=== PATIENT | male | born 1950 | race Caucasian/White ===

== ENCOUNTER → 2017-07-06 09:35 | Outpatient (CLI) | payer MEDICARE, SELFPAY ==
[2017-07-06 10:56] LABS: PSA,Total- Diagnostic < 0.01 ng/mL (0.0-4.0)
== END ==
PROVIDERS: Family Provider Family Medicine; PCP Family Medicine; Visit Provider Urology
DX: C61 Malignant neoplasm of prostate (principal)
CPT/HCPCS: 36415; 84153

== ENCOUNTER → 2017-10-15 10:00 | Outpatient (CLI) | payer MEDICARE, SELFPAY ==
--- NOTE | 2017-10-15 10:00 | DT_ITS ---
This patient was seen during an EMR downtime October 08, 2017 - October 15, 2017. This patient may have a combination of paper and electronic documentation or all paper documentation. All documentation is viewable within the e-chart portion of [facility] for each patient visit.
[2017-10-15 10:44] LABS: PSA,Total- Diagnostic < 0.01 ng/mL (0.0-4.0)
== END ==
PROVIDERS: Family Provider Family Medicine; PCP Family Medicine; Visit Provider Urology
DX: C61 Malignant neoplasm of prostate (principal)
CPT/HCPCS: 36415; 84153

== ENCOUNTER 2018-01-29 10:42 | Day surgery (SDC) | payer MEDICARE, SELFPAY ==
--- NOTE | 2018-01-29 12:58 | OP.PCM_ITS ---
Problem List (1) Atrial fibrillation Status: Acute Operative Report Date of Procedure: 01/29/18 Procedure: Synchronized biphasic DC cardioversion Indications: Atrial fibrillation Consent: Per the patient Premedications: Per Dr. Shade Sutton pulmonology and critical care medicine with propofol 60 mg IV push total Procedure: Synchronized biphasic DC cardioversion: 200 J x1: Result: Sinus rhythm with PACs Complications: No apparent complications This note was generated with [employer] dictation software. It may contain incorrect words, spelling, and punctuation that were not noted in checking the note before signing.
--- NOTE | 2018-01-29 15:06 | OP.PCM_ITS ---
Problem List (1) Atrial fibrillation Status: Acute Qualifiers: Atrial fibrillation type: chronic Qualified Code(s): I48.2 - Chronic atrial fibrillation (2) Obesity (BMI 30-39.9) Status: Acute (3) Prostate cancer Status: Acute Operative Report Date of Procedure: 01/29/18 - Conscious sedation CONSCIOUS SEDATION REPORT BRIEF HISTORY OF PRESENT ILLNESS: The patient is a 67-year-old male who presented to [facility] for an elective outpatient cardioversion due to underlying atrial fibrillation. The patient reports no PO intake since midnight. The patient does have a history of obstructive sleep apnea. The patient reports a history of smoking, but denies COPD. The patient denies any recent constitutional symptoms such as f chavez, chills, nausea or vomiting. The patient denies previous anesthetic complications. Patient's last known ejection fraction of 55%. PHYSICAL EXAMINATION: VITAL SIGNS: Reviewed and were acceptable. GENERAL: The patient is an obese male, in no apparent distress, speaking in full sentences. HEENT: Normocephalic, atraumatic. Mucous membranes are moist and pink. Good mouth opening noted. Trachea is midline. Good neck mobility. MP IV CHEST: S1, S2 irregularly irregular. No murmurs, rubs or gallops were noted. LUNGS: Clear to auscultation bilaterally without appreciable wheezes, rales or rhonchi. ABDOMEN: Soft, nontender, nondistended. Positive bowel sounds. EXTREMITIES: There is no clubbing, cyanosis or edema. ASA Class: II DESCRIPTION OF PROCEDURE: After confirmation of informed consent, the patient's anesthesia plan was reviewed in detail. Propofol was chosen. Risks and benefits were reviewed and the patient agreed to proceed. At 12:28 PM, the patient was given 40 mg of propofol. The patient required a total of 60 mg of propofol throughout the procedure to achieve appropriate sedation. The patient achieved an appropriate level of sedation and received 1 attempt s synchronized cardioversion, at [address] Torres at the bedside. This was successful in achieving normal sinus rhythm. The patient was monitored until 12:34 PM, at which time the patient reached their baseline mental status and function. The patient tolerated the procedure well. COMPLICATIONS: None ESTIMATED BLOOD LOSS: None RECOMMENDATIONS: Okay to recover in usual fashion. Code Visit [id number]: Other Procedure See Report - [id number]
== END 2018-01-29 14:00 | disposition home or self-care (01) ==
LOC: CLSP 10:43
PROVIDERS: Family Provider Family Medicine; PCP Family Medicine; Visit Provider Internal Medicine Cardiovascular Disease
DX: I48.0 Paroxysmal atrial fibrillation (principal); I10 Essential (primary) hypertension; E78.5 Hyperlipidemia, unspecified; G47.33 Obstructive sleep apnea (adult) (pediatric); Z79.01 Long term (current) use of anticoagulants; Z87.891 Personal history of nicotine dependence
CPT/HCPCS: 92960; 93005; J7040

== ENCOUNTER → 2018-04-16 08:57 | Outpatient (CLI) | payer MEDICARE, SELFPAY ==
[2018-04-16 10:21] LABS: PSA,Total- Diagnostic < 0.01 ng/mL (0.0-4.0)
--- OUTSIDE RECORDS SUMMARY | 2018-06-02 07:27 | XMS RPT_ITS ---
:1950 Author Organization [facility] Care Team Providers Name Role Phone CHITO MCCLELLAN Attending Unavailable VY, CHITO E Referring Unavailable HATIPOGLU, UMUR Attending Unavailable HATIPOGLU, UMUR Referring Unavailable RADHA KAMARA Attending Unavailable RADHA KAMARA Referring Unavailable VY, CHITO E Referring Unavailable VY, CHITO E Referring Unavailable VY, CHITO E Referring Unavailable VY, CHITO E Referring Unavailable HATIPOGLU, UMUR Attending Unavailable HATIPOGLU, UMUR Referring Unavailable VIDHI ATKINSON (BRUSH MACHINE SETTER) Attending Unavailable RADHA KAMARA Referring Unavailable VY, CHITO E Referring Unavailable VY, CHITO E Attending Unavailable RADHA KAMARA Referring Unavailable RADHA KAMARA Attending Unavailable RADHA KAMARA Referring Unavailable RADHA KAMARA Referring Unavailable RADHA KAMARA Referring Unavailable HATIPOGLU, UMUR Referring Unavailable HATIPOGLU, UMUR Referring Unavailable HATIPOGLU, UMUR Attending Unavailable KENNA, MARCIANO Hand Referring Unavailable RADHA KAMARA Attending Unavailable RADHA KAMARA Referring Unavailable ELDERBROCK, RADHA Russell Referring Unavailable ELDERBROCK, RADHA Russell Attending Unavailable ELDERBROCK, RADHA Russell Referring Unavailable THORPE, VIDHI (BRUSH MACHINE SETTER) Attending Unavailable THORPE, VIDHI (BRUSH MACHINE SETTER) Referring Unavailable ISIDRO, CYNDI T Admitting Unavailable ISIDRO, CYNDI Fernandez Attending Unavailable THORPE, VIDHI (BRUSH MACHINE SETTER) Referring Unavailable VY, CHITO E Referring Unavailable VY, CHITO E Attending Unavailable VY, CHITO E Referring Unavailable ELDERBROCK, RADHA Russell Referring Unavailable VY, CHITO E Referring Unavailable VY, CHITO E Referring Unavailable VY, CHITO E Referring Unavailable THORPE, VIDHI (BRUSH MACHINE SETTER) Attending Unavailable THORPE, VIDHI (BRUSH MACHINE SETTER) Referring Unavailable Denzel, Sina Santos Attending Unavailable Denzel, Sina Santos Referring Unavailable Elderbrock, Radha Primary Care Unavailable Denzel, Sina Santos Attending Unavailable Denzel, iSna Santos Referring Unavailable Elderbrock, Radha Primary Care Unavailable Denzel, Sina Santos Attending Unavailable Denzel, Sina Santos Referring Unavailable Elderbrock, Radha Primary Care Unavailable MoodisTommy phelan Attending Unavailable MoodispaTommy amin Referring Unavailable Elderbrock, Radha Primary Care Unavailable Tommy Torres Attending Unavailable MoodTommy de jesus Referring Unavailable Elderbrock, Radha Primary Care Unavailable Tommy Torres Consulting Unavailable PROBLEMS PROBLEMS DATE TYPE CONDITION / CODE ATTENDING STATUS SOURCE 04/16/2018 Unknown C61 - Malignant Sina Mahoney Active [facility] C61(ICD-10) Repository 04/16/2018 Active Gastro-esophageal VIDHI ATKINSON Active [facility] reflux disease (BRUSH MACHINE SETTER) [place] without esophagitis Repository / K21.9(ICD-10) 02/26/2018 Active Cough / R05(ICD-10) ISIDRO, Active [facility] CYNDI Fernandez [place] Repository 11/23/2017 Active Paroxysmal atrial NA Active [facility] fibrillation / [facility] [place] I48.0(ICD-10) Repository 10/24/2017 Active Unspecified atrial NA Active [facility] fibrillation / [facility] [place] I48.91(ICD-10) Repository 08/28/2012 Active Obstructive sleep NA Active [facility] apnea (adult) [place] (pediatric) / Repository G47.33(ICD-10) 10/24/2017 Active Unspecified asthma, NA Active [facility] uncomplicated / [place] J45.909(ICD-10) Repository 03/17/2005 Active Essential (primary) NA Active [facility] hypertension / [facility] I10(ICD-10) Repository 06/18/2017 Active Encounter for NA Active [facility] general adult [facility] medical examination Repository without abnormal findings / Z00.00(ICD-10) 06/18/2017 Active Elevated prostate NA Active [facility] specific antigen [facility] (PSA) / Repository R97.20(ICD-10) 06/18/2017 Active Encounter for NA Active [facility] screening for [facility] lipoid disorders / Repository Z13.220(ICD-10) PROCEDURES PROCEDURES No Procedure Records FoundRESULTS RESULTS PSA,TOTAL- DIAGNOSTIC Collected: 04/16/2018 Status: F Source: [place] 9:[address] [facility] REPOSITORY TYPE CODE TESTS RESULT OUT OF RANGE REFERENCE UNITS LAB [id number] 0.0-4.0 ng/mL PSA, Normal DIAGNOSTIC < 0.01 Result Comment: This test was performed using the TPSA assay method for the [employer] chemistry system. Values obtained with different assay methods cannot be used interchangably. When changing PSA assays in the course of monitoring a patient, additional sequential testing should be carried out to confirm baseline values. Performed By: #### [id number] #### [facility] [address] [place], [address] PROGRESS Observed: 04/16/2018 Status: COMPLETED Source: [place] 8:[address] [facility] REPOSITORY HNO ID: [id number] Author: Vidhi Atkinson Service: (none) Author Type: Nurse Practitioner Type: Progress Notes Filed: 04/16/2018 8:45 AM Note Text: Silviano Rangel a 67 year old male who is returning for follow up regarding cough. I saw the patient in consultation on 11/27/17. That note has been reviewed. His Oral And Maxillofacial Pathologist is at [facility]. ? The patient was seen by Dr. Galloway for upper endoscopy 02/26/18. The procedure report has been reviewed and findings as follows: Impression: ? - Normal examined jejunum. ? - Normal examined duodenum. ? - Normal stomach. Biopsied. ? - Normal lower third of esophagus. Biopsied. ? - Normal middle third of esophagus. Biopsied. ? FINAL DIAGNOSIS 1. Antrum, biopsy (A) ?Antral mucosa with minimal chronic inflammation; no evidence of H. pylori. 2. Esophagogastric junction, biopsy (B) - Squamous mucosa with mild reactive changes. - No evidence of intestinal metaplasia or dysplasia. 3. Mid esophagus, biopsy (C) - Squamous mucosa with no diagnostic alteration. - No evidence of eosinophilic esophagitis. ? On follow up 03/06/18 I reviewed the procedure and pathology reports, as well as the images, with the patient. At that visit he was reporting that he has been taking omeprazole 40mg each morning. Now able to ramp up his physical activity. Using Prilosec OTC, which he felt does help with the cough and any reflux. He told me that by 5:00 (12 hours after first dose) he starts to experience shortness of breath. He told me that he hasn't had a cough for quite some time. Asked if he should take another omeprazole with dinner. I suggested trying ranitidine at dinner. He agreeed. The patient was seen in Pulmonary medicine on 03/20/18 for the shortness of breath. That note has been reviewed. Presenting complaint: The patient presents today stating that he has been able to increase his exercise. Now faster and increased incline on the treadmill. He tells me that he would like to try pantoprazole. REVIEW OF SYSTEMS: GENERAL: No unplanned weight loss. GI: The patient states that his appetite has been good. He does get hungry. There has not been indigestion or heartburn. There has not been regurgitation. Bowel habits have been regular. No abdominal pain. All other reviewed and negative other than HPI. PAST MEDICAL HISTORY Diagnosis Date - Abdominal pain, generalized - Arrhythmia - Asthma - Dilated aortic root (HCC) - Dyspnea on exertion 11/2017 - Mild aortic insufficiency - Obstructive sleep apnea - PAF (paroxysmal atrial fibrillation) ([facility]) 11/23/2017 - RBBB - Snoring - Unspecified essential hypertension Essential hypertension PAST SURGICAL HISTORY Procedure Laterality Date - APPENDECTOMY - CARPAL TUNNEL RIGHT WRIST 01/04/10 - COLONOSCOP W/ OR W/O [facility] SPEC 01/20/07 screening thru [facility] - COLONOSCOP W/ OR W/O [facility] SPEC 07/25/2016 normal colonoscopy 10 year follow up - EGD W/O OR W/BRUSH/WASH 06/23/2008 EGD - EGD W/O OR W/BRUSH/WASH 02/26/2018 EGD - LAP CHOLECYSTECT/CHOLANGIOGRAPHY 07/07/08 - LEFT WRIST CARPAL TUNNEL ONLY 01/04/10 - PAST SURGICAL HISTORY OF 01/2004 HEEL SPUR left - PAST SURGICAL HISTORY OF 11/16/2016 Nose procedure, by Dr. Chua - PAST SURGICAL HISTORY OF N/A 05/23/2017 Prostectomy - Dr. Cohen - REMOVAL OF HEEL SPUR 12/20/09 right heel - REMOVAL OF TONSILS,<12 Y/O Tonsillectomy - REPAIR ROTATOR CUFF,ACUTE Rotator cuff repair - ROTATOR CUFF REPAIR 2011 right FAMILY HISTORY Problem Relation Age of Onset - Heart Mother - Stroke Mother - None Father - None Brother Current Outpatient Prescriptions: fluticasone-salmeterol (ADVAIR DISKUS) 100-50 mcg/dose dsdv Inhale 1 Puff as instructed twice daily. Rinse and gargle mouth with water after each use. Disp: 1 Inhaler Rfl: 5 omeprazole (PRILOSEC) 20 mg capsule Take 1 capsule by mouth once daily. Disp: 180 capsule Rfl: 3 ranitidine (ZANTAC) 150 mg tablet Take 1 tablet by mouth daily with dinner. Take one (1) tablet twice a day. Disp: 90 tablet Rfl: 3 losartan-hydrochlorothiazide (HYZAAR) 100-25 mg per tablet Take 1 tablet by mouth once daily. Disp: 90 tablet Rfl: 3 apixaban (ELIQUIS) 5 mg tab(s) Take 1 tablet by mouth twice daily. Disp: 60 tablet Rfl: 11 triamcinolone (KENALOG) 0.025 % cream Apply 1 application to affected area twice daily. Disp: 30 g Rfl: 2 COMPOUNDED PRESCRIPTION CPAP @ 11 cm of water with humidification. Mask (per patient preference) optional chin strap (if indicated) , filters, tubing, humidifier and lifetime supplies. Dx. TAE 327.23 Disp: Rfl: 0 Cholecalciferol, Vitamin D3, 1,000 unit cap Take 1 capsule by mouth once daily. Disp: Rfl: 0 vitamin b complex (B-COMPLEX) ORAL Tab one tablet daily Disp: 0 Rfl: 0 No current facility-administered medications for this visit. SOCIAL HISTORY: Patient is . He smoked for about a year, 40 years ago. He reports his alcohol use as never. PHYSICAL EXAMINATION: Blood pressure 127/83, pulse 101, height 182.9 cm (6'), weight 122.9 kg (271 lb). General Appearance: Well appearing, alert, in no acute distress, well-hydrated, well nourished. Eyes: Anicteric sclera. Lungs: lungs clear to auscultation. No wheezing, rhonchi, rales. Heart: RRR without murmur. Abdomen: Abdomen soft, non-tender. Bowel sounds normal. No masses, organomegaly. Extremities: No deformities, edema. Impression: GERD without esophagitis Plan: Switch to pantoprazole. May stop ranitidine. MyChart update. 3 month follow up. He agrees with this plan. I have personally interviewed and examined this patient. I have reviewed the information that the CATTLE FARMER entered for this encounter. I spent 20 minutes in the visit, with greater than 50% of the total mfjh-ya-unfp time of the visit in counseling and coordination of care. Vidhi Atkinson RN APRN.RENEE CNOV Observed: 04/16/2018 Status: COMPLETED Source: [place] 8:[address] [facility] REPOSITORY [facility] SILVIANO RANGEL ([id number]) 1950 M Date Time Provider Department 04/16/18 8:10 AM VIDHI ATKINSON (DEBORAH) [facility] During your visit today, we recorded the following information about you: Pulse Blood pressure Weight Height 101/minute 127/83 122.9 kg 1.829 m Vidhi Atkinson RN APRN.RENEE 04/16/2018 8:45 AM Signed Silviano Rangel a 67 year old male who is returning for follow up regarding cough. I saw the patient in consultation on 11/27/17. That note has been reviewed. His Oral And Maxillofacial Pathologist is at [facility]. ? The patient was seen by Dr. Galloway for upper endoscopy 02/26/18. The procedure report has been reviewed and findings as follows: Impression: ? - Normal examined jejunum. ? - Normal examined duodenum. ? - Normal stomach. Biopsied. ? - Normal lower third of esophagus. Biopsied. ? - Normal middle third of esophagus. Biopsied. ? FINAL DIAGNOSIS 1. Antrum, biopsy (A) ?Antral mucosa with minimal chronic inflammation; no evidence of H. pylori. 2. Esophagogastric junction, biopsy (B) - Squamous mucosa with mild reactive changes. - No evidence of intestinal metaplasia or dysplasia. 3. Mid esophagus, biopsy (C) - Squamous mucosa with no diagnostic alteration. - No evidence of eosinophilic esophagitis. ? On follow up 03/06/18 I reviewed the procedure and pathology reports, as well as the images, with the patient. At that visit he was reporting that he has been taking omeprazole 40mg each morning. Now able to ramp up his physical activity. Using Prilosec OTC, which he felt does help with the cough and any reflux. He told me that by 5:00 (12 hours after first dose) he starts to experience shortness of breath. He told me that he hasn't had a cough for quite some time. Asked if he should take another omeprazole with dinner. I suggested trying ranitidine at dinner. He agreeed. The patient was seen in Pulmonary medicine on 03/20/18 for the shortness of breath. That note has been reviewed. Presenting complaint: The patient presents today stating that he has been able to increase his exercise. Now faster and increased incline on the treadmill. He tells me that he would like to try pantoprazole. REVIEW OF SYSTEMS: GENERAL: No unplanned weight loss. GI: The patient states that his appetite has been good. He does get hungry. There has not been indigestion or heartburn. There has not been regurgitation. Bowel habits have been regular. No abdominal pain. All other reviewed and negative other than HPI. PAST MEDICAL HISTORY Diagnosis Date - Abdominal pain, generalized - Arrhythmia - Asthma - Dilated aortic root (HCC) - Dyspnea on exertion 11/2017 - Mild aortic insufficiency - Obstructive sleep apnea - PAF (paroxysmal atrial fibrillation) (HCC) 11/23/2017 - RBBB - Snoring - Unspecified essential hypertension Essential hypertension PAST SURGICAL HISTORY Procedure Laterality Date - APPENDECTOMY - CARPAL TUNNEL RIGHT WRIST 01/04/10 - COLONOSCOP W/ OR W/O [facility] SPEC 01/20/07 screening thru [facility] - COLONOSCOP W/ OR W/O [facility] SPEC 07/25/2016 normal colonoscopy 10 year follow up - EGD W/O OR W/BRUSH/WASH 06/23/2008 EGD - EGD W/O OR W/BRUSH/WASH 02/26/2018 EGD - LAP CHOLECYSTECT/CHOLANGIOGRAPHY 07/07/08 - LEFT WRIST CARPAL TUNNEL ONLY 01/04/10 - PAST SURGICAL HISTORY OF 01/2004 HEEL SPUR left - PAST SURGICAL HISTORY OF 11/16/2016 Nose procedure, by Dr. Chua - PAST SURGICAL HISTORY OF N/A 05/23/2017 Prostectomy - Dr. Cohen - REMOVAL OF HEEL SPUR 12/20/09 right heel - REMOVAL OF TONSILS,<12 Y/O Tonsillectomy - REPAIR ROTATOR CUFF,ACUTE Rotator cuff repair - ROTATOR CUFF REPAIR 2011 right FAMILY HISTORY Problem Relation Age of Onset - Heart Mother - Stroke Mother - None Father - None Brother Current Outpatient Prescriptions: fluticasone-salmeterol (ADVAIR DISKUS) 100-50 mcg/dose dsdv Inhale 1 Puff as instructed twice daily. Rinse and gargle mouth with water after each use. Disp: 1 Inhaler Rfl: 5 omeprazole (PRILOSEC) 20 mg capsule Take 1 capsule by mouth once daily. Disp: 180 capsule Rfl: 3 ranitidine (ZANTAC) 150 mg tablet Take 1 tablet by mouth daily with dinner. Take one (1) tablet twice a day. Disp: 90 tablet Rfl: 3 losartan-hydrochlorothiazide (HYZAAR) 100-25 mg per tablet Take 1 tablet by mouth once daily. Disp: 90 tablet Rfl: 3 apixaban (ELIQUIS) 5 mg tab(s) Take 1 tablet by mouth twice daily. Disp: 60 tablet Rfl: 11 triamcinolone (KENALOG) 0.025 % cream Apply 1 application to affected area twice daily. Disp: 30 g Rfl: 2 COMPOUNDED PRESCRIPTION CPAP @ 11 cm of water with humidification. Mask (per patient preference) optional chin strap (if indicated) , filters, tubing, humidifier and lifetime supplies. Dx. TAE 327.23 Disp: Rfl: 0 Cholecalciferol, Vitamin D3, 1,000 unit cap Take 1 capsule by mouth once daily. Disp: Rfl: 0 vitamin b complex (B-COMPLEX) ORAL Tab one tablet daily Disp: 0 Rfl: 0 No current facility-administered medications for this visit. SOCIAL HISTORY: Patient is . He smoked for about a year, 40 years ago. He reports his alcohol use as never. PHYSICAL EXAMINATION: Blood pressure 127/83, pulse 101, height 182.9 cm (6'), weight 122.9 kg (271 lb). General Appearance: Well appearing, alert, in no acute distress, well-hydrated, well nourished. Eyes: Anicteric sclera. Lungs: lungs clear to auscultation. No wheezing, rhonchi, rales. Heart: RRR without murmur. Abdomen: Abdomen soft, non-tender. Bowel sounds normal. No masses, organomegaly. Extremities: No deformities, edema. Impression: GERD without esophagitis Plan: Switch to pantoprazole. May stop ranitidine. Mobiveilhart update. 3 month follow up. He agrees with this plan. I have personally interviewed and examined this patient. I have reviewed the information that the CATTLE FARMER entered for this encounter. I spent 20 minutes in the visit, with greater than 50% of the total ilqm-aw-lvzd time of the visit in counseling and coordination of care. Vidhi Atkinson RN APRN.RENEE Atkinson RN APRN.RENEE 04/16/2018 8:37 AM Signed Try the pantoprazole. You may stop the ranitidine in a few days. Send me an update via Bouf. Follow up in 3 months. Referring Provider: VIDHI ATKINSON (DEBORAH) [[id number]] Allergies As of Date: 04/16/2018 (No Known Allergies) Date Reviewed: 04/16/2018 Reviewed by: Ade Martínez LPN - Fully Assessed Reason for Visit: follow up questions [Other] Primary Visit Diagnosis:Gastroesophageal reflux disease, esophagitis presence not specified [K21.9] Order(s):ranitidine (ZANTAC) 150 mg tabletTake 1 tablet by mouth daily with dinner.Disp: 90 tabletRfl: [address] (PROTONIX) 40 mg tabletTake 1 tablet by mouth once daily.Disp: 30 tabletRfl: 5 Prescriptions as of 04/16/2018 Sig: APIXABAN 5 MG TABLET Take 1 tablet by mouth twice * CHOLECALCIFEROL (VITAMIN D3) * Take 1 capsule by mouth once * COMPOUNDED PRESCRIPTION CPAP @ 11 cm of water with hu* FLUTICASONE 100 MCG-SALMETERO* Inhale 1 Puff as instructed t* LOSARTAN 100 MG-HYDROCHLOROTH* Take 1 tablet by mouth once d* RANITIDINE 150 MG TABLET Take 1 tablet by mouth daily * TRIAMCINOLONE ACETONIDE 0.025* Apply 1 application to affect* * B-COMPLEX TABLET one tablet daily PANTOPRAZOLE 40 MG TABLET,DEL* Take 1 tablet by mouth once d* Problem List As Of Date 04/16/2018 Noted Resolved BENIGN HYPERTENSION [I10] INVALID FOR* Sleep disturbance, unspecified [G47.9] INVALID FOR*12/26/2017 STOMACH FUNCTION DIS NEC [K31.89, R10.13] INVALID FOR* Abdominal pain, generalized [R10.84] INVALID FOR*12/26/2017 Nausea alone [R11.0] INVALID FOR*12/26/2017 Anxiety [F41.9] INVALID FOR* Hypogonadism male [E29.1] INVALID FOR* TAE (obstructive sleep apnea) [G47.33] INVALID FOR* More... Elevated prostate specific antigen (PSA) [R97.2*INVALID FOR* Encounter for screening for malignant neoplasm *INVALID FOR* Attention deficit disorder [F98.8] INVALID FOR* PAF (paroxysmal atrial fibrillation) (HCC) [I48*INVALID FOR* Cough in adult [R05] INVALID FOR*12/26/2017 More... Uncomplicated asthma [J45.909] INVALID FOR* Dermatitis [L30.9] INVALID FOR* Other instructions from your clinician: Try the pantoprazole. You may stop the ranitidine in a few days. Send me an update via Bouf. Follow up in 3 months. Prescriptions ordered this encounter Disp Refills Start End RANITIDINE 150 MG TABLET 90 t* 3 04/16/2018 Class: Med Update Route: ORAL Sig: Take 1 tablet by mouth daily with dinner. PANTOPRAZOLE 40 MG TABLET,DELAYED RE* 30 t* 5 04/16/2018 Route: ORAL Sig: Take 1 tablet by mouth once daily. Medications Discontinued During This Encounter ranitidine (ZANTAC) 150 mg tablet 90 t* 3 03/06/2018 04/16/2018 Class: Print RX Route: ORAL Sig: Take 1 tablet by mouth daily with dinner. Take one (1) tablet twice a day. Disc: Adjust Sig - Block E-Cancel omeprazole (PRILOSEC) 20 mg capsule 180 * 3 03/06/2018 04/16/2018 Class: Print RX Route: ORAL Sig: Take 1 capsule by mouth once daily. Disc: Changing Therapy/Dosage Form Disposition: Return in about 3 months (around 07/15/2018). Follow-up and Disposition History Recorded Encounter Status:Closed by VIDHI ATKINSON CNP on 04/16/18 CNOV Observed: 03/20/2018 Status: COMPLETED Source: [place] 7:[address] [facility] REPOSITORY Office Visit ([place]) SILVIANO RANGEL ([id number]) 1950 M Date Time Provider Department 03/20/18 7:55 AM ASHLEY JESUS During your visit today, we recorded the following information about you: Temperature Pulse Respiration Blood pressure 97.7 degrees 74/minute 18/minute 151/86 Weight Height 117.9 kg 1.88 m Ashley Jesus MD 03/20/2018 8:26 AM Signed Pulmonary Outpatient Follow Up Patient Name: Silviano Rangel CC: Asthma Paroxysmal Atrial fibrillation GERD TAE on CPAP Interval History: Last visit was 12/19/2017, at the time Mr Rangel was experiencing worsening shortness of breath with asthma exacerbation. He was prescribed prednisone and asking for adherence ot Advair 250/50 one inhalation twice per day. He reports his asthma is well controlled. He recently underwent an emergent cardioversion 01/29/2018 for atrial fibrillation. The procedure was completed with one sychronized biphasic shock at 200J with him returning to [facility] with PACS. He is on Eliquis and for anticoagulation and in sinus. For his Gerd he underwent an EGD on 02/26/2018 which was visualized as normal. Biopsies showed minimal chronic inflammation and mild reactive changes. They were negative for eosinophilic esophagitis, h.pylori, metaplasia and dysplasia. He is taking omeprazole 20 mg daily and rantidine 150 mg twice per day He reports compliance with his CPAP. He has been using cpap at 11 cmH20 with humidification since 2012. Immunizations: --high flu zone 01/25/2018 --prevnar 06/21/2016 Airway Routine: --fluticasone-salmeterol (advair) 250-50 one inhalation twice a day(rinse, gargle, and spit after each inhalation) Extended HPI Mr. Rangel is a 67 year old male with a past medical history of HTN and TAE who presented for a dry cough of 2 months duration, with some variable wheezing and SOB associated at times. He was given Tessalon perles which did not help cough, then placed on prednisone taper and antibiotic with some relief, but symptoms returned with steroid taper. He went to the ER and urgent care twice with SOB. He reported normal chest Xrays (not available for review). He had been very responsive to bronchodilators and oral steroid courses, with reoccurrence of cough, wheezing and SOB when tapering. He took 10mg Prednisone every other day. He used Flovent once or twice daily only when he was not feeling well. He did not use Albuterol inhaler. ? 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 Sometimes, he is affected by PVC coated fabric smoke that comes out from the machines. He remembers that his major trouble with breathing occurred during the weekdays and not over the weekends. Review of Systems Constitutional SX: Denies fever, weight loss, night sweats, malaise Eyes: denies diplopia, visual disturbance, eye redness or pain ENT: denies hoarseness, nasal discharge, oral ulcers, nonasal congestion, denies epistaxis, no throat clearing. Cardiovascular: denies angina, palpitations, orthopnea, PND, peripheral edema Respiratory: see HPI Gastrointestinal: denies odynophagia, dysphasia, nausea, vomiting,hematemesis, melanas, hematochezia, no gerd symptoms on PPI Musculoskeletal: denies joint swelling, nojoint pain, no back pain Endocrine: denies heat or cold intolerance, denies polyuria Genitourinary: denies hematuria, Integumentary: denies skin nodules, rashes Neurological: denies syncope, seizures, tremors, headaches, focal weakness Psychiatric: denies anxiety, depression, hallucinations Hematologic/Lymph: denies prolonged bleeding, swollen nodes, bruising easily Sleep: denies disruptive snoring,apneas or difficulties sleeping Physical Exam: BP 151/86 Pulse 74 Temp 36.5 ?C (97.7 ?F) (Temporal Artery) Resp 18 Ht 188 cm (6' 2) Wt 117.9 kg (260 lb) SpO2 97% BMI 33.38 kg/m? General Appearance: no resp distress Neuro: ambulatory normal mood Head: no sinus tenderness Eyes: isocoric pupils-reactive to ligh normal extra ocular movement Nose: No polyps, turbinates are normal and septum is midline Throat: clear Neck: no JVD, no palapable LN Chest: normal thoracic expansion, clear Heart: RRR no murmurs-normal s1 s2 Abdomen: soft non tender Extremities: no peripheral edema, clubbing, or cyanosis Neurologic: Normal strength, normal tone, normal gait. Data Base: Pred ? ? ? LLN ? ULN ? ? ? Pre ? ? % ? ? ? Post ? ? ?% ? ? % chg ? Date ? [id number] ? [id number] ? Time ?02:46PM ?03:13PM ? Height ?176.6 ?176.6 ? Weight ?121.5 ?121.5 ? FVC ?4.56 ? ? ?3.64 ?5.48 ? ? ?3.23 ? ? 71 ? ? ?3.29 ? ? 72 ? 2 ? FEV 1 ?3.41 ? ? ?2.64 ?4.19 ? ? ?2.37 ? ? 70 ? ? ?2.58 ? ? 76 ? 9 ? FEV1%F ? ? ?74.84 ? ? 65.17 84.52 ? ? 73.57 ? ? 98 ? ? 78.46 ? ?105 ? 7 ? FEV 2 ?3.70 ? ? ?2.66 ?4.74 ? ? ?2.76 ? ? 75 ? ? ?2.91 ? ? 79 ? 6 ? FEV 3 ?4.20 ? ? ?3.18 ?5.22 ? ? ?2.88 ? ? 69 ? ? ?3.03 ? ? 72 ? 5 ? FEV3%E ? ? ?91.74 ? ? 87.10 96.38 ? ? 89.27 ? ? 97 ? ? 92.20 ? ?101 ? 3 ? MEF 50 ? ? ? 4.20 ? ? ?2.57 ?5.82 ? ? ?2.15 ? ? 51 ? ? ?2.75 ? ? 65 ?28 ? FIF 50 ? 5.51 ? 3.99 ?-28 ? F25/75 ? 2.73 ? ? ?1.15 ?4.31 ? ? ?1.66 ? ? 61 ? ? ?2.22 ? ? 81 ?34 ? FE%FIF ?39.01 ?68.86 ? 77 ? FEV6 ? 3.08 ? 3.18 ?3 ? PEF ?8.37 ? ? ?6.01 10.73 ? ? ?7.99 ? ? 96 ? ? ?8.19 ? ? 98 ? 2 ? FET ? 13.24 ?10.97 ?-17 ? FETPEF ? 0.05 ? 0.04 ?-20 ? VBe%FV ? 3.72 ? 1.95 ?-47 ? VBEex ?0.12 ? 0.06 ?-47 ? FRCpl ?3.62 ? ? ?2.16 ?5.08 ? ? ?2.64 ? ? 73 ? ERV ?0.12 ? RV ? 2.30 ? ? ?1.54 ?3.06 ? ? ?2.52 ? ?110 ? VC ? 4.56 ? ? ?3.64 ?5.48 ? ? ?3.81 ? ? 84 ? TLC ?6.91 ? ? ?5.30 ?8.52 ? ? ?6.34 ? ? 92 ? RV%TLC ? ? ?33.84 ? ? 25.04 42.64 ? ? 39.83 ? ?118 ? DLCO ?27.32 ? ? 19.32 35.33 ? ? 23.89 ? ? 87 ? DL/VA ?4.15 ? ? ?2.95 ?5.35 ? ? ?4.45 ? ?107 ? VA ? 6.73 ? ? ?5.36 ?8.10 ? ? ?5.36 ? ? 80 ? IGNACIO ?4.56 ? ? ?3.64 ?5.48 ? ? ?3.48 ? ? 76 ? BHT ? 11.25 ? %COHb ?0.00 ? Ct of Chest 07/02/2017: 2. Lungs and Pleura: ?Minimal curvilinear opacities in the left lateral costophrenic sulcus (images 118-120). ?No pleural effusion, pneumothorax, or focal consolidation. ?3 mm noncalcified right upper lobe nodule (image 48). ?Scattered calcified granulomata in both lungs. ASTHMA CONTROL TEST Date: 03/20/2018 1. In the last 4 weeks, how much of the time did your asthma keep you from getting as much done at work or home that you wanted to do? None of the time (5) 2. In the last 4 weeks, how often have you had shortness of breath? Once or twice per week (4) 3. In the last 4 weeks, how often did your asthma symptoms (wheezing, coughing, shortness of breath, chest tightness or pain) wake you up at night or earlier than usual? Not at all (5) 4. In the last 4 weeks, how often have you used your rescue inhaler or nebulizer medication (such as Albuterol, Proventil, Ventolin, Maxair, Xoponex, or Primatene Mist)? Not at all (5) 5. In the last 4 weeks, how would you rate your asthma control? Completely controlled (5) Total: more than 20 Impression: Mild intermittent asthma TAE PAF Plan: Doing well Reduce Advair 100/50 1 inh BID Weight loss Continue Eliquis; no need for beta shad or amiodarone Flu shot done at OSH Ashley Jesus MD Respiratory [place] [facility] [place] Referring Provider: ASHLEY JESUS [[id number]] Allergies As of Date: 03/20/2018 (No Known Allergies) Date Reviewed: 03/20/2018 Reviewed by: Ashley Jesus - Fully Assessed Reason for Visit: Recheck [92] Primary Visit Diagnosis:TAE (obstructive sleep apnea) [G47.33] Other Visit Diagnoses:Mild intermittent asthma without complication [J45.20] Gastroesophageal reflux disease, esophagitis presence not specified [K21.9] PAF (paroxysmal atrial fibrillation) ([facility]) [I48.0] Order(s):fluticasone-salmeterol (ADVAIR DISKUS) 100-50 mcg/dose dsdvInhale 1 Puff as instructed twice daily. Rinse and gargle mouth with water after each use.Disp: 1 InhalerRfl: 5 Prescriptions as of 03/20/2018 Sig: FLUTICASONE 100 MCG-SALMETERO* Inhale 1 Puff as instructed t* OMEPRAZOLE 20 MG CAPSULE,SAIDA* Take 1 capsule by mouth once * RANITIDINE 150 MG TABLET Take 1 tablet by mouth daily * LOSARTAN 100 MG-HYDROCHLOROTH* Take 1 tablet by mouth once d* APIXABAN 5 MG TABLET Take 1 tablet by mouth twice * TRIAMCINOLONE ACETONIDE 0.025* Apply 1 application to affect* COMPOUNDED PRESCRIPTION CPAP @ 11 cm of water with hu* CHOLECALCIFEROL (VITAMIN D3) * Take 1 capsule by mouth once * * B-COMPLEX TABLET one tablet daily Problem List As Of Date 03/20/2018 Noted Resolved BENIGN HYPERTENSION [I10] INVALID FOR* Sleep disturbance, unspecified [G47.9] INVALID FOR*12/26/2017 STOMACH FUNCTION DIS NEC [K31.89, R10.13] INVALID FOR* Abdominal pain, generalized [R10.84] INVALID FOR*12/26/2017 Nausea alone [R11.0] INVALID FOR*12/26/2017 Anxiety [F41.9] INVALID FOR* Hypogonadism male [E29.1] INVALID FOR* TAE (obstructive sleep apnea) [G47.33] INVALID FOR* More... Elevated prostate specific antigen (PSA) [R97.2*INVALID FOR* Encounter for screening for malignant neoplasm *INVALID FOR* Attention deficit disorder [F98.8] INVALID FOR* PAF (paroxysmal atrial fibrillation) (HCC) [I48*INVALID FOR* Cough in adult [R05] INVALID FOR*12/26/2017 More... Uncomplicated asthma [J45.909] INVALID FOR* Dermatitis [L30.9] INVALID FOR* Prescriptions ordered this encounter Disp Refills Start End FLUTICASONE 100 MCG-SALMETEROL 50 MC* 1 In* 5 03/20/2018 Route: INHALATION Sig: Inhale 1 Puff as instructed twice daily. Rinse and gargle mouth with water after each use. Medications Discontinued During This Encounter fluticasone-salmeterol (ADVAIR DISKU* 1 In* 5 12/19/2017 03/20/2018 Route: INHALATION Sig: Inhale 1 Puff as instructed twice daily. Rinse and gargle mouth with water after each use. Disc: Reason for discontinue is not on file. Disposition: Return in about 6 months (around 09/17/2018). Follow-up and Disposition History Recorded Questionnaire: ASTHMA CONTROL TEST Last 4 weeks, your asthma limited your activity at work or home: -> 5 NONE OF THE TIME Past 4 weeks, how often have you had shortness of breath? -> 4 ONCE OR TWICE A WEEK Past 4 weeks: Asthma symptoms woke you at night or earlier than usual? -> 5 NOT AT ALL Past 4 weeks: How often did you use rescue inhaler or nebulizer med? -> 5 NOT AT ALL Rate your Asthma Control during the past 4 weeks: -> 5 COMPLETELY CONTROLLED ACT TOTAL SCORE: -> 24 Encounter Status:Closed by ASHLEY JESUS MD on 03/20/18 PROGRESS Observed: 03/20/2018 Status: COMPLETED Source: [place] 7:45 AM [facility] [place] REPOSITORY HNO ID: [id number] Author: Ashley Jesus Service: (none) Author Type: Physician Type: Progress Notes Filed: 03/20/2018 8:26 AM Note Text: Pulmonary Outpatient Follow Up Patient Name: Silvaino Rangel CC: Asthma Paroxysmal Atrial fibrillation GERD TAE on CPAP Interval History: Last visit was 12/19/2017, at the time Mr Rangel was experiencing worsening shortness of breath with asthma exacerbation. He was prescribed prednisone and asking for adherence ot Advair 250/50 one inhalation twice per day. He reports his asthma is well controlled. He recently underwent an emergent cardioversion 01/29/2018 for atrial fibrillation. The procedure was completed with one sychronized biphasic shock at 200J with him returning to [facility] with PACS. He is on Eliquis and for anticoagulation and in sinus. For his Gerd he underwent an EGD on 02/26/2018 which was visualized as normal. Biopsies showed minimal chronic inflammation and mild reactive changes. They were negative for eosinophilic esophagitis, h.pylori, metaplasia and dysplasia. He is taking omeprazole 20 mg daily and rantidine 150 mg twice per day He reports compliance with his CPAP. He has been using cpap at 11 cmH20 with humidification since 2012. Immunizations: --high flu zone 01/25/2018 --prevnar 06/21/2016 Airway Routine: --fluticasone-salmeterol (advair) 250-50 one inhalation twice a day(rinse, gargle, and spit after each inhalation) Extended HPI Mr. Rangel is a 67 year old male with a past medical history of HTN and TAE who presented for a dry cough of 2 months duration, with some variable wheezing and SOB associated at times. He was given Tessalon perles which did not help cough, then placed on prednisone taper and antibiotic with some relief, but symptoms returned with steroid taper. He went to the ER and urgent care twice with SOB. He reported normal chest Xrays (not available for review). He had been very responsive to bronchodilators and oral steroid courses, with reoccurrence of cough, wheezing and SOB when tapering. He took 10mg Prednisone every other day. He used Flovent once or twice daily only when he was not feeling well. He did not use Albuterol inhaler. ? 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 Sometimes, he is affected by PVC coated fabric smoke that comes out from the machines. He remembers that his major trouble with breathing occurred during the weekdays and not over the weekends. Review of Systems Constitutional SX: Denies fever, weight loss, night sweats, malaise Eyes: denies diplopia, visual disturbance, eye redness or pain ENT: denies hoarseness, nasal discharge, oral ulcers, nonasal congestion, denies epistaxis, no throat clearing. Cardiovascular: denies angina, palpitations, orthopnea, PND, peripheral edema Respiratory: see HPI Gastrointestinal: denies odynophagia, dysphasia, nausea, vomiting,hematemesis, melanas, hematochezia, no gerd symptoms on PPI Musculoskeletal: denies joint swelling, nojoint pain, no back pain Endocrine: denies heat or cold intolerance, denies polyuria Genitourinary: denies hematuria, Integumentary: denies skin nodules, rashes Neurological: denies syncope, seizures, tremors, headaches, focal weakness Psychiatric: denies anxiety, depression, hallucinations Hematologic/Lymph: denies prolonged bleeding, swollen nodes, bruising easily Sleep: denies disruptive snoring,apneas or difficulties sleeping Physical Exam: BP 151/86 Pulse 74 Temp 36.5 ?C (97.7 ?F) (Temporal Artery) Resp 18 Ht 188 cm (6' 2) Wt 117.9 kg (260 lb) SpO2 97% BMI 33.38 kg/m? General Appearance: no resp distress Neuro: ambulatory normal mood Head: no sinus tenderness Eyes: isocoric pupils-reactive to ligh normal extra ocular movement Nose: No polyps, turbinates are normal and septum is midline Throat: clear Neck: no JVD, no palapable LN Chest: normal thoracic expansion, clear Heart: RRR no murmurs-normal s1 s2 Abdomen: soft non tender Extremities: no peripheral edema, clubbing, or cyanosis Neurologic: Normal strength, normal tone, normal gait. Data Base: Pred ? ? ? LLN ? ULN ? ? ? Pre ? ? % ? ? ? Post ? ? ?% ? ? % chg ? Date ? [id number] ? [id number] ? Time ?02:46PM ?03:13PM ? -- ? Height ?176.6 ?176.6 ? Weight ?121.5 ?121.5 ? -- ? FVC ?4.56 ? ? ?3.64 ?5.48 ? ? ?3.23 ? ? 71 ? ? ?3.29 ? ? 72 ? 2 ? FEV 1 ?3.41 ? ? ?2.64 ?4.19 ? ? ?2.37 ? ? 70 ? ? ?2.58 ? ? 76 ? 9 ? FEV1%F ? ? ?74.84 ? ? 65.17 84.52 ? ? 73.57 ? ? 98 ? ? 78.46 ? ?105 ? 7 ? FEV 2 ?3.70 ? ? ?2.66 ?4.74 ? ? ?2.76 ? ? 75 ? ? ?2.91 ? ? 79 ? 6 ? FEV 3 ?4.20 ? ? ?3.18 ?5.22 ? ? ?2.88 ? ? 69 ? ? ?3.03 ? ? 72 ? 5 ? FEV3%E ? ? ?91.74 ? ? 87.10 96.38 ? ? 89.27 ? ? 97 ? ? 92.20 ? ?101 ? 3 ? MEF 50 ? ? ? 4.20 ? ? ?2.57 ?5.82 ? ? ?2.15 ? ? 51 ? ? ?2.75 ? ? 65 ?28 ? FIF 50 ? 5.51 ? 3.99 ?-28 ? F25/75 ? 2.73 ? ? ?1.15 ?4.31 ? ? ?1.66 ? ? 61 ? ? ?2.22 ? ? 81 ?34 ? FE%FIF ?39.01 ?68.86 ? 77 ? FEV6 ? 3.08 ? 3.18 ?3 ? PEF ?8.37 ? ? ?6.01 10.73 ? ? ?7.99 ? ? 96 ? ? ?8.19 ? ? 98 ? 2 ? FET ? 13.24 ?10.97 ?-17 ? FETPEF ? 0.05 ? 0.04 ?-20 ? VBe%FV ? 3.72 ? 1.95 ?-47 ? VBEex ?0.12 ? 0.06 ?-47 ? -- ? -- ? -- ? -- ? FRCpl ?3.62 ? ? ?2.16 ?5.08 ? ? ?2.64 ? ? 73 ? ERV ?0.12 ? RV ? 2.30 ? ? ?1.54 ?3.06 ? ? ?2.52 ? ?110 ? VC ? 4.56 ? ? ?3.64 ?5.48 ? ? ?3.81 ? ? 84 ? TLC ?6.91 ? ? ?5.30 ?8.52 ? ? ?6.34 ? ? 92 ? RV%TLC ? ? ?33.84 ? ? 25.04 42.64 ? ? 39.83 ? ?118 ? -- ? DLCO ?27.32 ? ? 19.32 35.33 ? ? 23.89 ? ? 87 ? DL/VA ?4.15 ? ? ?2.95 ?5.35 ? ? ?4.45 ? ?107 ? VA ? 6.73 ? ? ?5.36 ?8.10 ? ? ?5.36 ? ? 80 ? IGNACIO ?4.56 ? ? ?3.64 ?5.48 ? ? ?3.48 ? ? 76 ? BHT ? 11.25 ? %COHb ?0.00 ? -- ? -- ? Ct of Chest 07/02/2017: 2. Lungs and Pleura: ?Minimal curvilinear opacities in the left lateral costophrenic sulcus (images 118-120). ?No pleural effusion, pneumothorax, or focal consolidation. ?3 mm noncalcified right upper lobe nodule (image 48). ?Scattered calcified granulomata in both lungs. ASTHMA CONTROL TEST Date: 03/20/2018 1. In the last 4 weeks, how much of the time did your asthma keep you from getting as much done at work or home that you wanted to do? None of the time (5) 2. In the last 4 weeks, how often have you had shortness of breath? Once or twice per week (4) 3. In the last 4 weeks, how often did your asthma symptoms (wheezing, coughing, shortness of breath, chest tightness or pain) wake you up at night or earlier than usual? Not at all (5) 4. In the last 4 weeks, how often have you used your rescue inhaler or nebulizer medication (such as Albuterol, Proventil, Ventolin, Maxair, Xoponex, or Primatene Mist)? Not at all (5) 5. In the last 4 weeks, how would you rate your asthma control? Completely controlled (5) Total: more than 20 Impression: Mild intermittent asthma TAE PAF Plan: Doing well Reduce Advair 100/50 1 inh BID Weight loss Continue Eliquis; no need for beta shad or amiodarone Flu shot done at OSH Ashley Jesus MD Respiratory [place] [facility] [place] CNOV Observed: 03/06/2018 Status: COMPLETED Source: [place] 8:[address] [facility] REPOSITORY Office Visit ([facility]) SILVIANO RANGEL ([id number]) 1950 M Date Time Provider Department 03/06/18 8:10 AM VIDHI ATKINSON ([facility]) [facility] During your visit today, we recorded the following information about you: Pulse Blood pressure Weight Height 99/minute 136/90 122.9 kg 1.854 m Vidhi Atkinson RN MINE MOTOR ENGINEER.WEIGHT GUESSER 03/06/2018 8:39 AM Signed Silviano Rangel a 67 year old male who is returning for follow up regarding cough. I saw the patient in consultation on 11/27/17. That note has been reviewed. His Oral And Maxillofacial Pathologist is at [facility]. The patient was seen by Dr. Galloway for upper endoscopy 02/26/18. The procedure report has been reviewed and findings as follows: Impression: ? - Normal examined jejunum. ? - Normal examined duodenum. ? - Normal stomach. Biopsied. ? - Normal lower third of esophagus. Biopsied. ? - Normal middle third of esophagus. Biopsied. FINAL DIAGNOSIS 1. Antrum, biopsy (A) ?Antral mucosa with minimal chronic inflammation; no evidence of H. pylori. 2. Esophagogastric junction, biopsy (B) - Squamous mucosa with mild reactive changes. - No evidence of intestinal metaplasia or dysplasia. 3. Mid esophagus, biopsy (C) - Squamous mucosa with no diagnostic alteration. - No evidence of eosinophilic esophagitis. I have reviewed the procedure and pathology reports, as well as the images, with the patient. Presenting complaint: The patient presents today stating that he has been taking omeprazole 40mg each morning. Now able to ramp up his physical activity. Using Prilosec OTC, which he feels does help with the cough and any reflux. He tells me that by 5:00 (12 hours after first dose) he starts to experience shortness of breath. He tells me that he hasn't had a cough for quite some time. Asking if he should take another omeprazole with dinner. I have suggested trying ranitidine at dinner. He agrees. The patient sees his access specialist next week. REVIEW OF SYSTEMS: GENERAL: No unplanned weight loss. RESPIRATORY: No cough. Mild SOB around dinner time - at rest. CARDIOVASCULAR: No chest pain or palpitations. Has HTN GI: The patient states that his appetite has been good. He does get hungry. There has been no nausea or vomiting. He denies dysphagia and denies odynophagia. There has not been indigestion or heartburn. There has not been regurgitation. Bowel habits have been regular. There has not been diarrhea. There has not been constipation. The patient denies rectal bleeding. There has not been melena. No abdominal pain. All other reviewed and negative other than HPI. PAST MEDICAL HISTORY Diagnosis Date - Abdominal pain, generalized - Arrhythmia - Asthma - Dilated aortic root (HCC) - Dyspnea on exertion 11/2017 - Mild aortic insufficiency - Obstructive sleep apnea - PAF (paroxysmal atrial fibrillation) ([facility]) 11/23/2017 - RBBB - Snoring - Unspecified essential hypertension Essential hypertension PAST SURGICAL HISTORY Procedure Laterality Date - APPENDECTOMY - CARPAL TUNNEL RIGHT WRIST 01/04/10 - COLONOSCOP W/ OR W/O [facility] SPEC 01/20/07 screening thru [facility] - COLONOSCOP W/ OR W/O [facility] SPEC 07/25/2016 normal colonoscopy 10 year follow up - EGD W/O OR W/BRUSH/WASH 06/23/2008 EGD - EGD W/O OR W/BRUSH/WASH 02/26/2018 EGD - LAP CHOLECYSTECT/CHOLANGIOGRAPHY 07/07/08 - LEFT WRIST CARPAL TUNNEL ONLY 01/04/10 - PAST SURGICAL HISTORY OF 01/2004 HEEL SPUR left - PAST SURGICAL HISTORY OF 11/16/2016 Nose procedure, by Dr. Chua - PAST SURGICAL HISTORY OF N/A 05/23/2017 Prostectomy - Dr. Cohen - REMOVAL OF HEEL SPUR 12/20/09 right heel - REMOVAL OF TONSILS,<12 Y/O Tonsillectomy - REPAIR ROTATOR CUFF,ACUTE Rotator cuff repair - ROTATOR CUFF REPAIR 2010 right FAMILY HISTORY Problem Relation Age of Onset - Heart Mother - Stroke Mother - None Father - None Brother Current Outpatient Prescriptions: losartan-hydrochlorothiazide (HYZAAR) 100-25 mg per tablet Take 1 tablet by mouth once daily. Disp: 90 tablet Rfl: 3 fluticasone-salmeterol (ADVAIR DISKUS) 250-50 mcg/dose dsdv Inhale 1 Puff as instructed twice daily. Rinse and gargle mouth with water after each use. Disp: 1 Inhaler Rfl: 5 apixaban (ELIQUIS) 5 mg tab(s) Take 1 tablet by mouth twice daily. Disp: 60 tablet Rfl: 11 triamcinolone (KENALOG) 0.025 % cream Apply 1 application to affected area twice daily. Disp: 30 g Rfl: 2 COMPOUNDED PRESCRIPTION CPAP @ 11 cm of water with humidification. Mask (per patient preference) optional chin strap (if indicated) , filters, tubing, humidifier and lifetime supplies. Dx. TAE 327.23 Disp: Rfl: 0 Cholecalciferol, Vitamin D3, 1,000 unit cap Take 1 capsule by mouth once daily. Disp: Rfl: 0 vitamin b complex (B-COMPLEX) ORAL Tab one tablet daily Disp: 0 Rfl: 0 No current facility-administered medications for this visit. SOCIAL HISTORY: Patient is . He quit smoking over 40 years ago. Silviano reports his alcohol use as never. PHYSICAL EXAMINATION: Blood pressure 136/90, pulse 99, height 185.4 cm (6' 1), weight 122.9 kg (271 lb). General Appearance: Well appearing, alert, in no acute distress, well-hydrated, well nourished. Skin: Skin color, texture, turgor normal, no suspicious rashes or lesions. Eyes: Anicteric sclera. Neck: Supple, no adenopathy. Lungs: Lungs clear to auscultation. No wheezing, rhonchi, rales. Heart: RRR without murmur. Abdomen: Normal abdominal exam, Abdomen soft, non-tender. Bowel sounds normal. No masses, organomegaly. Extremities: No deformities, edema, skin discoloration, clubbing or cyanosis. Impression: Cough- resolved. GERD Plan: Continue omeprazole. Trial adding ranitidine at dinner. follow up 04/15. Sooner, if needed. He agrees. I have personally interviewed and examined this patient. I have reviewed the information that the MA entered for this encounter. I spent 25 minutes in the visit, with greater than 50% of the total tlix-ci-ojup time of the visit in counseling and coordination of care. Vidhi Atkinson RN MINE MOTOR ENGINEER.RENEE Atkinson RN APRN.RENEE 03/06/2018 8:29 AM Signed Take 2 of the omeprazole each morning. Try adding one ranitidine (Zantac 150mg) around dinner time. You may take two, if needed. Elevate your head for 3 hours after eating- don't head to bed before that. Follow up on April 15, arriving at 8:10. Send Shippter messages with any concerns in the mean time. Referring Provider: VIDHI ATKINSON (BRUSH MACHINE SETTER) [[id number]] Allergies As of Date: 03/06/2018 (No Known Allergies) Date Reviewed: 03/06/2018 Reviewed by: Anamika Ontiveros Ma - Fully Assessed Reason for Visit: Surgical Followup [104] Primary Visit Diagnosis:Gastroesophageal reflux disease without esophagitis [K21.9] Other Visit Diagnosis:Cough in adult [R05] Order(s):omeprazole (PRILOSEC) 20 mg capsuleTake 1 capsule by mouth once daily.Disp: 180 capsuleRfl: 3 ranitidine (ZANTAC) 150 mg tabletTake 1 tablet by mouth daily with dinner. Take one (1) tablet twice a day.Disp: 90 tabletRfl: 3 Prescriptions as of 03/06/2018 Sig: OMEPRAZOLE 20 MG CAPSULE,SAIDA* Take 1 capsule by mouth once * RANITIDINE 150 MG TABLET Take 1 tablet by mouth daily * LOSARTAN 100 MG-HYDROCHLOROTH* Take 1 tablet by mouth once d* FLUTICASONE 250 MCG-SALMETERO* Inhale 1 Puff as instructed t* APIXABAN 5 MG TABLET Take 1 tablet by mouth twice * TRIAMCINOLONE ACETONIDE 0.025* Apply 1 application to affect* COMPOUNDED PRESCRIPTION CPAP @ 11 cm of water with hu* CHOLECALCIFEROL (VITAMIN D3) * Take 1 capsule by mouth once * * B-COMPLEX TABLET one tablet daily Problem List As Of Date 03/06/2018 Noted Resolved BENIGN HYPERTENSION [I10] INVALID FOR* Sleep disturbance, unspecified [G47.9] INVALID FOR*12/26/2017 STOMACH FUNCTION DIS NEC [K31.89, R10.13] INVALID FOR* Abdominal pain, generalized [R10.84] INVALID FOR*12/26/2017 Nausea alone [R11.0] INVALID FOR*12/26/2017 Anxiety [F41.9] INVALID FOR* Hypogonadism male [E29.1] INVALID FOR* TAE (obstructive sleep apnea) [G47.33] INVALID FOR* More... Elevated prostate specific antigen (PSA) [R97.2*INVALID FOR* Encounter for screening for malignant neoplasm *INVALID FOR* Attention deficit disorder [F98.8] INVALID FOR* PAF (paroxysmal atrial fibrillation) (HCC) [I48*INVALID FOR* Cough in adult [R05] INVALID FOR*12/26/2017 More... Uncomplicated asthma [J45.909] INVALID FOR* Dermatitis [L30.9] INVALID FOR* Other instructions from your clinician: Take 2 of the omeprazole each morning. Try adding one ranitidine (Zantac 150mg) around dinner time. You may take two, if needed. Elevate your head for 3 hours after eating- don't head to bed before that. Follow up on Sunday, April 15, arriving at 8:10. Send Shippter messages with any concerns in the mean time. Prescriptions ordered this encounter Disp Refills Start End OMEPRAZOLE 20 MG CAPSULE,DELAYED REL* 180 * 3 03/06/2018 Class: Print RX Route: ORAL Sig: Take 1 capsule by mouth once daily. RANITIDINE 150 MG TABLET 90 t* 3 03/06/2018 Class: Print RX Route: ORAL Sig: Take 1 tablet by mouth daily with dinner. Take one (1) tablet twice a day. Encounter Status:Closed by VIDHI ATKINSON CNP on 03/06/18 PROGRESS Observed: 03/05/2018 Status: COMPLETED Source: [place] 12:[address] [facility] REPOSITORY HNO ID: [id number] Author: Vidhi (Deborah) [place] Service: (none) Author Type: Nurse Practitioner Type: Progress Notes Filed: 03/06/2018 8:39 AM Note Text: Silviano Rangel a 67 year old male who is returning for follow up regarding cough. I saw the patient in consultation on 11/27/17. That note has been reviewed. His Oral And Maxillofacial Pathologist is at [facility]. The patient was seen by Dr. Galloway for upper endoscopy 02/26/18. The procedure report has been reviewed and findings as follows: Impression: ? - Normal examined jejunum. ? - Normal examined duodenum. ? - Normal stomach. Biopsied. ? - Normal lower third of esophagus. Biopsied. ? - Normal middle third of esophagus. Biopsied. FINAL DIAGNOSIS 1. Antrum, biopsy (A) ?Antral mucosa with minimal chronic inflammation; no evidence of H. pylori. 2. Esophagogastric junction, biopsy (B) - Squamous mucosa with mild reactive changes. - No evidence of intestinal metaplasia or dysplasia. 3. Mid esophagus, biopsy (C) - Squamous mucosa with no diagnostic alteration. - No evidence of eosinophilic esophagitis. I have reviewed the procedure and pathology reports, as well as the images, with the patient. Presenting complaint: The patient presents today stating that he has been taking omeprazole 40mg each morning. Now able to ramp up his physical activity. Using Prilosec OTC, which he feels does help with the cough and any reflux. He tells me that by 5:00 (12 hours after first dose) he starts to experience shortness of breath. He tells me that he hasn't had a cough for quite some time. Asking if he should take another omeprazole with dinner. I have suggested trying ranitidine at dinner. He agrees. The patient sees his access specialist next week. REVIEW OF SYSTEMS: GENERAL: No unplanned weight loss. RESPIRATORY: No cough. Mild SOB around dinner time - at rest. CARDIOVASCULAR: No chest pain or palpitations. Has HTN GI: The patient states that his appetite has been good. He does get hungry. There has been no nausea or vomiting. He denies dysphagia and denies odynophagia. There has not been indigestion or heartburn. There has not been regurgitation. Bowel habits have been regular. There has not been diarrhea. There has not been constipation. The patient denies rectal bleeding. There has not been melena. No abdominal pain. All other reviewed and negative other than HPI. PAST MEDICAL HISTORY Diagnosis Date - Abdominal pain, generalized - Arrhythmia - Asthma - Dilated aortic root (HCC) - Dyspnea on exertion 11/2017 - Mild aortic insufficiency - Obstructive sleep apnea - PAF (paroxysmal atrial fibrillation) ([facility]) 11/23/2017 - RBBB - Snoring - Unspecified essential hypertension Essential hypertension PAST SURGICAL HISTORY Procedure Laterality Date - APPENDECTOMY - CARPAL TUNNEL RIGHT WRIST 01/04/10 - COLONOSCOP W/ OR W/O [facility] SPEC 01/20/07 screening thru [facility] - COLONOSCOP W/ OR W/O [facility] SPEC 07/25/2016 normal colonoscopy 10 year follow up - EGD W/O OR W/BRUSH/WASH 06/23/2008 EGD - EGD W/O OR W/BRUSH/WASH 02/26/2018 EGD - LAP CHOLECYSTECT/CHOLANGIOGRAPHY 07/07/08 - LEFT WRIST CARPAL TUNNEL ONLY 01/04/10 - PAST SURGICAL HISTORY OF 01/2004 HEEL SPUR left - PAST SURGICAL HISTORY OF 11/16/2016 Nose procedure, by Dr. Chua - PAST SURGICAL HISTORY OF N/A 05/23/2017 Prostectomy - Dr. Cohen - REMOVAL OF HEEL SPUR 12/20/09 right heel - REMOVAL OF TONSILS,<12 Y/O Tonsillectomy - REPAIR ROTATOR CUFF,ACUTE Rotator cuff repair - ROTATOR CUFF REPAIR 2011 right FAMILY HISTORY Problem Relation Age of Onset - Heart Mother - Stroke Mother - None Father - None Brother Current Outpatient Prescriptions: losartan-hydrochlorothiazide (HYZAAR) 100-25 mg per tablet Take 1 tablet by mouth once daily. Disp: 90 tablet Rfl: 3 fluticasone-salmeterol (ADVAIR DISKUS) 250-50 mcg/dose dsdv Inhale 1 Puff as instructed twice daily. Rinse and gargle mouth with water after each use. Disp: 1 Inhaler Rfl: 5 apixaban (ELIQUIS) 5 mg tab(s) Take 1 tablet by mouth twice daily. Disp: 60 tablet Rfl: 11 triamcinolone (KENALOG) 0.025 % cream Apply 1 application to affected area twice daily. Disp: 30 g Rfl: 2 COMPOUNDED PRESCRIPTION CPAP @ 11 cm of water with humidification. Mask (per patient preference) optional chin strap (if indicated) , filters, tubing, humidifier and lifetime supplies. Dx. TAE 327.23 Disp: Rfl: 0 Cholecalciferol, Vitamin D3, 1,000 unit cap Take 1 capsule by mouth once daily. Disp: Rfl: 0 vitamin b complex (B-COMPLEX) ORAL Tab one tablet daily Disp: 0 Rfl: 0 No current facility-administered medications for this visit. SOCIAL HISTORY: Patient is . He quit smoking over 40 years ago. Silviano reports his alcohol use as never. PHYSICAL EXAMINATION: Blood pressure 136/90, pulse 99, height 185.4 cm (6' 1), weight 122.9 kg (271 lb). General Appearance: Well appearing, alert, in no acute distress, well-hydrated, well nourished. Skin: Skin color, texture, turgor normal, no suspicious rashes or lesions. Eyes: Anicteric sclera. Neck: Supple, no adenopathy. Lungs: Lungs clear to auscultation. No wheezing, rhonchi, rales. Heart: RRR without murmur. Abdomen: Normal abdominal exam, Abdomen soft, non-tender. Bowel sounds normal. No masses, organomegaly. Extremities: No deformities, edema, skin discoloration, clubbing or cyanosis. Impression: Cough- resolved. GERD Plan: Continue omeprazole. Trial adding ranitidine at dinner. follow up 04/15. Sooner, if needed. He agrees. I have personally interviewed and examined this patient. I have reviewed the information that the CA entered for this encounter. I spent 25 minutes in the visit, with greater than 50% of the total nzlm-ja-tuju time of the visit in counseling and coordination of care. Vidhi Atkinson RN MINE MOTOR ENGINEER.[facility] NURSING PROG Observed: 02/26/2018 Status: COMPLETED Source: [place] 11:[address] [facility] REPOSITORY HNO ID: [id number] Author: Joycelyn Hubbard RN Service: (none) Author Type: Registered Nurse Type: Nursing Progress Note Filed: 02/26/2018 11:10 AM Note Text: Patient did not experience a fall prior to discharge. Patient did not experience a burn prior to discharge. Joycelyn Hubbard RN PT ED Observed: 02/26/2018 Status: COMPLETED Source: [place] 10:[address] [facility] REPOSITORY HNO ID: [id number] Author: Joycelyn Hubbard RN Service: (none) Author Type: Registered Nurse Type: Patient Education Filed: 02/26/2018 10:53 AM Note Text: POST OP LEARNING RESPONSE INSTRUCTION PROVIDED TO: Patient and friend/other METHOD OF INSTRUCTION: Individual instruction Written instruction - handouts Verbal instruction PATIENT / FAMILY RESPONSE: Verbalizes understanding of: INFECTION MANAGEMENT-Signs and symptoms of an infection and importance of contacting the physician MEDICAL REGIMEN-Importance of following prescribed medical regimen PAIN MANAGEMENT-Effective strategies to manage pain in addition to pain medication PHYSICAL RESTRICTIONS-Physical restrictions and recommendations after discharge from the hospital POST-PROCEDURE INSTRUCTIONS-Correct actions to take to reduce post procedure complications SYMPTOM MANAGEMENT-Correct actions to take to manage symptoms associated with his/her disease/illness WORSENING CONDITION-Signs and symptoms of a worsening condition that warrant a call to the physician FOLLOW-UP PLAN: Patient instructed to call with any further issues Follow up phone call. Contact information given. SUPPLEMENTAL MATERIAL: AVS REFERRAL (RECOMMENDATION): None Electronically Signed By: Joycelyn Hubbard RN In Department: AMBULATORY SURGERY NURSING PROG Observed: 02/26/2018 Status: COMPLETED Source: [place] 10:[address] [facility] REPOSITORY HNO ID: [id number] Author: Joycelyn Hubbard RN Service: (none) Author Type: Registered Nurse Type: Nursing Progress Note Filed: 02/26/2018 10:52 AM Note Text: Patient eating and drinking without problems. Joycelyn Hubbard RN NURSING PROG Observed: 02/26/2018 Status: COMPLETED Source: [place] 10:[address] [facility] REPOSITORY HNO ID: [id number] Author: Joycelyn Hubbard RN Service: (none) Author Type: Registered Nurse Type: Nursing Progress Note Filed: 02/26/2018 10:52 AM Note Text: Patient arrived to PACU, on left side, abdomen soft. Patient resting comfortably. Joycelyn Hubbard RN NURSING PROG Observed: 02/26/2018 Status: COMPLETED Source: [place] 10:[address] [facility] REPOSITORY HNO ID: [id number] Author: Kate DonaldRnJv Andre RN Service: Nursing Author Type: Registered Nurse Type: Nursing Progress Note Filed: 02/26/2018 10:34 AM Note Text: Patient did not experience a fall within the Intraoperative area. Patient did not experience a burn within the Intraoperative area.Kate Andre RN NURSING PROG Observed: 02/26/2018 Status: COMPLETED Source: [place] 10:[address] [facility] REPOSITORY HNO ID: [id number] Author: Misty Melo RN Service: (none) Author Type: Registered Nurse Type: Nursing Progress Note Filed: 02/26/2018 10:15 AM Note Text: [facility] PRE-OP NURSING HAND OFF NOTE SBAR Hand off given to Kate Andre RN. Hand off was communicated verbally and at the patient's bedside and all questions were answered. FALLS/GUTHRIE Patient did not experience a fall within the Preoperative area. Patient did not experience a burn within the Preoperative area. Misty Melo RN HISTORY PHYSICAL Observed: 02/26/2018 Status: COMPLETED Source: [place] 10:[address] [facility] REPOSITORY HNO ID: [id number] Author: Cyndi Galloway Service: General Surgery Author Type: Physician Type: HANDP Filed: 02/26/2018 10:02 AM Note Text: Silviano Rangel a 67 year old male who is a consultation requested by Dr. Kamara for an opinion regarding acid reflux. My final recommendations will be communicated back to the requesting physician by way of shared Medical record. The patient has not been seen previously. ? The patient sees Dr. Mcclellan and was started on Xarelto for PAF. He plans to change to Eliquis, as it is less expensive. ? The patient was seen by Dr. Kamara on 11/14/17, leading to this consultation. That note has been reviewed and part as follows: Asthma - Notes that he is trying to use OTC PPI (Prilosec)?to help with his?dry cough with no phlegm. He feels this does help with the cough at times as well as him reducing acidic foods. Discussed this with a family member who had these same issues and a scope performed at ENT.?Follows with Oral And Maxillofacial Pathologist, Dr. El at [facility]. ? ? Presenting complaint: The patient presents today reporting a dry cough. He was seen by Pulmonary. On medications, still with symptoms. ? The patient tells me that tried OTC PPI since a relative had similar symptoms and saw ENT was told she has acid reflux. He tells me that he is 85% better since starting it about a month ago. He also cut back on coffee and lemon in his water. ? The patient has also lost over 40 pounds. He eats a healthy diet. Usually has dinner about 5:30-6:00. Sometimes has a snack of fruit or celery with pb. Heads to bed about 9-9:30. He sleeps with the head of the bed flat. He uses CPAP. I have recommended elevating the head of the bed. ? ? REVIEW OF SYSTEMS: GENERAL: Weight loss - planned. HEENT: Negative for frequent or significant headaches, No changes in hearing or vision, no nose bleeds or other nasal problems NECK: Negative for lumps, goiter, pain and significant neck swelling RESPIRATORY: Cough; dry, presumed asthma. CARDIOVASCULAR: Shortness of breath, See HPI. On medication for Afib. GI: The patient states that his appetite has been good. He does get hungry. There has been no nausea, no vomiting. He denies dysphagia and denies odynophagia. There has not been indigestion or heartburn. There has not been regurgitation. Bowel habits have been regular. There has not been diarrhea. There has not been constipation. The patient denies rectal bleeding. There has not been melena. No abdominal pain. HEMATOLOGY/LYMPHOLOGY: Potential due to medication. ENDOCRINE: Negative for thyroid and diabetes. NEURO: No history of headaches, syncope, paralysis, seizures or tremors All other reviewed and negative other than HPI. ? PAST?MEDICAL?HISTORY PAST MEDICAL HISTORY Diagnosis Date - Abdominal pain, generalized ? - Asthma ? - Obstructive sleep apnea ? - PAF (paroxysmal atrial fibrillation) (HCC) 11/23/2017 - Snoring ? - Unspecified essential hypertension ? ? Essential hypertension ? ? PAST?SURGICAL?HISTORY PAST SURGICAL HISTORY Procedure Laterality Date - APPENDECTOMY ? ? - CARPAL TUNNEL RIGHT WRIST ? 01/04/10 - COLONOSCOP W/ OR W/O [facility] SPEC ? 01/20/07 ? screening thru [facility] - COLONOSCOP W/ OR W/O [facility] SPEC ? 07/25/2016 ? normal colonoscopy 10 year follow up - EGD W/O OR W/BRUSH/WASH ? 06/23/2008 ? EGD - LAP CHOLECYSTECT/CHOLANGIOGRAPHY ? 07/07/08 - LEFT WRIST CARPAL TUNNEL ONLY ? 01/04/10 - PAST SURGICAL HISTORY OF ? 01/2004 ? HEEL SPUR left - PAST SURGICAL HISTORY OF ? 11/16/2016 ? Nose procedure, by Dr. Chua - PAST SURGICAL HISTORY OF N/A 05/23/2017 ? Prostectomy - Dr. Cohen - REMOVAL OF HEEL SPUR ? 12/20/09 ? right heel - REMOVAL OF TONSILS,<12 Y/O ? ? ? Tonsillectomy - REPAIR ROTATOR CUFF,ACUTE ? ? ? Rotator cuff repair - ROTATOR CUFF REPAIR ? 2010 ? right ? ? FAMILY?HISTORY FAMILY HISTORY Problem Relation Age of Onset - Heart Mother ? - Stroke Mother ? - None Father ? - None Brother ? ? ? CURRENT?MEDICATIONS ? Current Outpatient Prescriptions: metoprolol tartrate, short acting, (LOPRESSOR) 50 mg tablet Take 0.5 tablets by mouth twice daily. Disp: 30 tablet Rfl: 6 apixaban (ELIQUIS) 5 mg tab(s) Take 1 tablet by mouth twice daily. Disp: 60 tablet Rfl: 11 losartan-hydrochlorothiazide (HYZAAR) 100-25 mg per tablet Take 1 tablet by mouth once daily. Disp: 30 tablet Rfl: 2 triamcinolone (KENALOG) 0.025 % cream Apply 1 application to affected area twice daily. Disp: 30 g Rfl: 2 COMPOUNDED PRESCRIPTION CPAP @ 11 cm of water with humidification. Mask (per patient preference) optional chin strap (if indicated) , filters, tubing, humidifier and lifetime supplies. Dx. TAE 327.23 Disp: Rfl: 0 Cholecalciferol, Vitamin D3, 1,000 unit cap Take 1 capsule by mouth once daily. Disp: Rfl: 0 vitamin b complex (B-COMPLEX) ORAL Tab one tablet daily Disp: 0 Rfl: 0 ? No current facility-administered medications for this visit. ? ? SOCIAL HISTORY: Patient is . He smoked for about a year, 40 years ago. He reports his alcohol use as never. ? ? PHYSICAL EXAMINATION: Blood pressure 131/89, pulse 91, height 185.4 cm (6' 1), weight 116.1 kg (256 lb). General Appearance: Well appearing, alert, in no acute distress, well-hydrated, well nourished. Skin: Skin color, texture, turgor normal, no suspicious rashes or lesions. Head: Normocephalic, no masses, lesions or abnormalities. Eyes: Anicteric sclera. Oropharynx: Lips, mucosa, and tongue normal, teeth and gums normal, oropharynx normal. Neck: Supple, no adenopathy; thyroid symmetric, normal size. Lungs: Lungs clear to auscultation. No wheezing, rhonchi, rales. Heart: RRR without murmur,. Abdomen: Normal abdominal exam, Abdomen soft, non-tender. Bowel sounds normal. No masses, organomegaly. Extremities: No deformities, edema, skin discoloration, clubbing or cyanosis. ? ? Impression: acid reflux ? ? Plan: Continue OTC PPI. Recommended elevating the head of the bed, or using a wedge pillow. ? The patient is scheduled for upper endoscopy with Dr. Galloway, so that he doesn't have to stop the Eliquis/Xarelto. Preparation for the procedure and the procedure itself have been explained in detail. The risks, benefits, anticipated outcomes and possible complications were mentioned. I also explained the procedure in understandable terms and the patient was given printed material concerning the planned procedure. The patient had the opportunity to ask questions concerning the planned procedure. The patient freely consents to the planned procedure. ? The patient is asked to call with any questions or concerns, or if there is a change in health status between now and the scheduled procedure. ? I have personally interviewed and examined this patient. I have read the information that the MA documented in this encounter. I spent 30 minutes in the visit, with more than 50% of the total yrek-uq-wnlb time of the visit in counseling / coordination of care. ? Vidhi Atkinson RN MINE MOTOR ENGINEER.WEIGHT GUESSER ?2:03 PM PT ED Observed: 02/26/2018 Status: COMPLETED Source: [place] 8:[address] [facility] REPOSITORY HNO ID: [id number] Author: Misty Melo RN Service: (none) Author Type: Registered Nurse Type: Patient Education Filed: 02/26/2018 8:54 AM Note Text: Discharge Instructions were reviewed pre-operatively with the patient. All questions and concerns were addressed. Misty Melo RN PRE OP LEARNING ASSESSMENT PROCEDURE/SURGERY: GI PROCEDURES: EGD READINESS TO LEARN COGNITIVE ABILITY: Alert and oriented MOTIVATION TO LEARN: Interested FAMILY SUPPORT: Unable to assess - Family not present PATIENT LEARNS BEST BY: Multiple Methods FACTORS AFFECTING LEARNING: None PHYSICAL LIMITATIONS AFFECTING LEARNING: None Electronically Signed By: Misty Melo RN In Department: AMBULATORY SURGERY SURGICAL PATHOLOGY Observed: 02/26/2018 Status: F Source: [place] 12:[address] [facility] REPOSITORY Specimen originated from [facility] Specimen #: [id number] Submitting Physician: CYNDI GALLOWAY ([id number]) FINAL DIAGNOSIS 1. Antrum, biopsy (A) Antral mucosa with minimal chronic inflammation; no evidence of H. pylori. 2. Esophagogastric junction, biopsy (B) - Squamous mucosa with mild reactive changes. - No evidence of intestinal metaplasia or dysplasia. 3. Mid esophagus, biopsy (C) - Squamous mucosa with no diagnostic alteration. - No evidence of eosinophilic esophagitis. TP/srj 02/28/2018 Michael Erwin M.D. (Electronic Signature) SPECIMEN SUBMITTED A: ANTRUM, BIOPSY H/H B: ESOPHAGOGASTRIC JUNCTION, BIOPSY C: MID ESOPHAGUS, BIOPSY CLINICAL DATA K21.9, R05 GROSS DESCRIPTION A. Received in formalin is one piece of wood, soft tissue measuring 0.3 x 0.3 x 0.3 cm. Totally submitted in one cassette. B. Received in formalin is one piece of wood, soft tissue measuring 0.3 x 0.2 x 0.2 cm. Totally submitted in one cassette. C. Received in formalin is one piece of wood-white, soft tissue measuring 0.5 x 0.2 x 0.1 cm. Totally submitted in one cassette. Gross examination performed at [facility], [address] [place] [address] VY 02/27/2018 9:05:04 AM Date of Report: 02/28/2018 Date of Procedure: 02/26/2018 Date of Receipt: 02/26/2018 Submitted by: CYNDI GALLOWAY ([id number]) Location: W01 Diagnostic interpretation performed at [place] [address]. HOSP Observed: 02/08/2018 Status: COMPLETED Source: [place] 12:00 AM [facility] Patient:Silviano Rangel MRN: <[id number]> Height:6' 0(1.829 m) Weight:266 lb 12.1 oz (121 kg) Outpatient Medications as of 02/26/18: losartan-hydrochlorothiazide (HYZAAR) 100-25 mg per tablet fluticasone-salmeterol (ADVAIR DISKUS) 250-50 mcg/dose dsdv apixaban (ELIQUIS) 5 mg tab(s) triamcinolone (KENALOG) 0.025 % cream COMPOUNDED PRESCRIPTION Cholecalciferol, Vitamin D3, 1,000 unit cap vitamin b complex (B-COMPLEX) ORAL Tab Admission/Clinic Administered Medications as of 02/26/18: lactated ringers infusion Problem List: Essential hypertension, benign [I10] Dyspepsia and other specified disorders of function of stomach [K31.89, R10.13] Anxiety [F41.9] Hypogonadism male [E29.1] TAE (obstructive sleep apnea) [G47.33] Elevated prostate specific antigen (PSA) [R97.20] Encounter for screening for malignant neoplasm of colon [Z12.11] Attention deficit disorder [F98.8] PAF (paroxysmal atrial fibrillation) (HCC) [I48.0] Uncomplicated asthma [J45.909] Dermatitis [L30.9] Allergies: No Known Allergies Date Verified:02/26/18 Lab Values No results within the last 30 days for the following basenames: K,HCT Progress Notes ([facility]): Vidhi Atkinson RN APRN.RENEE 02/06/2018 7:45 AM Signed Please contact patient to set up the EGD with Dr. Galloway. Dr. Galloway agrees with mod sedation. He has had his follow up with Dr. Mcclellan and is able to proceed. New order placed. Vidhi Atkinson RN APRN.RENEE Harvey 02/08/2018 8:41 AM Signed 1st failed attempt to contact patient, left voice message Chantelle Harvey 02/08/2018 9:14 AM Signed Patient called back scheduled him for EGD with Dr. Galloway on 02/26/2018 Chantelle Harvey Progress Notes (CARD ADMIN COUNTS INCLUDE 234 BEDS AT THE [facility]): Chito Mcclellan MD 02/05/2018 5:34 PM Signed PERTINENT CARDIAC HISTORY PAF - C-V 2 HTN HL TAE - CPAP Dilated aortic root Aortic insufficiency - mild ADHERENCE TO GUIDELINES LUCY-I or ARB for HF with prior LVEF<40 (NQF 0081) - N/A ASA or Plavix for ASHD (NQF 0067) - N/A Beta shad for ASHD with prior DE or prior LVEF<40 (NQF 0070) - N/A Beta shad for HF with prior LVEF<40 (NQF 0083) - N/A LUCY-I or ARB for ASHD with DM or prior LVEF<40 (NQF 0066) - N/A Statin therapy for ASHD or FHL or DM - N/A BMI documented and plan if >25 (NQF 0421) - lifestyle recommendation form Tobacco use screening and referral (NQF 0028) - lifestyle recommendation form Recommendation for whole food, plant based diet - lifestyle recommendation form CLINICAL IMPRESSION/PLAN: Silviano Rangel has some persistent exercise intolerance which may be related to reflux. I encouraged him to discuss this with primary care, but for the time being, he may continue his lteb-prk-[id number] Prilosec. To some extent, the exercise intolerance may be related to his beta shad. I suggested that he wean this off over the next week and let me know if this helps with his symptoms. He has been advised to follow-up with the EGD which has been recommended in the past. He recently underwent stress testing showed no evidence of ischemia. I will see him in 6 months or as needed. If he has recurrent palpitations or detects persistently irregular heart rhythm, he has been advised to contact me. I've asked him to continue Eliquis Written and verbal health teaching given to patient, patient verbalizes understanding and agrees with treatment plan. DIAGNOSIS FOR VISIT: PAF Dyspnea on exertion HISTORY OF PRESENT ILLNESS Silviano Rnagel returns for follow-up of his cardioversion. He reports that this went well. He's had no TIA symptoms following. His heart rate has been steady. He reports that his shortness of breath is persistent. However, he has noted that it gets better when he takes Nexium. He reports that his sister has GERD and was also having some shortness of breath. He's had no exertional chest discomfort. He denies edema, syncope, TIAs, amaurosis and claudication. He has had no recurrent palpitations. ALLERGIES: ALLERGIES No Known Allergies CURRENT OUTPATIENT MEDICATIONS: fluticasone-salmeterol (ADVAIR DISKUS) 250-50 mcg/dose dsdv Inhale 1 Puff as instructed twice daily. Rinse and gargle mouth with water after each use. metoprolol tartrate, short acting, (LOPRESSOR) 50 mg tablet Take 0.5 tablets by mouth twice daily. apixaban (ELIQUIS) 5 mg tab(s) Take 1 tablet by mouth twice daily. losartan-hydrochlorothiazide (HYZAAR) 100-25 mg per tablet Take 1 tablet by mouth once daily. triamcinolone (KENALOG) 0.025 % cream Apply 1 application to affected area twice daily. COMPOUNDED PRESCRIPTION CPAP @ 11 cm of water with humidification. Mask (per patient preference) optional chin strap (if indicated) , filters, tubing, humidifier and lifetime supplies. Dx. TAE 327.23 Cholecalciferol, Vitamin D3, 1,000 unit cap Take 1 capsule by mouth once daily. vitamin b complex (B-COMPLEX) ORAL Tab one tablet daily PHYSICAL EXAMINATION: VITAL SIGNS: BP 138/80 Pulse 60 Ht 6' 0 (1.83m) Wt 268 lb 11.2 oz (121.9kg) BMI 36.43 kg/(m2). Chest: Clear to auscultation. Trachea is midline. Air entry is equal. Cardiac: Regular rhythm. S1 and S2 are normal. PMI is nondisplaced. There is a 1/6 systolic ejection murmur.. Carotids are brisk without bruits. JVP is less than 10 cm. Abdomen: Soft and nontender. There are no pulsatile masses or bruits. No liver enlargement. Bowel sounds are active. Extremities: No edema. Pulses are intact and symmetrical. EKG shows sinus rhythm. There is incomplete right bundle branch block. Sinus rhythm has resumed, otherwise there is no significant change. Electronically Signed: Chito Mcclellan MD February 05, 2018 9:11 AM CC: MD Chito Dozier MD 02/05/2018 9:11 AM Signed LIFESTYLE CHANGE A healthy lifestyle is the most important component of your overall treatment plan. Please give serious thought to the following areas and commit to making senior living changes. EAT A WHOLE FOOD, PLANT BASED DIET The nutrition your body gets is more important than the medicine you take. What matters most is the overall way you eat. We encourage you to minimize the use of animal products (which include dairy and all meats except fatty fish) and use whole, unprocessed plant foods to provide your protein, vitamins and other nutrients. We have a lot of information to share with you on this topic. This is not a diet. It is a way of life that you will keep with you. EXERCISE REGULARLY It is not important to spend hours in the gym, lifting weights and perspiring heavily. A total of 2-3 hours per week of aerobic (causing you to be moderately short of breath) exercise is sufficient to improve your health. Talk to us before you begin a new exercise program, if you have heart disease or experience shortness of breath or chest pain. REDUCE STRESS Chronic emotional and physical stress leads to disease. Ways of reducing stress include meditation, visualization, prayer, yoga and other forms of relaxation therapy. Consistency is the guzman. Find a technique that works for you and do it every day. CULTIVATE RELATIONSHIPS Loneliness and isolation have a major negative impact on health. Seek out others who can love, care for and nurture you. Avoid hurtful relationships. MAINTAIN IDEAL BODY WEIGHT The best way to do this is to do all the things above. Our bodies naturally find the right weight if we keep moving and feed ourselves the right food. If your BMI is greater than 25, we strongly recommend a referral to a weight management program. Please speak to us or your family physician about available programs. AVOID NICOTINE IN ALL FORMS This includes all tobacco products, whether chewed, smoked, vaped, or rubbed on the skin. Smoking cessation programs, which can make use of tobacco substitutes, medications to suppress cravings and behavior management, are available. Please contact your family physician about programs in your area. CNNURSE Observed: 02/05/2018 Status: COMPLETED Source: [place] 1:[address] [facility] REPOSITORY Nurse Visit (CAWSTR) SILVIANO RANGEL ([id number]) 1950 M Date Time Provider Department 02/05/18 1:00 PM NURSE CARD ADMIN COUNTS INCLUDE 234 BEDS AT THE [facility] CAWSTR During your visit today, we recorded the following information about you: Referring Provider: CHITO MCCLELLAN [[id number]] Allergies As of Date: 02/05/2018 (No Known Allergies) Date Reviewed: 02/05/2018 Reviewed by: Narcisa Capone MA - Fully Assessed Reason for Visit: Nurse Visit [792] Visit Diagnoses:PAF (paroxysmal atrial fibrillation) (HCC) [I48.0] Essential hypertension, benign [I10] Order(s):ECG COMPLETE W INTERPRETATION [ECG01] Order #: [id number] Prescriptions as of 02/05/2018 Sig: METOPROLOL TARTRATE 50 MG TAB* 25 mg daily for 5 days, then * LOSARTAN 100 MG-HYDROCHLOROTH* Take 1 tablet by mouth once d* FLUTICASONE 250 MCG-SALMETERO* Inhale 1 Puff as instructed t* APIXABAN 5 MG TABLET Take 1 tablet by mouth twice * TRIAMCINOLONE ACETONIDE 0.025* Apply 1 application to affect* COMPOUNDED PRESCRIPTION CPAP @ 11 cm of water with hu* CHOLECALCIFEROL (VITAMIN D3) * Take 1 capsule by mouth once * * B-COMPLEX TABLET one tablet daily Problem List As Of Date 02/05/2018 Noted Resolved BENIGN HYPERTENSION [I10] INVALID FOR* Sleep disturbance, unspecified [G47.9] INVALID FOR*12/26/2017 STOMACH FUNCTION DIS NEC [K31.89, R10.13] INVALID FOR* Abdominal pain, generalized [R10.84] INVALID FOR*12/26/2017 Nausea alone [R11.0] INVALID FOR*12/26/2017 Anxiety [F41.9] INVALID FOR* Hypogonadism male [E29.1] INVALID FOR* TAE (obstructive sleep apnea) [G47.33] INVALID FOR* More... Elevated prostate specific antigen (PSA) [R97.2*INVALID FOR* Encounter for screening for malignant neoplasm *INVALID FOR* Attention deficit disorder [F98.8] INVALID FOR* PAF (paroxysmal atrial fibrillation) (HCC) [I48*INVALID FOR* Cough in adult [R05] INVALID FOR*12/26/2017 More... Uncomplicated asthma [J45.909] INVALID FOR* Dermatitis [L30.9] INVALID FOR* Encounter Status:Closed by DILLON FLEMING RN on 02/08/18 PROGRESS Observed: 02/05/2018 Status: COMPLETED Source: [place] 9:[address] [facility] REPOSITORY HNO ID: [id number] Author: Chito Mcclellan Service: (none) Author Type: Physician Type: Progress Notes Filed: 02/05/2018 5:34 PM Note Text: PERTINENT CARDIAC HISTORY PAF - C-V 2 HTN HL TAE - CPAP Dilated aortic root Aortic insufficiency - mild ADHERENCE TO GUIDELINES LUCY-I or ARB for HF with prior LVEF<40 (NQF 0081) - N/A ASA or Plavix for ASHD (NQF 0067) - N/A Beta shad for ASHD with prior DE or prior LVEF<40 (NQF 0070) - N/A Beta shad for HF with prior LVEF<40 (NQF 0083) - N/A LUCY-I or ARB for ASHD with DM or prior LVEF<40 (NQF 0066) - N/A Statin therapy for ASHD or FHL or DM - N/A BMI documented and plan if >25 (NQF 0421) - lifestyle recommendation form Tobacco use screening and referral (NQF 0028) - lifestyle recommendation form Recommendation for whole food, plant based diet - lifestyle recommendation form CLINICAL IMPRESSION/PLAN: Silviano Rangel has some persistent exercise intolerance which may be related to reflux. I encouraged him to discuss this with primary care, but for the time being, he may continue his [id number] Prilosec. To some extent, the exercise intolerance may be related to his beta shad. I suggested that he wean this off over the next week and let me know if this helps with his symptoms. He has been advised to follow-up with the EGD which has been recommended in the past. He recently underwent stress testing showed no evidence of ischemia. I will see him in 6 months or as needed. If he has recurrent palpitations or detects persistently irregular heart rhythm, he has been advised to contact me. I've asked him to continue Eliquis Written and verbal health teaching given to patient, patient verbalizes understanding and agrees with treatment plan. DIAGNOSIS FOR VISIT: PAF Dyspnea on exertion HISTORY OF PRESENT ILLNESS Silviano Rangel returns for follow-up of his cardioversion. He reports that this went well. He's had no TIA symptoms following. His heart rate has been steady. He reports that his shortness of breath is persistent. However, he has noted that it gets better when he takes Nexium. He reports that his sister has GERD and was also having some shortness of breath. He's had no exertional chest discomfort. He denies edema, syncope, TIAs, amaurosis and claudication. He has had no recurrent palpitations. ALLERGIES: ALLERGIES No Known Allergies CURRENT OUTPATIENT MEDICATIONS: fluticasone-salmeterol (ADVAIR DISKUS) 250-50 mcg/dose dsdv Inhale 1 Puff as instructed twice daily. Rinse and gargle mouth with water after each use. metoprolol tartrate, short acting, (LOPRESSOR) 50 mg tablet Take 0.5 tablets by mouth twice daily. apixaban (ELIQUIS) 5 mg tab(s) Take 1 tablet by mouth twice daily. losartan-hydrochlorothiazide (HYZAAR) 100-25 mg per tablet Take 1 tablet by mouth once daily. triamcinolone (KENALOG) 0.025 % cream Apply 1 application to affected area twice daily. COMPOUNDED PRESCRIPTION CPAP @ 11 cm of water with humidification. Mask (per patient preference) optional chin strap (if indicated) , filters, tubing, humidifier and lifetime supplies. Dx. TAE 327.23 Cholecalciferol, Vitamin D3, 1,000 unit cap Take 1 capsule by mouth once daily. vitamin b complex (B-COMPLEX) ORAL Tab one tablet daily PHYSICAL EXAMINATION: VITAL SIGNS: BP 138/80 Pulse 60 Ht 6' 0 (1.83m) Wt 268 lb 11.2 oz (121.9kg) BMI 36.43 kg/(m2). Chest: Clear to auscultation. Trachea is midline. Air entry is equal. Cardiac: Regular rhythm. S1 and S2 are normal. PMI is nondisplaced. There is a 1/6 systolic ejection murmur.. Carotids are brisk without bruits. JVP is less than 10 cm. Abdomen: Soft and nontender. There are no pulsatile masses or bruits. No liver enlargement. Bowel sounds are active. Extremities: No edema. Pulses are intact and symmetrical. EKG shows sinus rhythm. There is incomplete right bundle branch block. Sinus rhythm has resumed, otherwise there is no significant change. Electronically Signed: Chito Mcclellan MD February 05, 2018 9:11 AM CC: Radha Kamara MD EKG1 Observed: 02/05/2018 Status: F Source: [place] 9:[address] [facility] REPOSITORY NAME : SILVIANO RANGEL PID : [id number] : 1950 Gender : Male Race : ORD : Procedure Date : Feb 05 2018 09:00:54 Edit Date : Feb 06 2018 08:32:13 Diagnosis:SINUS BRADYCARDIA INCOMPLETE RIGHT BUNDLE BRANCH BLOCK BORDERLINE ECG NO SIGNIFICANT CHANGE FROM PREVIOUS ECG Confirmed by CHITO MCCLELLAN MD ([id number]) on 02/06/2018 8:32:11 AM Ventricular Rate : 59 BPM Atrial Rate : 59 BPM P-R Interval : 194 ms QRS Duration : 110 ms Q-T Interval : 452 ms QTC Calculation(Bezet) : 447 ms P [place] : 77 degrees R [place] : 31 degrees T [place] : 28 degrees Test Reason : Location : 136 : [place] Overread By : CHITO MCCLELLAN MD Edited By : CHITO MCCLLELAN MD Referred By : VY Acquired by : RAQUEL NARANJO Observed: 02/05/2018 Status: COMPLETED Source: [place] 8:[address] [facility] REPOSITORY Office Visit (CAWSTR) SILVIANO RANGEL ([id number]) 1950 M Date Time Provider Department 02/05/18 8:30 AM CHITO MCCLELLAN CAWSTR During your visit today, we recorded the following information about you: Pulse Blood pressure Weight Height 60/minute 138/80 121.9 kg 1.829 m Chito Mcclellan MD 02/05/2018 5:34 PM Signed PERTINENT CARDIAC HISTORY PAF - C-V 2 HTN HL TAE - CPAP Dilated aortic root Aortic insufficiency - mild ADHERENCE TO GUIDELINES LUCY-I or ARB for HF with prior LVEF<40 (NQF 0081) - N/A ASA or Plavix for ASHD (NQF 0067) - N/A Beta shad for ASHD with prior DE or prior LVEF<40 (NQF 0070) - N/A Beta shad for HF with prior LVEF<40 (NQF 0083) - N/A LUCY-I or ARB for ASHD with DM or prior LVEF<40 (NQF 0066) - N/A Statin therapy for ASHD or FHL or DM - N/A BMI documented and plan if >25 (NQF 0421) - lifestyle recommendation form Tobacco use screening and referral (NQ 0028) - lifestyle recommendation form Recommendation for whole food, plant based diet - lifestyle recommendation form CLINICAL IMPRESSION/PLAN: Silviano Rangel has some persistent exercise intolerance which may be related to reflux. I encouraged him to discuss this with primary care, but for the time being, he may continue his [id number] Prilosec. To some extent, the exercise intolerance may be related to his beta shad. I suggested that he wean this off over the next week and let me know if this helps with his symptoms. He has been advised to follow-up with the EGD which has been recommended in the past. He recently underwent stress testing showed no evidence of ischemia. I will see him in 6 months or as needed. If he has recurrent palpitations or detects persistently irregular heart rhythm, he has been advised to contact me. I've asked him to continue Eliquis Written and verbal health teaching given to patient, patient verbalizes understanding and agrees with treatment plan. DIAGNOSIS FOR VISIT: PAF Dyspnea on exertion HISTORY OF PRESENT ILLNESS Silviano Rangel returns for follow-up of his cardioversion. He reports that this went well. He's had no TIA symptoms following. His heart rate has been steady. He reports that his shortness of breath is persistent. However, he has noted that it gets better when he takes Nexium. He reports that his sister has GERD and was also having some shortness of breath. He's had no exertional chest discomfort. He denies edema, syncope, TIAs, amaurosis and claudication. He has had no recurrent palpitations. ALLERGIES: ALLERGIES No Known Allergies CURRENT OUTPATIENT MEDICATIONS: fluticasone-salmeterol (ADVAIR DISKUS) 250-50 mcg/dose dsdv Inhale 1 Puff as instructed twice daily. Rinse and gargle mouth with water after each use. metoprolol tartrate, short acting, (LOPRESSOR) 50 mg tablet Take 0.5 tablets by mouth twice daily. apixaban (ELIQUIS) 5 mg tab(s) Take 1 tablet by mouth twice daily. losartan-hydrochlorothiazide (HYZAAR) 100-25 mg per tablet Take 1 tablet by mouth once daily. triamcinolone (KENALOG) 0.025 % cream Apply 1 application to affected area twice daily. COMPOUNDED PRESCRIPTION CPAP @ 11 cm of water with humidification. Mask (per patient preference) optional chin strap (if indicated) , filters, tubing, humidifier and lifetime supplies. Dx. TAE 327.23 Cholecalciferol, Vitamin D3, 1,000 unit cap Take 1 capsule by mouth once daily. vitamin b complex (B-COMPLEX) ORAL Tab one tablet daily PHYSICAL EXAMINATION: VITAL SIGNS: BP 138/80 Pulse 60 Ht 6' 0 (1.83m) Wt 268 lb 11.2 oz (121.9kg) BMI 36.43 kg/(m2). Chest: Clear to auscultation. Trachea is midline. Air entry is equal. Cardiac: Regular rhythm. S1 and S2 are normal. PMI is nondisplaced. There is a 1/6 systolic ejection murmur.. Carotids are brisk without bruits. JVP is less than 10 cm. Abdomen: Soft and nontender. There are no pulsatile masses or bruits. No liver enlargement. Bowel sounds are active. Extremities: No edema. Pulses are intact and symmetrical. EKG shows sinus rhythm. There is incomplete right bundle branch block. Sinus rhythm has resumed, otherwise there is no significant change. Electronically Signed: Chito Mcclellan MD February 05, 2018 9:11 AM CC: MD Chito Dozier MD 02/05/2018 9:11 AM Signed LIFESTYLE CHANGE A healthy lifestyle is the most important component of your overall treatment plan. Please give serious thought to the following areas and commit to making manager terminal changes. EAT A WHOLE FOOD, PLANT BASED DIET The nutrition your body gets is more important than the medicine you take. What matters most is the overall way you eat. We encourage you to minimize the use of animal products (which include dairy and all meats except fatty fish) and use whole, unprocessed plant foods to provide your protein, vitamins and other nutrients. We have a lot of information to share with you on this topic. This is not a diet. It is a way of life that you will keep with you. EXERCISE REGULARLY It is not important to spend hours in the gym, lifting weights and perspiring heavily. A total of 2-3 hours per week of aerobic (causing you to be moderately short of breath) exercise is sufficient to improve your health. Talk to us before you begin a new exercise program, if you have heart disease or experience shortness of breath or chest pain. REDUCE STRESS Chronic emotional and physical stress leads to disease. Ways of reducing stress include meditation, visualization, prayer, yoga and other forms of relaxation therapy. Consistency is the guzman. Find a technique that works for you and do it every day. CULTIVATE RELATIONSHIPS Loneliness and isolation have a major negative impact on health. Seek out others who can love, care for and nurture you. Avoid hurtful relationships. MAINTAIN IDEAL BODY WEIGHT The best way to do this is to do all the things above. Our bodies naturally find the right weight if we keep moving and feed ourselves the right food. If your BMI is greater than 25, we strongly recommend a referral to a weight management program. Please speak to us or your family physician about available programs. AVOID NICOTINE IN ALL FORMS This includes all tobacco products, whether chewed, smoked, vaped, or rubbed on the skin. Smoking cessation programs, which can make use of tobacco substitutes, medications to suppress cravings and behavior management, are available. Please contact your family physician about programs in your area. Referring Provider: CHITO MCCLELLAN [[id number]] Allergies As of Date: 02/05/2018 (No Known Allergies) Date Reviewed: 02/05/2018 Reviewed by: Narcisa Capone MA - Fully Assessed Reason for Visit: Established Patient [175] Primary Visit Diagnosis:PAF (paroxysmal atrial fibrillation) (HCC) [I48.0] Other Visit Diagnosis:Essential hypertension, benign [I10] Order(s):ECG COMPLETE W INTERPRETATION [ECG01] Order #: [id number] FUTURE metoprolol tartrate, short acting, (LOPRESSOR) 50 mg [id number] mg daily for 5 days, then discontinueDisp: Rfl: losartan-hydrochlorothiazide (HYZAAR) 100-25 mg per tabletTake 1 tablet by mouth once daily.Disp: 90 tabletRfl: 3 Prescriptions as of 02/05/2018 Sig: METOPROLOL TARTRATE 50 MG TAB* 25 mg daily for 5 days, then * LOSARTAN 100 MG-HYDROCHLOROTH* Take 1 tablet by mouth once d* FLUTICASONE 250 MCG-SALMETERO* Inhale 1 Puff as instructed t* APIXABAN 5 MG TABLET Take 1 tablet by mouth twice * TRIAMCINOLONE ACETONIDE 0.025* Apply 1 application to affect* COMPOUNDED PRESCRIPTION CPAP @ 11 cm of water with hu* CHOLECALCIFEROL (VITAMIN D3) * Take 1 capsule by mouth once * * B-COMPLEX TABLET one tablet daily Problem List As Of Date 02/05/2018 Noted Resolved BENIGN HYPERTENSION [I10] INVALID FOR* Sleep disturbance, unspecified [G47.9] INVALID FOR*12/26/2017 STOMACH FUNCTION DIS NEC [K31.89, R10.13] INVALID FOR* Abdominal pain, generalized [R10.84] INVALID FOR*12/26/2017 Nausea alone [R11.0] INVALID FOR*12/26/2017 Anxiety [F41.9] INVALID FOR* Hypogonadism male [E29.1] INVALID FOR* TAE (obstructive sleep apnea) [G47.33] INVALID FOR* More... Elevated prostate specific antigen (PSA) [R97.2*INVALID FOR* Encounter for screening for malignant neoplasm *INVALID FOR* Attention deficit disorder [F98.8] INVALID FOR* PAF (paroxysmal atrial fibrillation) (HCC) [I48*INVALID FOR* Cough in adult [R05] INVALID FOR*12/26/2017 More... Uncomplicated asthma [J45.909] INVALID FOR* Dermatitis [L30.9] INVALID FOR* Other instructions from your clinician: LIFESTYLE CHANGE A healthy lifestyle is the most important component of your overall treatment plan. Please give serious thought to the following areas and commit to making senior living changes. EAT A WHOLE FOOD, PLANT BASED DIET The nutrition your body gets is more important than the medicine you take. What matters most is the overall way you eat. We encourage you to minimize the use of animal products (which include dairy and all meats except fatty fish) and use whole, unprocessed plant foods to provide your protein, vitamins and other nutrients. We have a lot of information to share with you on this topic. This is not a diet. It is a way of life that you will keep with you. EXERCISE REGULARLY It is not important to spend hours in the gym, lifting weights and perspiring heavily. A total of 2-3 hours per week of aerobic (causing you to be moderately short of breath) exercise is sufficient to improve your health. Talk to us before you begin a new exercise program, if you have heart disease or experience shortness of breath or chest pain. REDUCE STRESS Chronic emotional and physical stress leads to disease. Ways of reducing stress include meditation, visualization, prayer, yoga and other forms of relaxation therapy. Consistency is the guzman. Find a technique that works for you and do it every day. CULTIVATE RELATIONSHIPS Loneliness and isolation have a major negative impact on health. Seek out others who can love, care for and nurture you. Avoid hurtful relationships. MAINTAIN IDEAL BODY WEIGHT The best way to do this is to do all the things above. Our bodies naturally find the right weight if we keep moving and feed ourselves the right food. If your BMI is greater than 25, we strongly recommend a referral to a weight management program. Please speak to us or your family physician about available programs. AVOID NICOTINE IN ALL FORMS This includes all tobacco products, whether chewed, smoked, vaped, or rubbed on the skin. Smoking cessation programs, which can make use of tobacco substitutes, medications to suppress cravings and behavior management, are available. Please contact your family physician about programs in your area. Prescriptions ordered this encounter Disp Refills Start End METOPROLOL TARTRATE 50 MG TABLET 02/05/2018 Class: Med Update Si mg daily for 5 days, then discontinue LOSARTAN 100 MG-HYDROCHLOROTHIAZIDE * 90 t* 3 02/05/2018 Route: ORAL Sig: Take 1 tablet by mouth once daily. Medications Discontinued During This Encounter metoprolol tartrate, short acting, (* 30 t* 6 11/22/2017 02/05/2018 Route: ORAL Sig: Take 0.5 tablets by mouth twice daily. Disc: Reason for discontinue is not on file. losartan-hydrochlorothiazide (HYZAAR* 30 t* 2 11/14/2017 02/05/2018 Route: ORAL Sig: Take 1 tablet by mouth once daily. Disc: Reason for discontinue is not on file. Follow-up and Disposition History Recorded Encounter Status:Closed by CHITO MCCLELLAN MD on 02/05/18 OPERATIVE REPORT Observed: 01/30/2018 Status: F Source: [place] 5:[address] [facility] REPOSITORY [facility] Medical Records Department [address] [place] [address] Operative Report 01/29/18 1448 MR#: [id number] Acct: [id number] Name: SILVIANO RANGEL Rep #: [id number] : 1950 67 From: Shade Sutton MD PCP: Radha Kamara MD Status: DEP [facility] Y Location: [facility] Problem List (1) Atrial fibrillation Status: Acute Qualifiers: Atrial fibrillation type: chronic Qualified Code(s): I48.2 - Chronic atrial fibrillation (2) Obesity (BMI 30-39.9) Status: Acute (3) Prostate cancer Status: Acute Operative Report Date of Procedure: 01/29/18 - Conscious sedation CONSCIOUS SEDATION REPORT BRIEF HISTORY OF PRESENT ILLNESS: The patient is a 67-year-old male who presented to [facility] for an elective outpatient cardioversion due to underlying atrial fibrillation. The patient reports no PO intake since midnight. The patient does have a history of obstructive sleep apnea. The patient reports a history of smoking, but denies COPD. The patient denies any recent constitutional symptoms such as fevers, chills, nausea or vomiting. The patient denies previous anesthetic complications. Patient's last known ejection fraction of 55%. PHYSICAL EXAMINATION: VITAL SIGNS: Reviewed and were acceptable. GENERAL: The patient is an obese male, in no apparent distress, speaking in full sentences. HEENT: Normocephalic, atraumatic. Mucous membranes are moist and pink. Good mouth opening noted. Trachea is midline. Good neck mobility. MP IV CHEST: S1, S2 irregularly irregular. No murmurs, rubs or gallops were noted. LUNGS: Clear to auscultation bilaterally without appreciable wheezes, rales or rhonchi. ABDOMEN: Soft, nontender, nondistended. Positive bowel sounds. EXTREMITIES: There is no clubbing, cyanosis or edema. ASA Class: II DESCRIPTION OF PROCEDURE: After confirmation of informed consent, the patient's anesthesia plan was reviewed in detail. Propofol was chosen. Risks and benefits were reviewed and the patient agreed to proceed. At 12:28 PM, the patient was given 40 mg of propofol. The patient required a total of 60 mg of propofol throughout the procedure to achieve appropriate sedation. The patient achieved an appropriate level of sedation and received 1 attempt s synchronized cardioversion, at [address] Torres at the bedside. This was successful in achieving normal sinus rhythm. The patient was monitored until 12:34 PM, at which time the patient reached their baseline mental status and function. The patient tolerated the procedure well. COMPLICATIONS: None ESTIMATED BLOOD LOSS: None RECOMMENDATIONS: Okay to recover in usual fashion. Code Visit 9xxxx: Other Procedure See Report - [id number] 01/30/18 0523 <Electronically signed by Shade Sutton MD> Date Shade Sutton MD CC: Shade Sutton MD; Radha Kamara MD; Tommy Torres MD Signed OPERATIVE REPORT Observed: 01/29/2018 Status: F Source: [place] 12:58 PM [facility] Medical Records Department [address] [place] [id number] Operative Report 01/29/18 1256 MR#: [id number] Acct: [id number] Name: SILVIANO RANGEL Rep #: [id number] : 1950 67 From: Tommy Torres MD PCP: Anh CROSS,Radha Status: REG [facility] Y Location: [facility] Problem List (1) Atrial fibrillation Status: Acute Operative Report Date of Procedure: 01/29/18 Procedure: Synchronized biphasic DC cardioversion Indications: Atrial fibrillation Consent: Per the patient Premedications: Per Dr. Shade Sutton pulmonology and critical care medicine with propofol 60 mg IV push total Procedure: Synchronized biphasic DC cardioversion: 200 J x1: Result: Sinus rhythm with PACs Complications: No apparent complications This note was generated with [employer] software. It may contain incorrect words, spelling, and punctuation that were not noted in checking the note before signing. 01/29/18 1258 <Electronically signed by Tommy Torres MD> Date Tommy Torres MD CC: Chito Mcclellan MD; Radha Kamara MD; Tommy Torres MD Signed PROGRESS Observed: 01/25/2018 Status: COMPLETED Source: [place] 4:52 PM [facility] REPOSITORY O ID: [id number] Author: Nallely Sheridan Ma Service: (none) Author Type: (none) Type: Progress Notes Filed: 01/25/2018 5:12 PM Note Text: 67 year old male here for INACTIVATED INFLUENZA VACCINE. [id number] Season Patient is identified by name and date of : Yes [] CONTRAINDICATIONS color enhanced section Age less than 6 months? No Allergy to eggs, chicken, chicken feathers, or chicken dander? No Allergy to thimerosal (a preservative) or formaldehyde, gelatin? No History of severe reaction to any vaccine component or a previous dose of influenza vaccination? No History of Guillain-[place] Syndrome within 6 weeks after a previous influenza vaccine? No Patient is not moderately or severely ill? No Current temperature greater or equal to 100.4F? No History of Bone Marrow Transplant prior 6 months or solid organ transplant in the past 3 months ? No History of fainting after a prior injection or medical procedure? No- ? If patient has fainted in the past, the CDC recommends sitting or lying down for 15 minutes after the vaccination. [] VERIFICATION color enhanced section Was the answer Yes for any of the above contraindications? No contraindications present. Acceptable to proceed with vaccine. Patient/guardian agrees the above answers are true to the best of their knowledge? Yes Flu vaccine information sheet given? Yes See immunization activity in [facility] for details of immunizations adminstered today. Patient age: [age] year old For The 7284-9190 Flu Season 6-35 months old: Fluzone 0.25 ml - IM (Preservative Free) 3 years of age: Fluzone 0.5 ml - IM (Preservative Free) 3 years and older: Fluzone 0.5 ml- IM-(with Preservatives) 65+ years old: 2-49 years old Fluzone High-Dose 0.5 ml - IM (Preservative Free) FLUMIST- intranasal REMEMBER: If patient is less than 9 years of age and this is the first vaccine of Influenza to be received in any flu season, they should receive a second dose in one months time. CNNURSE Observed: 01/25/2018 Status: COMPLETED Source: [place] 3:[address] [facility] REPOSITORY Nurse Visit (FAMPWS) SILVIANO RANGEL ([id number]) 1950 M Date Time Provider Department 01/25/18 3:40 PM [facility] During your visit today, we recorded the following information about you: Nallely Sheridan Ma 01/25/2018 5:12 PM Signed 67 year old male here for INACTIVATED INFLUENZA VACCINE. 4119-0190 Season Patient is identified by name and date of : Yes [] CONTRAINDICATIONS color enhanced section Age less than 6 months? No Allergy to eggs, chicken, chicken feathers, or chicken dander? No Allergy to thimerosal (a preservative) or formaldehyde, gelatin? No History of severe reaction to any vaccine component or a previous dose of influenza vaccination? No History of Guillain-[place] Syndrome within 6 weeks after a previous influenza vaccine? No Patient is not moderately or severely ill? No Current temperature greater or equal to 100.4F? No History of Bone Marrow Transplant prior 6 months or solid organ transplant in the past 3 months ? No History of fainting after a prior injection or medical procedure? No- ? If patient has fainted in the past, the CDC recommends sitting or lying down for 15 minutes after the vaccination. [] VERIFICATION color enhanced section Was the answer Yes for any of the above contraindications? No contraindications present. Acceptable to proceed with vaccine. Patient/guardian agrees the above answers are true to the best of their knowledge? Yes Flu vaccine information sheet given? Yes See immunization activity in [facility] for details of immunizations adminstered today. Patient age: [age] year old For The 6346-6631 Flu Season 6-35 months old: Fluzone 0.25 ml - IM (Preservative Free) 3 years of age: Fluzone 0.5 ml - IM (Preservative Free) 3 years and older: Fluzone 0.5 ml- IM-(with Preservatives) 65+ years old: 2-49 years old Fluzone High-Dose 0.5 ml - IM (Preservative Free) FLUMIST- intranasal REMEMBER: If patient is less than 9 years of age and this is the first vaccine of Influenza to be received in any flu season, they should receive a second dose in one months time. Referring Provider: RADHA KAMARA [[id number]] Allergies As of Date: 01/25/2018 (No Known Allergies) Date Reviewed: 01/17/2018 Reviewed by: Delvin (Rn) Michele - Fully Assessed Reason for Visit: Imm/Inj [58] Cmt: Flu Vaccine Primary Visit Diagnosis:Need for vaccination [Z23] Order(s):INFLUENZA VACCINE QUADRIVALENT AGE 3 YRS PLUS + IM [[id number]] Order #: [id number] Prescriptions as of 01/25/2018 Sig: FLUTICASONE 250 MCG-SALMETERO* Inhale 1 Puff as instructed t* METOPROLOL TARTRATE 50 MG TAB* Take 0.5 tablets by mouth twi* APIXABAN 5 MG TABLET Take 1 tablet by mouth twice * LOSARTAN 100 MG-HYDROCHLOROTH* Take 1 tablet by mouth once d* TRIAMCINOLONE ACETONIDE 0.025* Apply 1 application to affect* COMPOUNDED PRESCRIPTION CPAP @ 11 cm of water with hu* CHOLECALCIFEROL (VITAMIN D3) * Take 1 capsule by mouth once * * B-COMPLEX TABLET one tablet daily Problem List As Of Date 01/25/2018 Noted Resolved BENIGN HYPERTENSION [I10] INVALID FOR* Sleep disturbance, unspecified [G47.9] INVALID FOR*12/26/2017 STOMACH FUNCTION DIS NEC [K31.89, R10.13] INVALID FOR* Abdominal pain, generalized [R10.84] INVALID FOR*12/26/2017 Nausea alone [R11.0] INVALID FOR*12/26/2017 Anxiety [F41.9] INVALID FOR* Hypogonadism male [E29.1] INVALID FOR* TAE (obstructive sleep apnea) [G47.33] INVALID FOR* More... Elevated prostate specific antigen (PSA) [R97.2*INVALID FOR* Encounter for screening for malignant neoplasm *INVALID FOR* Attention deficit disorder [F98.8] INVALID FOR* PAF (paroxysmal atrial fibrillation) (HCC) [I48*INVALID FOR* Cough in adult [R05] INVALID FOR*12/26/2017 More... Uncomplicated asthma [J45.909] INVALID FOR* Dermatitis [L30.9] INVALID FOR* Follow-up and Disposition History Recorded Encounter Status:Closed by NALLELY SHERIDAN MA on 01/25/18 PROGRESS Observed: 01/18/2018 Status: COMPLETED Source: [place] 4:[address] [facility] REPOSITORY HNO ID: [id number] Author: Chito Mcclellan Service: (none) Author Type: Physician Type: Progress Notes Filed: 01/18/2018 4:42 PM Note Text: EKG continues to show atrial fibrillation. Please fax to [facility]. Chito Mcclellan MD [facility] Observed: 01/18/2018 Status: COMPLETED Source: [place] 3:[address] [facility] REPOSITORY Nurse Visit (CAWSTR) JUAN CARLOSSILVIANO Hand ([id number]) 1950 M Date Time Provider Department 01/18/18 3:45 PM NURSE CARD ADMIN COUNTS INCLUDE [facility] BEDS AT THE [facility] W[facility] CAWSTR During your visit today, we recorded the following information about you: Delvin Gar RN 01/18/2018 3:51 PM Signed EKG done. CARLIE Kincaid MD 01/18/2018 4:42 PM Signed EKG continues to show atrial fibrillation. Please fax to [facility]. Chito Mcclellan MD Referring Provider: CHITO MCCLELLAN [[id number]] Allergies As of Date: 01/18/2018 (No Known Allergies) Date Reviewed: 01/17/2018 Reviewed by: Delvin (Carlie) Michele - Fully Assessed Reason for Visit: EKG [793] Primary Visit Diagnosis:PAF (paroxysmal atrial fibrillation) ([facility]) [I48.0] Order(s):ECG COMPLETE W INTERPRETATION [ECG01] Order #: [id number] FUTURE Prescriptions as of 01/18/2018 Sig: FLUTICASONE 250 MCG-SALMETERO* Inhale 1 Puff as instructed t* METOPROLOL TARTRATE 50 MG TAB* Take 0.5 tablets by mouth twi* APIXABAN 5 MG TABLET Take 1 tablet by mouth twice * LOSARTAN 100 MG-HYDROCHLOROTH* Take 1 tablet by mouth once d* TRIAMCINOLONE ACETONIDE 0.025* Apply 1 application to affect* COMPOUNDED PRESCRIPTION CPAP @ 11 cm of water with hu* CHOLECALCIFEROL (VITAMIN D3) * Take 1 capsule by mouth once * * B-COMPLEX TABLET one tablet daily Problem List As Of Date 01/18/2018 Noted Resolved BENIGN HYPERTENSION [I10] INVALID FOR* Sleep disturbance, unspecified [G47.9] INVALID FOR*12/26/2017 STOMACH FUNCTION DIS NEC [K31.89, R10.13] INVALID FOR* Abdominal pain, generalized [R10.84] INVALID FOR*12/26/2017 Nausea alone [R11.0] INVALID FOR*12/26/2017 Anxiety [F41.9] INVALID FOR* Hypogonadism male [E29.1] INVALID FOR* TAE (obstructive sleep apnea) [G47.33] INVALID FOR* More... Elevated prostate specific antigen (PSA) [R97.2*INVALID FOR* Encounter for screening for malignant neoplasm *INVALID FOR* Attention deficit disorder [F98.8] INVALID FOR* PAF (paroxysmal atrial fibrillation) (HCC) [I48*INVALID FOR* Cough in adult [R05] INVALID FOR*12/26/2017 More... Uncomplicated asthma [J45.909] INVALID FOR* Dermatitis [L30.9] INVALID FOR* Visit Notes: >> Delvin (Rn) Michele Schroeder Jan 18, 2018 3:44 PM Status: Signed EKG done. Delvin Gar RN Encounter Status:Closed by DELVIN GAR RN on 01/18/18 EKG1 Observed: 01/18/2018 Status: F Source: [place] 3:[address] [facility] REPOSITORY NAME : SILVIANO RANGEL PID : [id number] : 1950 Gender : Male Race : ORD : Procedure Date : Jan 18 2018 15:18:12 Edit Date : Jan 19 2018 07:36:31 Diagnosis:ATRIAL FIBRILLATION WITH RAPID VENTRICULAR RESPONSE INCOMPLETE RIGHT BUNDLE BRANCH BLOCK NON-SPECIFIC ST AND T WAVE CHANGES ABNORMAL ECG NO SIGNIFICANT CHANGE FROM PREVIOUS ECG Confirmed by CHITO MCCLELLAN MD ([id number]) on 01/19/2018 7:36:27 AM Ventricular Rate : 115 BPM Atrial Rate : 136 BPM QRS Duration : 104 ms Q-T Interval : 332 ms QTC Calculation(Bezet) : 459 ms R [place] : 60 degrees T [place] : 9 degrees Test Reason : Location : 136 : [place] Overread By : CHITO MCCLELLAN MD Edited By : CHITO MCCLELLAN MD Referred By : CHITO MCCLELLAN Acquired by : KS, CBC Collected: 01/18/2018 Status: F Source: [place] 8:50 AM [facility] REPOSITORY TYPE CODE TESTS RESULT OUT OF REFERENCE UNITS RANGE LAB WBC 3.70-11.00 k/uL WBC 7.49 LAB RBC 4.20-6.00 m/uL RBC 5.28 LAB HGB 13.0-17.0 g/dL Hemoglobin 16.0 LAB HCT 39.0-51.0 % High Hematocrit 51.5 LAB MCV 80.0-100.0 fL MCV 97.5 LAB MCH 26.0-34.0 pG MCH 30.3 LAB MCHC 30.5-36.0 g/dL MCHC 31.1 LAB RDWCV 11.5-15.0 % RDW-CV 13.0 LAB PLTCT 150-400 k/uL Platelet Count 185 LAB MPV 9.0-12.7 fL MPV 10.5 LAB ABSNUC <0.01 k/uL Absolute nRBC <0.01 Performed By: #### CBC, BMP, MG1, PSA #### [facility] [address] [place], [place] [address] BASIC METABOLIC PANL Collected: 01/18/2018 Status: F Source: [place] 8:50 AM [facility] REPOSITORY TYPE CODE TESTS RESULT OUT OF REFERENCE UNITS RANGE LAB GLU 74-99 mg/dL High Glucose 109 Result Comment: The [place] Diabetes Association (ADA) provides guidance for cutoff values for fasting glucose and random glucose. The ADA defines fasting as no caloric intake for at least 8 hours. Fas ting plasma glucose results between 100 to 125 mg/dL indicate increased risk for diabetes (prediabetes). Fasting plasma glucose results greater than or equal to 126 mg/dL meet the criteria for diagnosis of diabetes. In the absence of unequivocal hyperglycemia, results should be confirmed by repeat testing. In a patient with classic symptoms of hyperglycemia or hyperglycemic crisis, random plasma glucose results greater than or equal to 200 mg/dL meet the criteria for diagnosis of diabetes. Reference: Standards of Medical Care in Diabetes 2016, [place] Diabetes Association. Diabetes Care. 2016.39(Suppl 1). LAB BUN 9-24 mg/dL BUN 18 LAB CRET 0.73-1.22 mg/dL Creatinine 1.08 LAB NA 136-144 mmol/L Sodium 141 LAB K 3.7-5.1 mmol/L Potassium 4.4 LAB CL 97-105 mmol/L Chloride 102 LAB CO2 22-30 mmol/L CO2 25 LAB AGAP 9-18 mmol/L Anion Gap 14 LAB CA 8.5-10.2 mg/dL Calcium, Total 9.0 LAB GFRAA eGFR- Amer. >60 LAB GFRNAA . eGFR-All Other Races >60 Result Comment: eGFR (Estimated GFR) Units of measure: mL/min/1.73 meters squared eGFR is derived from the reexpressed MDRD Study equation using the following parameters: serum creatinine, age, gender and race. The creatinine assay has been calibrated to be traceable to IDMS. An eGFR <60 mL/min/1.73m2 for >3 months is consistent with chronic kidney disease. Refer to KDOQI guidelines for clinical interpretation. In patients with unstable renal function, e.g. those with acute kidney injury, the eGFR may not accurately reflect actual GFR. Performed By: #### CBC, BMP, MG1, PSA #### [facility] [address], [place] [id number] MAGNESIUM Collected: 01/18/2018 Status: F Source: [place] 8:[address] [facility] REPOSITORY TYPE CODE TESTS RESULT OUT OF REFERENCE UNITS RANGE LAB MG 1.7-2.3 mg/dL Magnesium 2.1 Performed By: #### CBC, BMP, MG1, PSA #### [facility] [address], [place] [id number] PSA, DIAGNOSTIC Collected: 01/18/2018 Status: F Source: [place] 8:[address] [facility] REPOSITORY TYPE CODE TESTS RESULT OUT OF REFERENCE UNITS RANGE LAB PSA 0.00-2.59 ng/mL PSA, Diagnostic <0.03 Result Comment: Total PSA test methodology used is the Electrochemiluminescence Immunoassay. For an individual patient, the significance of a PSA level should be interpreted in a broad clinical context, including age, race, family history, digital rectal exam, prostate size, results of prior te sting (prostate biopsy, free PSA, PCA3), and use of 5-alpha reductase inhibitors. Considering the high incidence of asymptomatic cancer in the general population that may not pose an ultimate risk to a patient, the decision to recommend urological evaluation or prostate biopsy should be individualized after consideration of all these factors. REFERENCE: Lizzette Lerma M.D., M.P.H., Jj Harding M.D., Ph.D., Amaury Salas M.D., Janet Godinez, M.P.H., Disha Rodgers Sc.D. Effect of Verification Bias on Screening for Prostate Cancer by Measurement of Prostatic Specific Antigen. N Engl J Med 2003,349:335-42. Performed By: #### CBC, BMP, MG1, PSA #### [facility] [address] [place] [id number] PROGRESS Observed: 01/17/2018 Status: COMPLETED Source: [place] 11:23 AM [facility] [place] REPOSITORY HNO ID: [id number] Author: Chito Mcclellan Service: (none) Author Type: Physician Type: Progress Notes Filed: 01/17/2018 6:16 PM Note Text: PERTINENT CARDIAC HISTORY PAF - C-V 2 HTN HL TAE - CPAP Dilated aortic root Aortic insufficiency - mild ADHERENCE TO GUIDELINES LUCY-I or ARB for HF with prior LVEF<40 (NQF 0081) - N/A ASA or Plavix for ASHD (NQF 0067) - N/A Beta shad for ASHD with prior DE or prior LVEF<40 (NQF 0070) - N/A Beta shad for HF with prior LVEF<40 (NQF 0083) - N/A LUCY-I or ARB for ASHD with DM or prior LVEF<40 (NQF 0066) - N/A Statin therapy for ASHD or FHL or DM - N/A BMI documented and plan if >25 (NQF 0421) - lifestyle recommendation form Tobacco use screening and referral (NQF 0028) - lifestyle recommendation form Recommendation for whole food, plant based diet - lifestyle recommendation form CLINICAL IMPRESSION/PLAN: Silviano Rangel has been on anticoagulation for over one month and has been compliant. He would like to proceed with cardioversion. We discussed options of initiating an antiarrhythmic drug. He is now on good quality CPAP and would like to avoid any additional medications if possible. He will be referred to [facility] for cardioversion. He was given teaching information. We discussed risks and benefits in brief. Laboratory studies, EKG will be done. In addition, we will do a PSA as he has an appointment with his urologist next week and will need that information as well. He would like to consider resuming Adderall in the future. We have discussed this in the past as being a possible contributor to his atrial fibrillation. We will discuss this further. I will see him on it to be arranged basis, but likely one week after his cardioversion. Written and verbal health teaching given to patient, patient verbalizes understanding and agrees with treatment plan. DIAGNOSIS FOR VISIT: PAF Hypertension HISTORY OF PRESENT ILLNESS Silviano Rangel returns for follow-up of his PAF. He reports that his exercise tolerance is better. His rate is better control. He's had no chest discomfort. He is tolerating anticoagulation well. He wishes to consider cardioversion. He has been under a lot of stress with his 's illness. He's had no edema, orthopnea, syncope, TIAs, amaurosis or claudication. ALLERGIES: ALLERGIES No Known Allergies CURRENT OUTPATIENT MEDICATIONS: fluticasone-salmeterol (ADVAIR DISKUS) 250-50 mcg/dose dsdv Inhale 1 Puff as instructed twice daily. Rinse and gargle mouth with water after each use. metoprolol tartrate, short acting, (LOPRESSOR) 50 mg tablet Take 0.5 tablets by mouth twice daily. apixaban (ELIQUIS) 5 mg tab(s) Take 1 tablet by mouth twice daily. losartan-hydrochlorothiazide (HYZAAR) 100-25 mg per tablet Take 1 tablet by mouth once daily. triamcinolone (KENALOG) 0.025 % cream Apply 1 application to affected area twice daily. COMPOUNDED PRESCRIPTION CPAP @ 11 cm of water with humidification. Mask (per patient preference) optional chin strap (if indicated) , filters, tubing, humidifier and lifetime supplies. Dx. TAE 327.23 Cholecalciferol, Vitamin D3, 1,000 unit cap Take 1 capsule by mouth once daily. vitamin b complex (B-COMPLEX) ORAL Tab one tablet daily Family history, past medical history, surgical history and social history are unchanged from prior dictation. Review of systems is otherwise unremarkable. PHYSICAL EXAMINATION: VITAL SIGNS: BP 136/95 Pulse 92 Wt 269 lb (122.0kg) Chest: Clear to auscultation. Trachea is midline. Air entry is equal. Cardiac: Irregularly irregular rhythm. S1 and S2 are normal. PMI is nondisplaced. There is a 1/6 systolic ejection murmur. Carotids are brisk without bruits. JVP is less than 10 cm. Abdomen: Soft and nontender. There are no pulsatile masses or bruits. No liver enlargement. Bowel sounds are active. Extremities: No edema. Pulses are diminished in the right arm, but otherwise full. There was no blood pressure difference between arms. Recent TSH and magnesium were normal. Stress test showed no evidence of ischemia. Electronically Signed: Chito Mcclellan MD January 17, 2018 11:23 AM CC: Radha Kamara MD CNOV Observed: 01/17/2018 Status: COMPLETED Source: [place] 10:[address] [facility] REPOSITORY Office Visit (CAWSTR) SILVIANO RANGEL ([id number]) 1950 Date Time Provider Department 01/17/18 10:15 AM CHITO MCCLELLAN CAWSTR During your visit today, we recorded the following information about you: Pulse Blood pressure Weight 92/minute 136/95 122 kg Chito Mcclellan MD 01/17/2018 6:16 PM Signed PERTINENT CARDIAC HISTORY PAF - C-V 2 HTN HL TAE - CPAP Dilated aortic root Aortic insufficiency - mild ADHERENCE TO GUIDELINES LUCY-I or ARB for HF with prior LVEF<40 (NQF 0081) - N/A ASA or Plavix for ASHD (NQF 0067) - N/A Beta shad for ASHD with prior DE or prior LVEF<40 (NQF 0070) - N/A Beta shad for HF with prior LVEF<40 (NQF 0083) - N/A LUCY-I or ARB for ASHD with DM or prior LVEF<40 (NQF 0066) - N/A Statin therapy for ASHD or FHL or DM - N/A BMI documented and plan if >25 (NQF 0421) - lifestyle recommendation form Tobacco use screening and referral (NQF 0028) - lifestyle recommendation form Recommendation for whole food, plant based diet - lifestyle recommendation form CLINICAL IMPRESSION/PLAN: Silviano Rangel has been on anticoagulation for over one month and has been compliant. He would like to proceed with cardioversion. We discussed options of initiating an antiarrhythmic drug. He is now on good quality CPAP and would like to avoid any additional medications if possible. He will be referred to [facility] for cardioversion. He was given teaching information. We discussed risks and benefits in brief. Laboratory studies, EKG will be done. In addition, we will do a PSA as he has an appointment with his urologist next week and will need that information as well. He would like to consider resuming Adderall in the future. We have discussed this in the past as being a possible contributor to his atrial fibrillation. We will discuss this further. I will see him on it to be arranged basis, but likely one week after his cardioversion. Written and verbal health teaching given to patient, patient verbalizes understanding and agrees with treatment plan. DIAGNOSIS FOR VISIT: PAF Hypertension HISTORY OF PRESENT ILLNESS Silviano Rangel returns for follow-up of his PAF. He reports that his exercise tolerance is better. His rate is better control. He's had no chest discomfort. He is tolerating anticoagulation well. He wishes to consider cardioversion. He has been under a lot of stress with his 's illness. He's had no edema, orthopnea, syncope, TIAs, amaurosis or claudication. ALLERGIES: ALLERGIES No Known Allergies CURRENT OUTPATIENT MEDICATIONS: fluticasone-salmeterol (ADVAIR DISKUS) 250-50 mcg/dose dsdv Inhale 1 Puff as instructed twice daily. Rinse and gargle mouth with water after each use. metoprolol tartrate, short acting, (LOPRESSOR) 50 mg tablet Take 0.5 tablets by mouth twice daily. apixaban (ELIQUIS) 5 mg tab(s) Take 1 tablet by mouth twice daily. losartan-hydrochlorothiazide (HYZAAR) 100-25 mg per tablet Take 1 tablet by mouth once daily. triamcinolone (KENALOG) 0.025 % cream Apply 1 application to affected area twice daily. COMPOUNDED PRESCRIPTION CPAP @ 11 cm of water with humidification. Mask (per patient preference) optional chin strap (if indicated) , filters, tubing, humidifier and lifetime supplies. Dx. TAE 327.23 Cholecalciferol, Vitamin D3, 1,000 unit cap Take 1 capsule by mouth once daily. vitamin b complex (B-COMPLEX) ORAL Tab one tablet daily Family history, past medical history, surgical history and social history are unchanged from prior dictation. Review of systems is otherwise unremarkable. PHYSICAL EXAMINATION: VITAL SIGNS: BP 136/95 Pulse 92 Wt 269 lb (122.0kg) Chest: Clear to auscultation. Trachea is midline. Air entry is equal. Cardiac: Irregularly irregular rhythm. S1 and S2 are normal. PMI is nondisplaced. There is a 1/6 systolic ejection murmur. Carotids are brisk without bruits. JVP is less than 10 cm. Abdomen: Soft and nontender. There are no pulsatile masses or bruits. No liver enlargement. Bowel sounds are active. Extremities: No edema. Pulses are diminished in the right arm, but otherwise full. There was no blood pressure difference between arms. Recent TSH and magnesium were normal. Stress test showed no evidence of ischemia. Electronically Signed: Chito Mcclellan MD January 17, 2018 11:23 AM CC: MD Chito Dozier MD 01/17/2018 11:23 AM Signed LIFESTYLE CHANGE A healthy lifestyle is the most important component of your overall treatment plan. Please give serious thought to the following areas and commit to making manager terminal changes. EAT A WHOLE FOOD, PLANT BASED DIET The nutrition your body gets is more important than the medicine you take. What matters most is the overall way you eat. We encourage you to minimize the use of animal products (which include dairy and all meats except fatty fish) and use whole, unprocessed plant foods to provide your protein, vitamins and other nutrients. We have a lot of information to share with you on this topic. This is not a diet. It is a way of life that you will keep with you. EXERCISE REGULARLY It is not important to spend hours in the gym, lifting weights and perspiring heavily. A total of 2-3 hours per week of aerobic (causing you to be moderately short of breath) exercise is sufficient to improve your health. Talk to us before you begin a new exercise program, if you have heart disease or experience shortness of breath or chest pain. REDUCE STRESS Chronic emotional and physical stress leads to disease. Ways of reducing stress include meditation, visualization, prayer, yoga and other forms of relaxation therapy. Consistency is the guzman. Find a technique that works for you and do it every day. CULTIVATE RELATIONSHIPS Loneliness and isolation have a major negative impact on health. Seek out others who can love, care for and nurture you. Avoid hurtful relationships. MAINTAIN IDEAL BODY WEIGHT The best way to do this is to do all the things above. Our bodies naturally find the right weight if we keep moving and feed ourselves the right food. If your BMI is greater than 25, we strongly recommend a referral to a weight management program. Please speak to us or your family physician about available programs. AVOID NICOTINE IN ALL FORMS This includes all tobacco products, whether chewed, smoked, vaped, or rubbed on the skin. Smoking cessation programs, which can make use of tobacco substitutes, medications to suppress cravings and behavior management, are available. Please contact your family physician about programs in your area. Referring Provider: CHITO MCCLELLAN [[id number]] Allergies As of Date: 01/17/2018 (No Known Allergies) Date Reviewed: 01/17/2018 Reviewed by: Delvin (Rn) Michele - Fully Assessed Reason for Visit: Established Patient [175] Cmt: 1 month follow-up PAF/HTN Primary Visit Diagnosis:PAF (paroxysmal atrial fibrillation) (HCC) [I48.0] Other Visit Diagnosis:Essential hypertension [I10] Order(s):CBC [SQCBC] Order #: [id number] FUTURE BASIC METABOLIC PNL [SQBMP] Order #: [id number] FUTURE MAGNESIUM BLD [SQMG1] Order #: [id number] FUTURE ECG COMPLETE W INTERPRETATION [ECG01] Order #: [id number] FUTURE PSA/PROSTSPECAG DIAG [SQPSA] Order #: [id number] FUTURE Prescriptions as of 01/17/2018 Sig: FLUTICASONE 250 MCG-SALMETERO* Inhale 1 Puff as instructed t* METOPROLOL TARTRATE 50 MG TAB* Take 0.5 tablets by mouth twi* APIXABAN 5 MG TABLET Take 1 tablet by mouth twice * LOSARTAN 100 MG-HYDROCHLOROTH* Take 1 tablet by mouth once d* TRIAMCINOLONE ACETONIDE 0.025* Apply 1 application to affect* COMPOUNDED PRESCRIPTION CPAP @ 11 cm of water with hu* CHOLECALCIFEROL (VITAMIN D3) * Take 1 capsule by mouth once * * B-COMPLEX TABLET one tablet daily Problem List As Of Date 01/17/2018 Noted Resolved BENIGN HYPERTENSION [I10] INVALID FOR* Sleep disturbance, unspecified [G47.9] INVALID FOR*12/26/2017 STOMACH FUNCTION DIS NEC [K31.89, R10.13] INVALID FOR* Abdominal pain, generalized [R10.84] INVALID FOR*12/26/2017 Nausea alone [R11.0] INVALID FOR*12/26/2017 Anxiety [F41.9] INVALID FOR* Hypogonadism male [E29.1] INVALID FOR* TAE (obstructive sleep apnea) [G47.33] INVALID FOR* More... Elevated prostate specific antigen (PSA) [R97.2*INVALID FOR* Encounter for screening for malignant neoplasm *INVALID FOR* Attention deficit disorder [F98.8] INVALID FOR* PAF (paroxysmal atrial fibrillation) (HCC) [I48*INVALID FOR* Cough in adult [R05] INVALID FOR*12/26/2017 More... Uncomplicated asthma [J45.909] INVALID FOR* Dermatitis [L30.9] INVALID FOR* Other instructions from your clinician: LIFESTYLE CHANGE A healthy lifestyle is the most important component of your overall treatment plan. Please give serious thought to the following areas and commit to making senior living changes. EAT A WHOLE FOOD, PLANT BASED DIET The nutrition your body gets is more important than the medicine you take. What matters most is the overall way you eat. We encourage you to minimize the use of animal products (which include dairy and all meats except fatty fish) and use whole, unprocessed plant foods to provide your protein, vitamins and other nutrients. We have a lot of information to share with you on this topic. This is not a diet. It is a way of life that you will keep with you. EXERCISE REGULARLY It is not important to spend hours in the gym, lifting weights and perspiring heavily. A total of 2-3 hours per week of aerobic (causing you to be moderately short of breath) exercise is sufficient to improve your health. Talk to us before you begin a new exercise program, if you have heart disease or experience shortness of breath or chest pain. REDUCE STRESS Chronic emotional and physical stress leads to disease. Ways of reducing stress include meditation, visualization, prayer, yoga and other forms of relaxation therapy. Consistency is the guzman. Find a technique that works for you and do it every day. CULTIVATE RELATIONSHIPS Loneliness and isolation have a major negative impact on health. Seek out others who can love, care for and nurture you. Avoid hurtful relationships. MAINTAIN IDEAL BODY WEIGHT The best way to do this is to do all the things above. Our bodies naturally find the right weight if we keep moving and feed ourselves the right food. If your BMI is greater than 25, we strongly recommend a referral to a weight management program. Please speak to us or your family physician about available programs. AVOID NICOTINE IN ALL FORMS This includes all tobacco products, whether chewed, smoked, vaped, or rubbed on the skin. Smoking cessation programs, which can make use of tobacco substitutes, medications to suppress cravings and behavior management, are available. Please contact your family physician about programs in your area. Encounter Status:Closed by CHITO MCCLELLAN MD on 01/17/18 CNOV Observed: 12/26/2017 Status: COMPLETED Source: [place] 8:[address] [facility] REPOSITORY [facility] SILVIANO RANGEL ([id number]) 1950 M Date Time Provider Department 12/26/17 8:20 AM [facility] During your visit today, we recorded the following information about you: Pulse Respiration Blood pressure Weight 84/minute 16/minute 124/88 117.8 kg Radha Kamara MD 12/26/2017 9:20 AM Signed Chief Complaint Patient presents with: F/U 1 month: HTN and Afib HPI Silviano Rangel is a 67 year old male who presents here today for a 1 mo f/u. Pt here today to f/u on his BP. HTN - Followed up with Dr. Mcclellan who has switched his BP regimen and asked pt to check his BP 2-3 per day. Denies chest pain or dizziness. Admits to sob which Pulmonary believes could be due to afib. BP ranging from 121/78-144/94. This am BP was 138/92 before medications. Afib - Switched recently to Eliquis 5 mg 1 tab po bid, due to being more cost effective. Will discuss with Dr Mcclellan other options for treatment. Normal stress test. Uses kenalog cream prn for recurring rash on right calf and buttock. Past medical history, appointments, medications, allergies reviewed. Previous Medical History PAST MEDICAL HISTORY Diagnosis Date - Abdominal pain, generalized - Asthma - Dilated aortic root (HCC) - Dyspnea on exertion 11/2017 - Mild aortic insufficiency - Obstructive sleep apnea - PAF (paroxysmal atrial fibrillation) (HCC) 11/23/2017 - RBBB - Snoring - Unspecified essential hypertension Essential hypertension Previous Surgical History PAST SURGICAL HISTORY Procedure Laterality Date - APPENDECTOMY - CARPAL TUNNEL RIGHT WRIST 01/04/10 - COLONOSCOP W/ OR W/O BRSH SPEC 01/20/07 screening thru [facility] - COLONOSCOP W/ OR W/O BRSH SPEC 07/25/2016 normal colonoscopy 10 year follow up - EGD W/O OR W/BRUSH/WASH 06/23/2008 EGD - LAP CHOLECYSTECT/CHOLANGIOGRAPHY 07/07/08 - LEFT WRIST CARPAL TUNNEL ONLY 01/04/10 - PAST SURGICAL HISTORY OF 01/2004 HEEL SPUR left - PAST SURGICAL HISTORY OF 11/16/2016 Nose procedure, by Dr. Chua - PAST SURGICAL HISTORY OF N/A 05/23/2017 Prostectomy - Dr. Cohen - REMOVAL OF HEEL SPUR 12/20/09 right heel - REMOVAL OF TONSILS,<12 Y/O Tonsillectomy - REPAIR ROTATOR CUFF,ACUTE Rotator cuff repair - ROTATOR CUFF REPAIR 2011 right Family History FAMILY HISTORY Problem Relation Age of Onset - Heart Mother - Stroke Mother - None Father - None Brother Patient Allergies ALLERGIES No Known Allergies Current Medications Current Outpatient Prescriptions on File Prior to Visit: metoprolol tartrate, short acting, (LOPRESSOR) 50 mg tablet Take 0.5 tablets by mouth twice daily. apixaban (ELIQUIS) 5 mg tab(s) Take 1 tablet by mouth twice daily. losartan-hydrochlorothiazide (HYZAAR) 100-25 mg per tablet Take 1 tablet by mouth once daily. triamcinolone (KENALOG) 0.025 % cream Apply 1 application to affected area twice daily. COMPOUNDED PRESCRIPTION CPAP @ 11 cm of water with humidification. Mask (per patient preference) optional chin strap (if indicated) , filters, tubing, humidifier and lifetime supplies. Dx. TAE 327.23 Cholecalciferol, Vitamin D3, 1,000 unit cap Take 1 capsule by mouth once daily. vitamin b complex (B-COMPLEX) ORAL Tab one tablet daily fluticasone-salmeterol (ADVAIR DISKUS) 250-50 mcg/dose dsdv Inhale 1 Puff as instructed twice daily. Rinse and gargle mouth with water after each use. No current facility-administered medications on file prior to visit. Social History Social History Marital status: Spouse name: Years of education: Number of children: Social History Main Topics Smoking status: Never Smoker Smokeless tobacco: Never Used Comment: smoked a year about 40 years ago Alcohol use: No Drug use: No Sexual activity: Yes Partners with: Female EXAM: BP 124/88 (BP Site: Left Arm, BP Position: Sitting, BP Cuff Size: Large Adult) Pulse 84 Resp 16 Wt 117.8 kg (259 lb 9.6 oz) BMI 35.21 kg/m? General Appearance: Well appearing, alert, in no acute distress, well-hydrated, well nourished.. Lungs: Lungs clear to auscultation. No wheezing, rhonchi, rales. Heart: irregular. Health Maintenance List BLOOD PRESSURE CONTROLLED due on 1969 HEPATITIS C SCREENING due on 1995 PNEUMOVAX AGE 65 AND OVER WITH 5YR LOOKBACK(1) due on 2016 INFLUENZA(1) due on 01/05/2018 STEROID INHALER PRESCRIBED due on 01/05/2018 STEROID INHALER ADHERENCE due on 01/05/2018 ANNUAL PCP TEAM CHRONIC DISEASE VISIT due on 11/14/2018 DIABETES SCREEN due on 06/18/2020 LIPID SCREEN due on 06/18/2022 DTAP,TDAP,TD(2 - Td) due on 06/21/2026 COLORECTAL CANCER SCREENING,SEE MODIFIER due on 07/25/2026 PROSTATE CANCER SCREENING DISCUSSION Completed ADULT PREVNAR-13 Completed Data reviewed Labs/Stress Test ASSESSMENT/PLAN: 1. Essential hypertension, benign - ICD9: 401.1, ICD10: I10 (primary diagnosis) - good control - Continue current medication(s) - Recommend home blood pressure monitoring, to bring results in on next visit - Goal of BP <140/90 2. PAF (paroxysmal atrial fibrillation) (HCC) - ICD9: 427.31, ICD10: I48.0 Continue eliquis Follow up with Dr Mcclellan 3. Mild intermittent asthma without complication - ICD9: 493.90, ICD10: J45.20 Mild persistent Asthma stable 4. Dermatitis Continue prn kenalog cream Follow up in 6 months Radha Kamara MD The documentation for this note was completed by Khadra Mena Ma acting as scribe for Radha Kamara MD. December 26, 2017 8:20 AM. Referring Provider: RADHA KAMARA [[id number]] Allergies As of Date: 12/26/2017 (No Known Allergies) Date Reviewed: 12/26/2017 Reviewed by: Khadra Mena Ma - Fully Assessed Reason for Visit: F/U 1 month [1175] Cmt: HTN and Afib Primary Visit Diagnosis:Essential hypertension, benign [I10] Other Visit Diagnoses:PAF (paroxysmal atrial fibrillation) (HCC) [I48.0] Mild intermittent asthma without complication [J45.20] Dermatitis [L30.9] Prescriptions as of 12/26/2017 Sig: METOPROLOL TARTRATE 50 MG TAB* Take 0.5 tablets by mouth twi* APIXABAN 5 MG TABLET Take 1 tablet by mouth twice * LOSARTAN 100 MG-HYDROCHLOROTH* Take 1 tablet by mouth once d* TRIAMCINOLONE ACETONIDE 0.025* Apply 1 application to affect* COMPOUNDED PRESCRIPTION CPAP @ 11 cm of water with hu* CHOLECALCIFEROL (VITAMIN D3) * Take 1 capsule by mouth once * * B-COMPLEX TABLET one tablet daily FLUTICASONE 250 MCG-SALMETERO* Inhale 1 Puff as instructed t* Problem List As Of Date 12/26/2017 Noted Resolved BENIGN HYPERTENSION [I10] INVALID FOR* Sleep disturbance, unspecified [G47.9] INVALID FOR*12/26/2017 STOMACH FUNCTION DIS NEC [K31.89, R10.13] INVALID FOR* Abdominal pain, generalized [R10.84] INVALID FOR*12/26/2017 Nausea alone [R11.0] INVALID FOR*12/26/2017 Anxiety [F41.9] INVALID FOR* Hypogonadism male [E29.1] INVALID FOR* TAE (obstructive sleep apnea) [G47.33] INVALID FOR* More... Elevated prostate specific antigen (PSA) [R97.2*INVALID FOR* Encounter for screening for malignant neoplasm *INVALID FOR* Attention deficit disorder [F98.8] INVALID FOR* PAF (paroxysmal atrial fibrillation) (HCC) [I48*INVALID FOR* Cough in adult [R05] INVALID FOR*12/26/2017 More... Uncomplicated asthma [J45.909] INVALID FOR* Dermatitis [L30.9] INVALID FOR* Disposition: Return in about 6 months (around 06/28/2018). Follow-up and Disposition History Recorded Encounter Status:Closed by RADHA KAMARA MD on 12/26/17 PROGRESS Observed: 12/26/2017 Status: COMPLETED Source: [place] 8:[address] [facility] REPOSITORY HNO ID: [id number] Author: Radha Kamara Service: (none) Author Type: Physician Type: Progress Notes Filed: 12/26/2017 9:20 AM Note Text: Chief Complaint Patient presents with: F/U 1 month: HTN and Afib HPI Silviano Rangel is a 67 year old male who presents here today for a 1 mo f/u. Pt here today to f/u on his BP. HTN - Followed up with Dr. Mcclellan who has switched his BP regimen and asked pt to check his BP 2-3 per day. Denies chest pain or dizziness. Admits to sob which Pulmonary believes could be due to afib. BP ranging from 121/78-144/94. This am BP was 138/92 before medications. Afib - Switched recently to Eliquis 5 mg 1 tab po bid, due to being more cost effective. Will discuss with Dr Mcclellan other options for treatment. Normal stress test. Uses kenalog cream prn for recurring rash on right calf and buttock. Past medical history, appointments, medications, allergies reviewed. Previous Medical History PAST MEDICAL HISTORY Diagnosis Date - Abdominal pain, generalized - Asthma - Dilated aortic root (HCC) - Dyspnea on exertion 11/2017 - Mild aortic insufficiency - Obstructive sleep apnea - PAF (paroxysmal atrial fibrillation) (HCC) 11/23/2017 - RBBB - Snoring - Unspecified essential hypertension Essential hypertension Previous Surgical History PAST SURGICAL HISTORY Procedure Laterality Date - APPENDECTOMY - CARPAL TUNNEL RIGHT WRIST 01/04/10 - COLONOSCOP W/ OR W/O BRSH SPEC 01/20/07 screening thru [facility] - COLONOSCOP W/ OR W/O BRSH SPEC 07/25/2016 normal colonoscopy 10 year follow up - EGD W/O OR W/BRUSH/WASH 06/23/2008 EGD - LAP CHOLECYSTECT/CHOLANGIOGRAPHY 07/07/08 - LEFT WRIST CARPAL TUNNEL ONLY 01/04/10 - PAST SURGICAL HISTORY OF 01/2004 HEEL SPUR left - PAST SURGICAL HISTORY OF 11/16/2016 Nose procedure, by Dr. Chua - PAST SURGICAL HISTORY OF N/A 05/23/2017 Prostectomy - Dr. Cohen - REMOVAL OF HEEL SPUR 12/20/09 right heel - REMOVAL OF TONSILS,<12 Y/O Tonsillectomy - REPAIR ROTATOR CUFF,ACUTE Rotator cuff repair - ROTATOR CUFF REPAIR 2011 right Family History FAMILY HISTORY Problem Relation Age of Onset - Heart Mother - Stroke Mother - None Father - None Brother Patient Allergies ALLERGIES No Known Allergies Current Medications Current Outpatient Prescriptions on File Prior to Visit: metoprolol tartrate, short acting, (LOPRESSOR) 50 mg tablet Take 0.5 tablets by mouth twice daily. apixaban (ELIQUIS) 5 mg tab(s) Take 1 tablet by mouth twice daily. losartan-hydrochlorothiazide (HYZAAR) 100-25 mg per tablet Take 1 tablet by mouth once daily. triamcinolone (KENALOG) 0.025 % cream Apply 1 application to affected area twice daily. COMPOUNDED PRESCRIPTION CPAP @ 11 cm of water with humidification. Mask (per patient preference) optional chin strap (if indicated) , filters, tubing, humidifier and lifetime supplies. Dx. TAE 327.23 Cholecalciferol, Vitamin D3, 1,000 unit cap Take 1 capsule by mouth once daily. vitamin b complex (B-COMPLEX) ORAL Tab one tablet daily fluticasone-salmeterol (ADVAIR DISKUS) 250-50 mcg/dose dsdv Inhale 1 Puff as instructed twice daily. Rinse and gargle mouth with water after each use. No current facility-administered medications on file prior to visit. Social History Social History Marital status: Spouse name: Years of education: Number of children: Social History Main Topics Smoking status: Never Smoker Smokeless tobacco: Never Used Comment: smoked a year about 40 years ago Alcohol use: No Drug use: No Sexual activity: Yes Partners with: Female EXAM: BP 124/88 (BP Site: Left Arm, BP Position: Sitting, BP Cuff Size: Large Adult) Pulse 84 Resp 16 Wt 117.8 kg (259 lb 9.6 oz) BMI 35.21 kg/m? General Appearance: Well appearing, alert, in no acute distress, well-hydrated, well nourished.. Lungs: Lungs clear to auscultation. No wheezing, rhonchi, rales. Heart: irregular. Health Maintenance List BLOOD PRESSURE CONTROLLED due on 1969 HEPATITIS C SCREENING due on 1995 PNEUMOVAX AGE 65 AND OVER WITH 5YR LOOKBACK(1) due on 2016 INFLUENZA(1) due on 01/05/2018 STEROID INHALER PRESCRIBED due on 01/05/2018 STEROID INHALER ADHERENCE due on 01/05/2018 ANNUAL PCP TEAM CHRONIC DISEASE VISIT due on 11/14/2018 DIABETES SCREEN due on 06/18/2020 LIPID SCREEN due on 06/18/2022 DTAP,TDAP,TD(2 - Td) due on 06/21/2026 COLORECTAL CANCER SCREENING,SEE MODIFIER due on 07/25/2026 PROSTATE CANCER SCREENING DISCUSSION Completed ADULT PREVNAR-13 Completed Data reviewed Labs/Stress Test ASSESSMENT/PLAN: 1. Essential hypertension, benign - ICD9: 401.1, ICD10: I10 (primary diagnosis) - good control - Continue current medication(s) - Recommend home blood pressure monitoring, to bring results in on next visit - Goal of BP <140/90 2. PAF (paroxysmal atrial fibrillation) (HCC) - ICD9: 427.31, ICD10: I48.0 Continue eliquis Follow up with Dr Mcclellan 3. Mild intermittent asthma without complication - ICD9: 493.90, ICD10: J45.20 Mild persistent Asthma stable 4. Dermatitis Continue prn kenalog cream Follow up in 6 months Radha Kamara MD The documentation for this note was completed by Khadra Mena Ma acting as scribe for Radha Kamara MD. December 26, 2017 8:20 AM. [place] CARDIAC PERF Observed: 12/21/2017 Status: F Source: [place] STRESS/EXERCISE 2:30 PM [facility] REPOSITORY * * *Final Report* * * DATE OF EXAM: Dec 21 2017 2:30PM WON 0004 - NM CARDIAC PERF STRESS/EXERCISE / PROCEDURE REASON: Essential hypertension;PAF ; HUMMEL * * * * Physician Interpretation * * * * PATIENT: Name: SILVIANO RANGEL Age: 67 years Gender: M CONCLUSIONS: 1. SPECT Perfusion Study: Normal. 2. There is no scintigraphic evidence for inducible ischemia. 3. No evidence of scarred myocardium. 4. Fair functional capacity for age and gender. 5. Left ventricle is normal in size. The left ventricle systolic function is normal. 6. Right ventricle is normal in size. The right ventricle systolic function is normal. 7. This is a low risk scan. Gated Stress FBP LVEF % 67 Prior Study Comparison No prior nuclear cardiology exam available for comparison. Nuclear Med Report:1-Day [id number] Exercise Stress Gated SPECT: Myocardial perfusion imaging was performed at rest 30 to 60 minutes following the IV injection of Tc-99m tetrofosmin. One minute prior to peak exercise, the patient was injected IV with Tc-99m tetrofosmin. Gated post stress tomographic imaging was performed 10 to 20 minutes later. See administered doses below. [facility] Date of service: 12/21/2017 7:22:15 AM Ordering Physician: Requesting Physician: CHITO MCCLELLAN Indication: Assessment for suspected CAD and Dyspnea. Interpreting physician: Deepak Ordaz MD Patient History: History of hypertension, dyslipidemia and arrhythmia. Medications currently taking are B-shad, ARB and diuretic. Height: 182.88 cm BSA: 2.38 m? Weight: 111.59 kg BMI: 33.4 kg/m? Exam Type: Rest Stress Radiopharm: Tc-99m Tetrofosmin Tc-99m Tetrofosmin Dosage(mCi): 13.2 31.7 Stress Agent: Treadmill Resting Heart Rate: 119 bpm Resting Blood Press: 130/92 mmHg Image Quality The overall study imaging quality was deemed to be good. FINDINGS: Left Ventricle Wall Motion: Stress IR:3D - All scored segments are normal. Rest IR:3D - Gated Stress FBP - Reversibility - Stress IR:3D Stress IR:3D Gated Stress FBP LVEF: 67 % ED Volume: 89 ml ES Volume: 29 ml TID: 0.98 Perfusion Findings Stress IR:3D - Summed Score=0 All scored segments reflect normal perfusion. Rest IR:3D - Summed Score=0 All scored segments reflect normal perfusion. Stress IR:3D Rest IR:3D Summed Score=0 Summed Score=0 LEFT VENTRICLE The left ventricle is normal in size. Left ventricular systolic function is normal. Right Ventricle The right ventricle is normal in size. Right ventricle systolic function is normal. Stress Test Findings: There is no scintigraphic evidence for inducible ischemia. There is no evidence of scarring. The stress test was terminated due to the following: Fatigue. Peak HR 210 bpm. Exercise duration 7 min 30 sec. (137 % MPHR) (8.5 METS) Peak BP 180 mmHg/92 mmHg Patient experienced no symptoms during stress. Stress ECG normal ST segment response. Stress complications: none. The left ventricular cavity size is unchanged with stress. Final Formulation Scientist: AMAN Transcribe Date/Time: Dec 21 2017 7:22A Dictated by : DEEPAK ORDAZ MD This examination was interpreted and the report reviewed and electronically signed by: DEEPAK ORDAZ MD on Dec 21 2017 4:37PM EST [id number] PROGRESS Observed: 12/21/2017 Status: COMPLETED Source: [place] 1:[address] [facility] REPOSITORY HNO ID: [id number] Author: Rebecca Olson ([facility]) Tom Service: (none) Author Type: Manager It Training Type: Progress Notes Filed: 12/21/2017 1:57 PM Note Text: Preliminary report complete; results under imaging tab. T. Suellen Mary, [facility] EKG1 Observed: 12/21/2017 Status: F Source: [place] 1:[address] [facility] REPOSITORY NAME : SILVIANO RANGEL PID : [id number] : 1950 Gender : Male Race : ORD : Procedure Date : Dec 21 2017 13:09:08 Edit Date : Dec 21 2017 14:45:47 Diagnosis:ATRIAL FIBRILLATION WITH RAPID VENTRICULAR RESPONSE RIGHT AXIS INCOMPLETE RIGHT BUNDLE BRANCH BLOCK ABNORMAL ECG Confirmed by REPORT, SEE GXT ([id number]), advertising editor JUD FLAHERTY ([id number]) on 12/21/2017 2:45:14 PM Ventricular Rate : 119 BPM Atrial Rate : 107 BPM QRS Duration : 112 ms Q-T Interval : 330 ms QTC Calculation(Bezet) : 464 ms R [place] : 95 degrees T [place] : 45 degrees Test Reason : Location : 184 : WOGXT Overread By : REPORT,SEE GXT Edited By : JUD FLAHERTY Referred By : , Acquired by : RAQUEL Observed: 12/21/2017 Status: COMPLETED Source: [place] 1:[address] [facility] REPOSITORY Office Visit ([facility]) SILVIANO RANGEL ([id number]) 1950 M Date Time Provider Department 12/21/17 1:00 PM SUELLEN MARY ([facility]) [facility] During your visit today, we recorded the following information about you: CINDY Haji 12/21/2017 1:57 PM Signed Preliminary report complete; results under imaging tab. CINDY Haji Referring Provider: CHITO MCCLELLAN [[id number]] Allergies As of Date: 12/21/2017 (No Known Allergies) Date Reviewed: 12/19/2017 Reviewed by: Ashley Jesus - Fully Assessed Primary Visit Diagnosis:HUMMEL (dyspnea on exertion) [R06.09] Other Visit Diagnosis:PAF (paroxysmal atrial fibrillation) (HCC) [I48.0] Prescriptions as of 12/21/2017 Sig: FLUTICASONE 250 MCG-SALMETERO* Inhale 1 Puff as instructed t* METOPROLOL TARTRATE 50 MG TAB* Take 0.5 tablets by mouth twi* APIXABAN 5 MG TABLET Take 1 tablet by mouth twice * LOSARTAN 100 MG-HYDROCHLOROTH* Take 1 tablet by mouth once d* TRIAMCINOLONE ACETONIDE 0.025* Apply 1 application to affect* COMPOUNDED PRESCRIPTION CPAP @ 11 cm of water with hu* CHOLECALCIFEROL (VITAMIN D3) * Take 1 capsule by mouth once * * B-COMPLEX TABLET one tablet daily Problem List As Of Date 12/21/2017 Noted Resolved BENIGN HYPERTENSION [I10] INVALID FOR* SLEEP DISTURBANCE NOS [G47.9] INVALID FOR* STOMACH FUNCTION DIS NEC [K31.89, R10.13] INVALID FOR* ABDOMINAL PAIN GENERALIZED [R10.84] INVALID FOR* NAUSEA ALONE [R11.0] INVALID FOR* Anxiety [F41.9] INVALID FOR* Hypogonadism male [E29.1] INVALID FOR* ATE (obstructive sleep apnea) [G47.33] INVALID FOR* More... Elevated prostate specific antigen (PSA) [R97.2*INVALID FOR* Encounter for screening for malignant neoplasm *INVALID FOR* Attention deficit disorder [F98.8] INVALID FOR* PAF (paroxysmal atrial fibrillation) (HCC) [I48*INVALID FOR* Cough in adult [R05] INVALID FOR* More... Uncomplicated asthma [J45.909] INVALID FOR* Encounter Status:Closed by Rebecca ALEXANDRE on 12/21/17 PROGRESS Observed: 12/21/2017 Status: COMPLETED Source: [place] 12:[address] [facility] REPOSITORY HNO ID: [id number] Author: Abby Mccabe Service: (none) Author Type: (none) Type: Progress Notes Filed: 12/21/2017 3:32 PM Note Text: RADIOLOGY SERVICE PROGRESS NOTE SERVICE DATE: 12/21/2017 SERVICE TIME: 12:20 PM PATIENT IDENTITY VERIFICATION COMPLETED USING TWO (2) METHODS: Patient confirmed name and Date of verbally. PATIENT GENDER DATA: .male ALLERGIES: Reviewed and unchanged MEDICATIONS REVIEWED: Yes PATIENT RELEVANT IMPLANT DATA REVIEWED: Not Applicable CREATININE: Creatinine Date Value Ref Range Status 06/18/2017 1.08 0.73 - 1.22 mg/dL Final 06/16/2016 0.92 0.73 - 1.22 mg/dL Final eGFR-All Other Races Date Value Ref Range Status 06/18/2017 >60 . Final Comment: eGFR (Estimated GFR) Units of measure: mL/min/1.73 meters squared eGFR is derived from the reexpressed MDRD Study equation using the following parameters: serum creatinine, age, gender and race. The creatinine assay has been calibrated to be traceable to IDMS. An eGFR <60 mL/min/1.73m2 for >3 months is consistent with chronic kidney disease. Refer to KDOQI guidelines for clinical interpretation. In patients with unstable renal function, e.g. those with acute kidney injury, the eGFR may not accurately reflect actual GFR. eGFR- Date Value Ref Range Status 06/18/2017 >60 Final P.O.C.T. RESULTS: N/A December 21, [address] PERFORMED: No IV SITE: Ambulatory: A peripheral IV was started in the Right antecubital site with a Angio cath: 22 gauge. POST EXAM PIV STATUS: Discontinued PROCEDURE TYPE: NM Stress: 13.2mCi [id number] was administered IV for Rest Imaging at 12:07 by alesha Rome . 31.7 mCi Tc99m- Myoview was administered IV for Stress Imaging at 13:30 by alesha Rome. ADMINISTRATION TIME: PATIENT DISCHARGED TO: Ambulatory patient, left [place] department area. A Diagnostic radioactive procedure has taken place, with no further precautions necessary other than routine body substance precautions. More information regarding radiation safety can be found using this link: [email or web address] SIGNATURE: Abby Mccabe PATIENT NAME: Silviano Rangel DATE: December 21, 2017 TIME: 12:20 PM PAGER/CONTACT #: PROGRESS Observed: 12/19/2017 Status: COMPLETED Source: [place] 8:37 AM [facility] [place] REPOSITORY HNO ID: [id number] Author: Ashley Jesus Service: (none) Author Type: Physician Type: Progress Notes Filed: 12/19/2017 9:20 AM Note Text: Interval history: Mr. Rangel has been doing better. He reports an excellent response to prednisone in October. He is now on metoprolol and Xarelto for atrial fibrillation. He continues to have shortness of breath on exertion having to stop after about 400 feet of walking on flat ground. The cough has resolved. There is no nocturnal awakening. Asthma control test score is 19 today. He is using Advair haphazardly. His reflux is better controlled on notv-ews-arhajtg PPI. He's gradually losing weight and is compliant with CPAP therapy. Adderall has been stopped and he seems to have tolerated this reasonably well. Thyroid profile, electrolytes were within normal limits. Silviano is the sole alternative medicine practitioner for his who has MS. Extended history of present illness: Mr. Rangel is a 67 year old male with a past medical history of HTN and TAE who presented for a dry cough of 2 months duration, with some variable wheezing and SOB associated at times. He was given Tessalon perles which did not help cough, then placed on prednisone taper and antibiotic with some relief, but symptoms returned with steroid taper. He went to the ER and urgent care twice with SOB. He reported normal chest Xrays (not available for review). He had been very responsive to bronchodilators and oral steroid courses, with reoccurrence of cough, wheezing and SOB when tapering. He took 10mg Prednisone every other day. He used Flovent once or twice daily only when he was not feeling well. He did not use Albuterol inhaler. 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 Sometimes, he is affected by PVC coated fabric smoke that comes out from the machines. He remembers that his major trouble with breathing occurred during the weekdays and not over the weekends. Current Outpatient Prescriptions on File Prior to Visit: metoprolol tartrate, short acting, (LOPRESSOR) 50 mg tablet Take 0.5 tablets by mouth twice daily. apixaban (ELIQUIS) 5 mg tab(s) Take 1 tablet by mouth twice daily. losartan-hydrochlorothiazide (HYZAAR) 100-25 mg per tablet Take 1 tablet by mouth once daily. triamcinolone (KENALOG) 0.025 % cream Apply 1 application to affected area twice daily. COMPOUNDED PRESCRIPTION CPAP @ 11 cm of water with humidification. Mask (per patient preference) optional chin strap (if indicated) , filters, tubing, humidifier and lifetime supplies. Dx. TAE 327.23 Cholecalciferol, Vitamin D3, 1,000 unit cap Take 1 capsule by mouth once daily. vitamin b complex (B-COMPLEX) ORAL Tab one tablet daily No current facility-administered medications on file prior to visit. PAST MEDICAL HISTORY Diagnosis Date - Abdominal pain, generalized - Asthma - Dilated aortic root (HCC) - Dyspnea on exertion 11/2017 - Mild aortic insufficiency - Obstructive sleep apnea - PAF (paroxysmal atrial fibrillation) (HCC) 11/23/2017 - RBBB - Snoring - Unspecified essential hypertension Essential hypertension PAST SURGICAL HISTORY Procedure Laterality Date - APPENDECTOMY - CARPAL TUNNEL RIGHT WRIST 01/04/10 - COLONOSCOP W/ OR W/O [facility] SPEC 01/20/07 screening thru [facility] - COLONOSCOP W/ OR W/O [facility] SPEC 07/25/2016 normal colonoscopy 10 year follow up - EGD W/O OR W/BRUSH/WASH 06/23/2008 EGD - LAP CHOLECYSTECT/CHOLANGIOGRAPHY 07/07/08 - LEFT WRIST CARPAL TUNNEL ONLY 01/04/10 - PAST SURGICAL HISTORY OF 01/2004 HEEL SPUR left - PAST SURGICAL HISTORY OF 11/16/2016 Nose procedure, by Dr. Chua - PAST SURGICAL HISTORY OF N/A 05/23/2017 Prostectomy - Dr. Cohen - REMOVAL OF HEEL SPUR 12/20/09 right heel - REMOVAL OF TONSILS,<12 Y/O Tonsillectomy - REPAIR ROTATOR CUFF,ACUTE Rotator cuff repair - ROTATOR CUFF REPAIR 2011 right FAMILY HISTORY Problem Relation Age of Onset - Heart Mother - Stroke Mother - None Father - None Brother Social History Marital status: Spouse name: Years of education: Number of children: Social History Main Topics Smoking status: Never Smoker Smokeless tobacco: Never Used Comment: smoked a year about 40 years ago Alcohol use: No Drug use: No Sexual activity: Yes Partners with: Female Physical examination: BP 142/96 Pulse 97 Temp 36.2 ?C (97.2 ?F) (Temporal Artery) Resp 16 Ht 182.9 cm (6') Wt 111.6 kg (246 lb) SpO2 98% BMI 33.36 kg/m? No JVD No pallor Irregular rhythm Good air entry bilaterally. No wheezing or crackles. Overweight No peripheral edema. 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 2 10/21/2015 03:16:43PM Medications and Allergies were reviewed for possible drug interactions per policy MM-102. No contraindications or sensitivities were noted. Respiratory meds taken: Flovent 9 hours before testing. 4 puffs albuterol (360 mcg) delivered by MDI via valved holding chamber, HRpre= 90/min, HRpost= 90/min. Pre and Post Frederick: ATS acceptability and repeatability standards for spirometry met. Lung Volumes: Lung volume repeatability not met for TLC, TGV, RV. Best value reported. DLCO: ATS acceptability and repeatability standards for DLCO met. DLCO is not hemoglobin corrected.//KF IMPRESSION: Spirometry shows no obstruction. . There is no significant bronchodilator response. The TLC, RV and RV/TLC are normal. The diffusing capacity is normal. Electronically Signed On 10-21-2015 16:41:31 EDT by Fellow Jourdan Charles Electronically Signed On 10-22-2015 13:43:48 EDT by Compa Melchor [facility] [place] Pulmonary Function Lab Pred N N Pre % Post % % chg Date [id number] Time 02:46PM 03:13PM -- Height 176.6 176.6 Weight 121.5 121.5 -- FVC 4.56 3.64 5.48 3.23 71 3.29 72 2 FEV 1 3.41 2.64 4.19 2.37 70 2.58 76 9 FEV1%F 74.84 65.17 84.52 73.57 98 78.46 105 7 FEV 2 3.70 2.66 4.74 2.76 75 2.91 79 6 FEV 3 4.20 3.18 5.22 2.88 69 3.03 72 5 FEV3%E 91.74 87.10 96.38 89.27 97 92.20 101 3 MEF 50 4.20 2.57 5.82 2.15 51 2.75 65 28 FIF 50 5.51 3.99 -28 F25/75 2.73 1.15 4.31 1.66 61 2.22 81 34 FE%FIF 39.01 68.86 77 FEV6 3.08 3.18 3 PEF 8.37 6.01 10.73 7.99 96 8.19 98 2 FET 13.24 10.97 -17 FETPEF 0.05 0.04 -20 VBe%FV 3.72 1.95 -47 VBEex 0.12 0.06 -47 -- -- -- -- FRCpl 3.62 2 .16 5.08 2.64 73 ERV 0.12 RV 2.30 1.54 3.06 2.52 110 VC 4.56 3.64 5.48 3.81 84 TLC 6.91 5.30 8.52 6.34 92 RV%TLC 33.84 25.04 42.64 39.83 118 -- DLCO 27.32 19.32 35.33 23.89 87 DL/VA 4.15 2.95 5.35 4.45 107 VA 6.73 5.36 8.10 5.36 80 IGNACIO 4.56 3.64 5.48 3.48 76 BHT 11.25 %COHb 0 .00 -- -- -- CT chest: 07/02/2015 ?9:38 AM - Results In Interface ? Impression ? IMPRESSION: 1. ?Minimal atelectasis or scarring in the inferolateral left lung base. 2. ?Remote granulomatous disease. 3. ?Geographic hepatic steatosis. Formulation Scientist: PSC Transcribe Date/Time: Jul 02 2015 ?9:33A Dictated by : MAILE MCGRAW MD This examination was interpreted and the report reviewed and electronically signed by: MAILE MCGRAW MD On Jul 02 2015 ?9:33AM ? ? Serology is negative for common allergen sensitization (allergen respiratory panel region 8). Assessment and plan: Asthma Paroxysmal atrial fibrillation GERD TAE on CPAP Mr. Rangel has responded to treatment with prednisone suggesting that his respiratory problems were at least in part due to asthma. However, I suspect that atrial fibrillation is contributing significantly to his symptoms. To that end, he may benefit from uptitration of metoprolol. He will undergo nuclear medicine stress test soon to exclude ischemic heart disease as an etiology for his exertional shortness of breath. I asked him to be adherent to Advair 250/50 one inhalation twice daily. reports worsening of respiratory symptoms which may represent asthma exacerbation. I suggested prednisone 40 mg for 5 days and resuming Advair 250/50 one inhalation twice daily. Return to clinic in 3 months. Ashley Jesus MD [facility] [place] [facility] [place] CNOV Observed: 12/19/2017 Status: COMPLETED Source: [place] 8:[address] [facility] REPOSITORY Office Visit (PULMMN) SILVIANO RANGEL ([id number]) 1950 M Date Time Provider Department 12/19/17 8:25 AM ASHLEY JESUS During your visit today, we recorded the following information about you: Temperature Pulse Respiration Blood pressure 97.2 degrees 97/minute 16/minute 142/96 Weight Height 111.6 kg 1.829 m Ashley Jesus MD 12/19/2017 9:20 AM Signed Interval history: Mr. Rangel has been doing better. He reports an excellent response to prednisone in October. He is now on metoprolol and Xarelto for atrial fibrillation. He continues to have shortness of breath on exertion having to stop after about 400 feet of walking on flat ground. The cough has resolved. There is no nocturnal awakening. Asthma control test score is 19 today. He is using Advair haphazardly. His reflux is better controlled on xeju-ogx-uajjwaz PPI. He's gradually losing weight and is compliant with CPAP therapy. Adderall has been stopped and he seems to have tolerated this reasonably well. Thyroid profile, electrolytes were within normal limits. Silviano is the sole alternative medicine practitioner for his who has MS. Extended history of present illness: Mr. Rangel is a 67 year old male with a past medical history of HTN and TAE who presented for a dry cough of 2 months duration, with some variable wheezing and SOB associated at times. He was given Tessalon perles which did not help cough, then placed on prednisone taper and antibiotic with some relief, but symptoms returned with steroid taper. He went to the ER and urgent care twice with SOB. He reported normal chest Xrays (not available for review). He had been very responsive to bronchodilators and oral steroid courses, with reoccurrence of cough, wheezing and SOB when tapering. He took 10mg Prednisone every other day. He used Flovent once or twice daily only when he was not feeling well. He did not use Albuterol inhaler. 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 Sometimes, he is affected by PVC coated fabric smoke that comes out from the machines. He remembers that his major trouble with breathing occurred during the weekdays and not over the weekends. Current Outpatient Prescriptions on File Prior to Visit: metoprolol tartrate, short acting, (LOPRESSOR) 50 mg tablet Take 0.5 tablets by mouth twice daily. apixaban (ELIQUIS) 5 mg tab(s) Take 1 tablet by mouth twice daily. losartan-hydrochlorothiazide (HYZAAR) 100-25 mg per tablet Take 1 tablet by mouth once daily. triamcinolone (KENALOG) 0.025 % cream Apply 1 application to affected area twice daily. COMPOUNDED PRESCRIPTION CPAP @ 11 cm of water with humidification. Mask (per patient preference) optional chin strap (if indicated) , filters, tubing, humidifier and lifetime supplies. Dx. TAE 327.23 Cholecalciferol, Vitamin D3, 1,000 unit cap Take 1 capsule by mouth once daily. vitamin b complex (B-COMPLEX) ORAL Tab one tablet daily No current facility-administered medications on file prior to visit. PAST MEDICAL HISTORY Diagnosis Date - Abdominal pain, generalized - Asthma - Dilated aortic root (HCC) - Dyspnea on exertion 11/2017 - Mild aortic insufficiency - Obstructive sleep apnea - PAF (paroxysmal atrial fibrillation) (HCC) 11/23/2017 - RBBB - Snoring - Unspecified essential hypertension Essential hypertension PAST SURGICAL HISTORY Procedure Laterality Date - APPENDECTOMY - CARPAL TUNNEL RIGHT WRIST 01/04/10 - COLONOSCOP W/ OR W/O [facility] SPEC 01/20/07 screening thru [facility] - COLONOSCOP W/ OR W/O [facility] SPEC 07/25/2016 normal colonoscopy 10 year follow up - EGD W/O OR W/BRUSH/WASH 06/23/2008 EGD - LAP CHOLECYSTECT/CHOLANGIOGRAPHY 07/07/08 - LEFT WRIST CARPAL TUNNEL ONLY 01/04/10 - PAST SURGICAL HISTORY OF 01/2004 HEEL SPUR left - PAST SURGICAL HISTORY OF 11/16/2016 Nose procedure, by Dr. Chua - PAST SURGICAL HISTORY OF N/A 05/23/2017 Prostectomy - Dr. Cohen - REMOVAL OF HEEL SPUR 12/20/09 right heel - REMOVAL OF TONSILS,<12 Y/O Tonsillectomy - REPAIR ROTATOR CUFF,ACUTE Rotator cuff repair - ROTATOR CUFF REPAIR 2011 right FAMILY HISTORY Problem Relation Age of Onset - Heart Mother - Stroke Mother - None Father - None Brother Social History Marital status: Spouse name: Years of education: Number of children: Social History Main Topics Smoking status: Never Smoker Smokeless tobacco: Never Used Comment: smoked a year about 40 years ago Alcohol use: No Drug use: No Sexual activity: Yes Partners with: Female Physical examination: BP 142/96 Pulse 97 Temp 36.2 ?C (97.2 ?F) (Temporal Artery) Resp 16 Ht 182.9 cm (6') Wt 111.6 kg (246 lb) SpO2 98% BMI 33.36 kg/m? No JVD No pallor Irregular rhythm Good air entry bilaterally. No wheezing or crackles. Overweight No peripheral edema. 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 2 10/21/2015 03:16:43PM Medications and Allergies were reviewed for possible drug interactions per policy MM-102. No contraindications or sensitivities were noted. Respiratory meds taken: Flovent 9 hours before testing. 4 puffs albuterol (360 mcg) delivered by MDI via valved holding chamber, HRpre= 90/min, HRpost= 90/min. Pre and Post Frederick: ATS acceptability and repeatability standards for spirometry met. Lung Volumes: Lung volume repeatability not met for TLC, TGV, RV. Best value reported. DLCO: ATS acceptability and repeatability standards for DLCO met. DLCO is not hemoglobin corrected.//KF IMPRESSION: Spirometry shows no obstruction. . There is no significant bronchodilator response. The TLC, RV and RV/TLC are normal. The diffusing capacity is normal. Electronically Signed On 10-21-2015 16:41:31 EDT by Fellow Jourdan Charles Electronically Signed On 10-22-2015 13:43:48 EDT by Compa Melchor [facility] [place] Pulmonary Function Lab Pred [facility] Pre % Post % % [facility] Date [id number] Time 02:46PM 03:13PM Height 176.6 176.6 Weight 121.5 121.5 FVC 4.56 3.64 5.48 3.23 71 3.29 72 2 FEV 1 3.41 2.64 4.19 2.37 70 2.58 76 9 FEV1%F 74.84 65.17 84.52 73.57 98 78.46 105 7 FEV 2 3.70 2.66 4.74 2.76 75 2.91 79 6 FEV 3 4.20 3.18 5.22 2.88 69 3.03 72 5 FEV3%E 91.74 87.10 96.38 89.27 97 92.20 101 3 MEF 50 4.20 2.57 5.82 2.15 51 2.75 65 28 FIF 50 5.51 3.99 -28 F25/75 2.73 1.15 4.31 1.66 61 2.22 81 34 FE%FIF 39.01 68.86 77 FEV6 3.08 3.18 3 PEF 8.37 6.01 10.73 7.99 96 8.19 98 2 FET 13.24 10.97 -17 FETPEF 0.05 0.04 -20 VBe%FV 3.72 1.95 -47 VBEex 0.12 0.06 -47 FRCpl 3.62 2 .16 5.08 2.64 73 ERV 0.12 RV 2.30 1.54 3.06 2.52 110 VC 4.56 3.64 5.48 3.81 84 TLC 6.91 5.30 8.52 6.34 92 RV%TLC 33.84 25.04 42.64 39.83 118 DLCO 27.32 19.32 35.33 23.89 87 DL/VA 4.15 2.95 5.35 4.45 107 VA 6.73 5.36 8.10 5.36 80 IGNACIO 4.56 3.64 5.48 3.48 76 BHT 11.25 %COHb [address] chest: 07/02/2015 ?9:38 AM - Results In Interface ? Impression ? IMPRESSION: 1. ?Minimal atelectasis or scarring in the inferolateral left lung base. 2. ?Remote granulomatous disease. 3. ?Geographic hepatic steatosis. Formulation Scientist: PSC Transcribe Date/Time: Jul 02 2015 ?9:33A Dictated by : MAILE MCGRAW MD This examination was interpreted and the report reviewed and electronically signed by: MAILE MCGRAW MD On Jul 02 2015 ?9:33AM ? ? Serology is negative for common allergen sensitization (allergen respiratory panel region 8). Assessment and plan: Asthma Paroxysmal atrial fibrillation GERD TAE on CPAP Mr. Rangel has responded to treatment with prednisone suggesting that his respiratory problems were at least in part due to asthma. However, I suspect that atrial fibrillation is contributing significantly to his symptoms. To that end, he may benefit from uptitration of metoprolol. He will undergo nuclear medicine stress test soon to exclude ischemic heart disease as an etiology for his exertional shortness of breath. I asked him to be adherent to Advair 250/50 one inhalation twice daily. reports worsening of respiratory symptoms which may represent asthma exacerbation. I suggested prednisone 40 mg for 5 days and resuming Advair 250/50 one inhalation twice daily. Return to clinic in 3 months. Ashley Jesus MD [facility] [place] [facility] [place] Referring Provider: ASHLEY JESUS [[id number]] Allergies As of Date: 12/19/2017 (No Known Allergies) Date Reviewed: 12/19/2017 Reviewed by: Ashley Jesus - Fully Assessed Reason for Visit: Recheck [92] Primary Visit Diagnosis:Uncomplicated asthma, unspecified asthma severity, unspecified whether persistent [J45.909] Other Visit Diagnosis:PAF (paroxysmal atrial fibrillation) ([facility]) [I48.0] Order(s):fluticasone-salmeterol (ADVAIR DISKUS) 250-50 mcg/dose dsdvInhale 1 Puff as instructed twice daily. Rinse and gargle mouth with water after each use.Disp: 1 InhalerRfl: 5 Prescriptions as of 12/19/2017 Sig: FLUTICASONE 250 MCG-SALMETERO* Inhale 1 Puff as instructed t* METOPROLOL TARTRATE 50 MG TAB* Take 0.5 tablets by mouth twi* APIXABAN 5 MG TABLET Take 1 tablet by mouth twice * LOSARTAN 100 MG-HYDROCHLOROTH* Take 1 tablet by mouth once d* TRIAMCINOLONE ACETONIDE 0.025* Apply 1 application to affect* COMPOUNDED PRESCRIPTION CPAP @ 11 cm of water with hu* CHOLECALCIFEROL (VITAMIN D3) * Take 1 capsule by mouth once * * B-COMPLEX TABLET one tablet daily Problem List As Of Date 12/19/2017 Noted Resolved BENIGN HYPERTENSION [I10] INVALID FOR* SLEEP DISTURBANCE NOS [G47.9] INVALID FOR* STOMACH FUNCTION DIS NEC [K31.89, R10.13] INVALID FOR* ABDOMINAL PAIN GENERALIZED [R10.84] INVALID FOR* NAUSEA ALONE [R11.0] INVALID FOR* Anxiety [F41.9] INVALID FOR* Hypogonadism male [E29.1] INVALID FOR* TAE (obstructive sleep apnea) [G47.33] INVALID FOR* More... Elevated prostate specific antigen (PSA) [R97.2*INVALID FOR* Encounter for screening for malignant neoplasm *INVALID FOR* Attention deficit disorder [F98.8] INVALID FOR* PAF (paroxysmal atrial fibrillation) (HCC) [I48*INVALID FOR* Cough in adult [R05] INVALID FOR* More... Uncomplicated asthma [J45.909] INVALID FOR* Prescriptions ordered this encounter Disp Refills Start End FLUTICASONE 250 MCG-SALMETEROL 50 MC* 1 In* 5 12/19/2017 Route: INHALATION Sig: Inhale 1 Puff as instructed twice daily. Rinse and gargle mouth with water after each use. Disposition: Return in about 3 months (around 03/21/2018). Follow-up and Disposition History Recorded Questionnaire: ASTHMA CONTROL TEST Last 4 weeks, your asthma limited your activity at work or home: -> 4 A LITTLE OF THE TIME Past 4 weeks, how often have you had shortness of breath? -> 2 ONCE A DAY Past 4 weeks: Asthma symptoms woke you at night or earlier than usual? -> 5 NOT AT ALL Past 4 weeks: How often did you use rescue inhaler or nebulizer med? -> 5 NOT AT ALL Rate your Asthma Control during the past 4 weeks: -> 3 SOMEWHAT CONTROLLED ACT TOTAL SCORE: -> 19 Encounter Status:Closed by ASHLEY JESUS MD on 12/19/17 HISTORY PHYSICAL Observed: 11/27/2017 Status: COMPLETED Source: [place] 9:50 AM [facility] [place] REPOSITORY HNO ID: [id number] Author: Vidhi Atkinson Service: (none) Author Type: Nurse Practitioner Type: HANDP Filed: 11/27/2017 2:03 PM Note Text: Silviano Rangel a 67 year old male who is a consultation requested by Dr. Kamara for an opinion regarding acid reflux. My final recommendations will be communicated back to the requesting physician by way of shared Medical record. The patient has not been seen previously. The patient sees Dr. Mcclellan and was started on Xarelto for PAF. He plans to change to Eliquis, as it is less expensive. The patient was seen by Dr. Kamara on 11/14/17, leading to this consultation. That note has been reviewed and part as follows: Asthma - Notes that he is trying to use OTC PPI (Prilosec) to help with his dry cough with no phlegm. He feels this does help with the cough at times as well as him reducing acidic foods. Discussed this with a family member who had these same issues and a scope performed at ENT. Follows with Oral And Maxillofacial Pathologist, Dr. El at [facility]. Presenting complaint: The patient presents today reporting a dry cough. He was seen by Pulmonary. On medications, still with symptoms. The patient tells me that tried OTC PPI since a relative had similar symptoms and saw ENT was told she has acid reflux. He tells me that he is 85% better since starting it about a month ago. He also cut back on coffee and lemon in his water. The patient has also lost over 40 pounds. He eats a healthy diet. Usually has dinner about 5:30-6:00. Sometimes has a snack of fruit or celery with pb. Heads to bed about 9-9:30. He sleeps with the head of the bed flat. He uses CPAP. I have recommended elevating the head of the bed. REVIEW OF SYSTEMS: GENERAL: Weight loss - planned. HEENT: Negative for frequent or significant headaches, No changes in hearing or vision, no nose bleeds or other nasal problems NECK: Negative for lumps, goiter, pain and significant neck swelling RESPIRATORY: Cough; dry, presumed asthma. CARDIOVASCULAR: Shortness of breath, See HPI. On medication for Afib. GI: The patient states that his appetite has been good. He does get hungry. There has been no nausea, no vomiting. He denies dysphagia and denies odynophagia. There has not been indigestion or heartburn. There has not been regurgitation. Bowel habits have been regular. There has not been diarrhea. There has not been constipation. The patient denies rectal bleeding. There has not been melena. No abdominal pain. HEMATOLOGY/LYMPHOLOGY: Potential due to medication. ENDOCRINE: Negative for thyroid and diabetes. NEURO: No history of headaches, syncope, paralysis, seizures or tremors All other reviewed and negative other than HPI. PAST MEDICAL HISTORY Diagnosis Date - Abdominal pain, generalized - Asthma - Obstructive sleep apnea - PAF (paroxysmal atrial fibrillation) ([facility]) 11/23/2017 - Snoring - Unspecified essential hypertension Essential hypertension PAST SURGICAL HISTORY Procedure Laterality Date - APPENDECTOMY - CARPAL TUNNEL RIGHT WRIST 01/04/10 - COLONOSCOP W/ OR W/O [facility] SPEC 01/20/07 screening thru [facility] - COLONOSCOP W/ OR W/O [facility] SPEC 07/25/2016 normal colonoscopy 10 year follow up - EGD W/O OR W/BRUSH/WASH 06/23/2008 EGD - LAP CHOLECYSTECT/CHOLANGIOGRAPHY 07/07/08 - LEFT WRIST CARPAL TUNNEL ONLY 01/04/10 - PAST SURGICAL HISTORY OF 01/2004 HEEL SPUR left - PAST SURGICAL HISTORY OF 11/16/2016 Nose procedure, by Dr. Chua - PAST SURGICAL HISTORY OF N/A 05/23/2017 Prostectomy - Dr. Cohen - REMOVAL OF HEEL SPUR 12/20/09 right heel - REMOVAL OF TONSILS,<12 Y/O Tonsillectomy - REPAIR ROTATOR CUFF,ACUTE Rotator cuff repair - ROTATOR CUFF REPAIR 2010 right FAMILY HISTORY Problem Relation Age of Onset - Heart Mother - Stroke Mother - None Father - None Brother Current Outpatient Prescriptions: metoprolol tartrate, short acting, (LOPRESSOR) 50 mg tablet Take 0.5 tablets by mouth twice daily. Disp: 30 tablet Rfl: 6 apixaban (ELIQUIS) 5 mg tab(s) Take 1 tablet by mouth twice daily. Disp: 60 tablet Rfl: 11 losartan-hydrochlorothiazide (HYZAAR) 100-25 mg per tablet Take 1 tablet by mouth once daily. Disp: 30 tablet Rfl: 2 triamcinolone (KENALOG) 0.025 % cream Apply 1 application to affected area twice daily. Disp: 30 g Rfl: 2 COMPOUNDED PRESCRIPTION CPAP @ 11 cm of water with humidification. Mask (per patient preference) optional chin strap (if indicated) , filters, tubing, humidifier and lifetime supplies. Dx. TAE 327.23 Disp: Rfl: 0 Cholecalciferol, Vitamin D3, 1,000 unit cap Take 1 capsule by mouth once daily. Disp: Rfl: 0 vitamin b complex (B-COMPLEX) ORAL Tab one tablet daily Disp: 0 Rfl: 0 No current facility-administered medications for this visit. SOCIAL HISTORY: Patient is . He smoked for about a year, 40 years ago. He reports his alcohol use as never. PHYSICAL EXAMINATION: Blood pressure 131/89, pulse 91, height 185.4 cm (6' 1), weight 116.1 kg (256 lb). General Appearance: Well appearing, alert, in no acute distress, well-hydrated, well nourished. Skin: Skin color, texture, turgor normal, no suspicious rashes or lesions. Head: Normocephalic, no masses, lesions or abnormalities. Eyes: Anicteric sclera. Oropharynx: Lips, mucosa, and tongue normal, teeth and gums normal, oropharynx normal. Neck: Supple, no adenopathy; thyroid symmetric, normal size. Lungs: Lungs clear to auscultation. No wheezing, rhonchi, rales. Heart: RRR without murmur,. Abdomen: Normal abdominal exam, Abdomen soft, non-tender. Bowel sounds normal. No masses, organomegaly. Extremities: No deformities, edema, skin discoloration, clubbing or cyanosis. Impression: acid reflux Plan: Continue OTC PPI. Recommended elevating the head of the bed, or using a wedge pillow. The patient is scheduled for upper endoscopy with Dr. Galloway, so that he doesn't have to stop the Eliquis/Xarelto. Preparation for the procedure and the procedure itself have been explained in detail. The risks, benefits, anticipated outcomes and possible complications were mentioned. I also explained the procedure in understandable terms and the patient was given printed material concerning the planned procedure. The patient had the opportunity to ask questions concerning the planned procedure. The patient freely consents to the planned procedure. The patient is asked to call with any questions or concerns, or if there is a change in health status between now and the scheduled procedure. I have personally interviewed and examined this patient. I have read the information that the MA documented in this encounter. I spent 30 minutes in the visit, with more than 50% of the total bshe-jz-umri time of the visit in counseling / coordination of care. Vidhi Atkinson RN APRN.WEIGHT GUESSER CNOV Observed: 11/27/2017 Status: COMPLETED Source: [place] 9:[address] [facility] REPOSITORY [facility] SILVIANO RANGEL ([id number]) 1950 M Date Time Provider Department 11/27/17 9:40 AM VIDHI ATKINSON (BRUSH MACHINE SETTER) [facility] During your visit today, we recorded the following information about you: Pulse Blood pressure Weight Height 91/minute 131/89 116.1 kg 1.854 m Vidhi Atkinson RN APRN.RENEE 11/27/2017 2:03 PM Signed Silviano Rangel a 67 year old male who is a consultation requested by Dr. Kamara for an opinion regarding acid reflux. My final recommendations will be communicated back to the requesting physician by way of shared Medical record. The patient has not been seen previously. The patient sees Dr. Mcclellan and was started on Xarelto for PAF. He plans to change to Eliquis, as it is less expensive. The patient was seen by Dr. Kamara on 11/14/17, leading to this consultation. That note has been reviewed and part as follows: Asthma - Notes that he is trying to use OTC PPI (Prilosec) to help with his dry cough with no phlegm. He feels this does help with the cough at times as well as him reducing acidic foods. Discussed this with a family member who had these same issues and a scope performed at ENT. Follows with Oral And Maxillofacial Pathologist, Dr. El at [facility]. Presenting complaint: The patient presents today reporting a dry cough. He was seen by Pulmonary. On medications, still with symptoms. The patient tells me that tried OTC PPI since a relative had similar symptoms and saw ENT was told she has acid reflux. He tells me that he is 85% better since starting it about a month ago. He also cut back on coffee and lemon in his water. The patient has also lost over 40 pounds. He eats a healthy diet. Usually has dinner about 5:30-6:00. Sometimes has a snack of fruit or celery with pb. Heads to bed about 9-9:30. He sleeps with the head of the bed flat. He uses CPAP. I have recommended elevating the head of the bed. REVIEW OF SYSTEMS: GENERAL: Weight loss - planned. HEENT: Negative for frequent or significant headaches, No changes in hearing or vision, no nose bleeds or other nasal problems NECK: Negative for lumps, goiter, pain and significant neck swelling RESPIRATORY: Cough; dry, presumed asthma. CARDIOVASCULAR: Shortness of breath, See HPI. On medication for Afib. GI: The patient states that his appetite has been good. He does get hungry. There has been no nausea, no vomiting. He denies dysphagia and denies odynophagia. There has not been indigestion or heartburn. There has not been regurgitation. Bowel habits have been regular. There has not been diarrhea. There has not been constipation. The patient denies rectal bleeding. There has not been melena. No abdominal pain. HEMATOLOGY/LYMPHOLOGY: Potential due to medication. ENDOCRINE: Negative for thyroid and diabetes. NEURO: No history of headaches, syncope, paralysis, seizures or tremors All other reviewed and negative other than HPI. PAST MEDICAL HISTORY Diagnosis Date - Abdominal pain, generalized - Asthma - Obstructive sleep apnea - PAF (paroxysmal atrial fibrillation) ([facility]) 11/23/2017 - Snoring - Unspecified essential hypertension Essential hypertension PAST SURGICAL HISTORY Procedure Laterality Date - APPENDECTOMY - CARPAL TUNNEL RIGHT WRIST 01/04/10 - COLONOSCOP W/ OR W/O [facility] SPEC 01/20/07 screening thru [facility] - COLONOSCOP W/ OR W/O [facility] SPEC 07/25/2016 normal colonoscopy 10 year follow up - EGD W/O OR W/BRUSH/WASH 06/23/2008 EGD - LAP CHOLECYSTECT/CHOLANGIOGRAPHY 07/07/08 - LEFT WRIST CARPAL TUNNEL ONLY 01/04/10 - PAST SURGICAL HISTORY OF 01/2004 HEEL SPUR left - PAST SURGICAL HISTORY OF 11/16/2016 Nose procedure, by Dr. Chua - PAST SURGICAL HISTORY OF N/A 05/23/2017 Prostectomy - Dr. Cohen - REMOVAL OF HEEL SPUR 12/20/09 right heel - REMOVAL OF TONSILS,<12 Y/O Tonsillectomy - REPAIR ROTATOR CUFF,ACUTE Rotator cuff repair - ROTATOR CUFF REPAIR 2010 right FAMILY HISTORY Problem Relation Age of Onset - Heart Mother - Stroke Mother - None Father - None Brother Current Outpatient Prescriptions: metoprolol tartrate, short acting, (LOPRESSOR) 50 mg tablet Take 0.5 tablets by mouth twice daily. Disp: 30 tablet Rfl: 6 apixaban (ELIQUIS) 5 mg tab(s) Take 1 tablet by mouth twice daily. Disp: 60 tablet Rfl: 11 losartan-hydrochlorothiazide (HYZAAR) 100-25 mg per tablet Take 1 tablet by mouth once daily. Disp: 30 tablet Rfl: 2 triamcinolone (KENALOG) 0.025 % cream Apply 1 application to affected area twice daily. Disp: 30 g Rfl: 2 COMPOUNDED PRESCRIPTION CPAP @ 11 cm of water with humidification. Mask (per patient preference) optional chin strap (if indicated) , filters, tubing, humidifier and lifetime supplies. Dx. TAE 327.23 Disp: Rfl: 0 Cholecalciferol, Vitamin D3, 1,000 unit cap Take 1 capsule by mouth once daily. Disp: Rfl: 0 vitamin b complex (B-COMPLEX) ORAL Tab one tablet daily Disp: 0 Rfl: 0 No current facility-administered medications for this visit. SOCIAL HISTORY: Patient is . He smoked for about a year, 40 years ago. He reports his alcohol use as never. PHYSICAL EXAMINATION: Blood pressure 131/89, pulse 91, height 185.4 cm (6' 1), weight 116.1 kg (256 lb). General Appearance: Well appearing, alert, in no acute distress, well-hydrated, well nourished. Skin: Skin color, texture, turgor normal, no suspicious rashes or lesions. Head: Normocephalic, no masses, lesions or abnormalities. Eyes: Anicteric sclera. Oropharynx: Lips, mucosa, and tongue normal, teeth and gums normal, oropharynx normal. Neck: Supple, no adenopathy; thyroid symmetric, normal size. Lungs: Lungs clear to auscultation. No wheezing, rhonchi, rales. Heart: RRR without murmur,. Abdomen: Normal abdominal exam, Abdomen soft, non-tender. Bowel sounds normal. No masses, organomegaly. Extremities: No deformities, edema, skin discoloration, clubbing or cyanosis. Impression: acid reflux Plan: Continue OTC PPI. Recommended elevating the head of the bed, or using a wedge pillow. The patient is scheduled for upper endoscopy with Dr. Galloway, so that he doesn't have to stop the Eliquis/Xarelto. Preparation for the procedure and the procedure itself have been explained in detail. The risks, benefits, anticipated outcomes and possible complications were mentioned. I also explained the procedure in understandable terms and the patient was given printed material concerning the planned procedure. The patient had the opportunity to ask questions concerning the planned procedure. The patient freely consents to the planned procedure. The patient is asked to call with any questions or concerns, or if there is a change in health status between now and the scheduled procedure. I have personally interviewed and examined this patient. I have read the information that the MA documented in this encounter. I spent 30 minutes in the visit, with more than 50% of the total vbxi-bm-tvnx time of the visit in counseling / coordination of care. Vidhi Atkinson RN MINE MOTOR ENGINEER.RENEE Atkinson RN MINE MOTOR ENGINEER.WEIGHT GUESSER 11/27/2017 10:13 AM Signed I suggest note eating less than 3 hours before bed. Consider elevating the head of the bed 6 inches, or using a wedge pillow. Continue the over the counter medication. Please follow the instructions for upper endoscopy. Your procedure will be with Dr. Galloway, on December 18. The endoscopy nurse will call you that Sunday with what time to arrive. You will stay on the Eliquis. Referring Provider: RADHA KAMARA [[id number]] Allergies As of Date: 11/27/2017 (No Known Allergies) Date Reviewed: 11/27/2017 Reviewed by: Anamika Ontiveros Ma - Fully Assessed Reason for Visit: Acid Reflux [Other] Primary Visit Diagnosis:Cough in adult [R05] Order(s):EGD [1261038] Order #: [id number] FUTURE Prescriptions as of 11/27/2017 Sig: METOPROLOL TARTRATE 50 MG TAB* Take 0.5 tablets by mouth twi* APIXABAN 5 MG TABLET Take 1 tablet by mouth twice * LOSARTAN 100 MG-HYDROCHLOROTH* Take 1 tablet by mouth once d* TRIAMCINOLONE ACETONIDE 0.025* Apply 1 application to affect* COMPOUNDED PRESCRIPTION CPAP @ 11 cm of water with hu* CHOLECALCIFEROL (VITAMIN D3) * Take 1 capsule by mouth once * * B-COMPLEX TABLET one tablet daily Problem List As Of Date 11/27/2017 Noted Resolved BENIGN HYPERTENSION [I10] INVALID FOR* SLEEP DISTURBANCE NOS [G47.9] INVALID FOR* STOMACH FUNCTION DIS NEC [K31.89, R10.13] INVALID FOR* ABDOMINAL PAIN GENERALIZED [R10.84] INVALID FOR* NAUSEA ALONE [R11.0] INVALID FOR* Anxiety [F41.9] INVALID FOR* Hypogonadism male [E29.1] INVALID FOR* TAE (obstructive sleep apnea) [G47.33] INVALID FOR* More... Elevated prostate specific antigen (PSA) [R97.2*INVALID FOR* Encounter for screening for malignant neoplasm *INVALID FOR* Attention deficit disorder [F98.8] INVALID FOR* PAF (paroxysmal atrial fibrillation) (HCC) [I48*INVALID FOR* Cough in adult [R05] INVALID FOR* More... Other instructions from your clinician: I suggest note eating less than 3 hours before bed. Consider elevating the head of the bed 6 inches, or using a wedge pillow. Continue the over the counter medication. Please follow the instructions for upper endoscopy. Your procedure will be with Dr. Galloway, on December 18. The endoscopy nurse will call you that Sunday with what time to arrive. You will stay on the Eliquis. Follow-up and Disposition History Recorded Encounter Status:Closed by VIDHI ATKINSON CNP on 11/27/17 MAGNESIUM Collected: 11/22/2017 Status: F Source: [place] 9:[address] [facility] REPOSITORY TYPE CODE TESTS RESULT OUT OF REFERENCE UNITS RANGE LAB MG 1.7-2.3 mg/dL Magnesium 2.0 Performed By: #### MG1 #### [facility] [address] [place], [place] [address] PROGRESS Observed: 11/22/2017 Status: COMPLETED Source: [place] 9:12 AM [facility] [place] REPOSITORY HNO ID: [id number] Author: Chito Mcclellan Service: (none) Author Type: Physician Type: Progress Notes Filed: 11/23/2017 8:14 AM Note Text: PERTINENT CARDIAC HISTORY PAF HTN HL TAE - CPAP Dilated aortic root Aortic insufficiency - mild ADHERENCE TO GUIDELINES LUCY-I or ARB for HF with prior LVEF<40 (NQF 0081) - N/A ASA or Plavix for ASHD (NQF 0067) - N/A Beta shad for ASHD with prior DE or prior LVEF<40 (NQF 0070) - N/A Beta shad for HF with prior LVEF<40 (NQF 0083) - N/A LUCY-I or ARB for ASHD with DM or prior LVEF<40 (NQF 0066) - N/A Statin therapy for ASHD or FHL or DM - N/A BMI documented and plan if >25 (NQF 0421) - lifestyle recommendation form Tobacco use screening and referral (NQF 0028) - lifestyle recommendation form Recommendation for whole food, plant based diet - lifestyle recommendation form CLINICAL IMPRESSION/PLAN: Silviano Rangel has atrial fibrillation of uncertain duration. He was in sinus rhythm earlier this year. He has a significant risk of thromboembolic complications. We discussed his Chads-Vasc score. I have encouraged him to consider the use of anticoagulant. He excepts recommendation thand would like to be on a DOAC. He will research the best deal he can get through his insurance and will likely be started on xarelto or Eliquis. I advised him to begin Lopressor 25 milligrams twice daily. We will check magnesium level. I've asked him to check his blood pressures daily and record. Adjustments may need to be made. He's been advised to decrease his caffeine. There is no contraindication to the use of drugs for erectile dysfunction. I would avoid use of Adderall if possible. This may need to be weighed against his perceived benefit. 4 assessment of possible underlying ischemia, he will undergo stress nuclear examination. Imaging stress test is necessary due to his resting EKG abnormalities. Dilated aorta appears to be stable, but will be followed. I will tentatively see him in 2 months or as needed. Thank you for asking me to see and make recommendations on Silviano Rangel. This report is available to you in the shared medical record. Written and verbal health teaching given to patient, patient verbalizes understanding and agrees with treatment plan. DIAGNOSIS FOR VISIT: PAF Hypertension HISTORY OF PRESENT ILLNESS Silviano Rangel is a 67-year-old gentleman who was seen in consultation at the request of Dr. Kamara, for recommendations regarding recent detection of atrial fibrillation. There is a strong family history of atrial fibrillation. He brings to the table strong feeling that warfarin is dangerous as his father had complications. However, there is also stroke in family. He has noted a decrease in exercise tolerance over the last several months. He's had no chest discomfort. He has been unaware of his heart rhythm. While seeing his sleep physician recently, irregular pulse was detected. . EKG was performed and showed evidence of atrial fibrillation. He has had no TIAs, amaurosis, claudication, syncope or near syncope. He is known to have obstructive sleep apnea and is on CPAP. He has a dilated aorta. ALLERGIES: ALLERGIES No Known Allergies CURRENT OUTPATIENT MEDICATIONS: losartan-hydrochlorothiazide (HYZAAR) 100-25 mg per tablet Take 1 tablet by mouth once daily. triamcinolone (KENALOG) 0.025 % cream Apply 1 application to affected area twice daily. COMPOUNDED PRESCRIPTION CPAP @ 11 cm of water with humidification. Mask (per patient preference) optional chin strap (if indicated) , filters, tubing, humidifier and lifetime supplies. Dx. TAE 327.23 Cholecalciferol, Vitamin D3, 1,000 unit cap Take 1 capsule by mouth once daily. vitamin b complex (B-COMPLEX) ORAL Tab one tablet daily PAST MEDICAL HISTORY Diagnosis Date - Abdominal pain, generalized - Asthma - Obstructive sleep apnea - Snoring - Unspecified essential hypertension Essential hypertension PAST SURGICAL HISTORY Procedure Laterality Date - APPENDECTOMY - CARPAL TUNNEL RIGHT WRIST 01/04/10 - COLONOSCOP W/ OR W/O [facility] SPEC 01/20/07 screening thru [facility] - COLONOSCOP W/ OR W/O [facility] SPEC 07/25/2016 normal colonoscopy 10 year follow up - EGD W/O OR W/BRUSH/WASH 06/23/2008 EGD - LAP CHOLECYSTECT/CHOLANGIOGRAPHY 07/07/08 - LEFT WRIST CARPAL TUNNEL ONLY 01/04/10 - PAST SURGICAL HISTORY OF 01/2004 HEEL SPUR left - PAST SURGICAL HISTORY OF 11/16/2016 Nose procedure, by Dr. Chua - PAST SURGICAL HISTORY OF N/A 05/23/2017 Prostectomy - Dr. Cohen - REMOVAL OF HEEL SPUR 12/20/09 right heel - REMOVAL OF TONSILS,<12 Y/O Tonsillectomy - REPAIR ROTATOR CUFF,ACUTE Rotator cuff repair - ROTATOR CUFF REPAIR 2011 right FAMILY HISTORY Problem Relation Age of Onset - Heart Mother - Stroke Mother - None Father - None Brother Social History Marital status: Spouse name: Years of education: Number of children: Social History Main Topics Smoking status: Never Smoker Smokeless tobacco: Never Used Comment: smoked a year about 40 years ago Alcohol use: No Drug use: No Sexual activity: Yes Partners with: Female REVIEW OF SYSTEMS: General: No chills, fever, weight loss, night sweats. SHEENT: No change in vision or auditory acuity. Respiratory: No productive cough. Cardiac: As noted above. GI: No melena. : No dysuria. Musculoskeletal: No myalgias. Neurologic: No strokes. Psychiatric: No depression. Endocrine: No diabetes. Hematologic: No anemia. PHYSICAL EXAMINATION: S/he is alert and in no distress VITAL SIGNS: BP 137/82 Pulse 79 Ht 6' 0 (1.83m) Wt 253 lb (114.8kg) BMI 34.31 kg/(m2). SHEENT: Skin is warm and dry. Pupils are round and reactive. Retinal vessels are grossly unremarkable. No xanthelasmas appreciated. Pharynx is benign. There is no oral cyanosis. Neck: supple. No adenopathy or thyroid enlargement. Chest: Clear to percussion and auscultation. Trachea is midline. Air entry is equal. There is no chest wall tenderness. Cardiac: Irregularly irregular rhythm. S1 and S2 are normal. PMI is nondisplaced. Is a 1/6 systolic ejection. No click is heard. Carotids are brisk without bruits. JVP is less than 10 cm. Abdomen: Soft and nontender. Examination is comfortable aspirin obesity. There are no pulsatile masses or bruits. No liver enlargement. Bowel sounds are active. : Deferred. Extremities: No edema. Pulses are intact and symmetrical. No clubbing or cyanosis. No femoral bruits. Neurologic: Grossly normal motor and sensory. S/he is alert and oriented x4. Musculoskeletal: No joint deformities. Recent echocardiogram was personally reviewed. Aortic root is dilated but stable since 2007. Ejection fraction is normal. There is no significant valvular disease. Previous Holter monitor showed atrial tachycardia but no evidence of atrial fibrillation. EKG shows atrial fibrillation with rapid ventricular response. There is right bundle branch clock. Atrial fibrillation is new since 2013. Recent labs were reviewed. CBC is normal. Renal function is normal. LDL was 126. TSH is normal. Magnesium level was not performed. Electronically Signed: Chito Mcclellan MD November 22, 2017 9:12 AM CC: Radha Kamara MD CNOV Observed: 11/22/2017 Status: COMPLETED Source: [place] 8:[address] [facility] REPOSITORY Office Visit ([facility]) SILVIANO RANGEL ([id number]) 1950 M Date Time Provider Department 11/22/17 8:15 AM CHITO MCCLELLAN [facility] During your visit today, we recorded the following information about you: Pulse Blood pressure Weight Height 79/minute 137/82 114.8 kg 1.829 m Chito Mcclellan MD 11/23/2017 8:14 AM Signed PERTINENT CARDIAC HISTORY PAF HTN HL TAE - CPAP Dilated aortic root Aortic insufficiency - mild ADHERENCE TO GUIDELINES LUCY-I or ARB for HF with prior LVEF<40 (NQF 0081) - N/A ASA or Plavix for ASHD (NQF 0067) - N/A Beta shad for ASHD with prior DE or prior LVEF<40 (NQF 0070) - N/A Beta shad for HF with prior LVEF<40 (NQF 0083) - N/A LUCY-I or ARB for ASHD with DM or prior LVEF<40 (NQF 0066) - N/A Statin therapy for ASHD or FHL or DM - N/A BMI documented and plan if >25 (NQF 0421) - lifestyle recommendation form Tobacco use screening and referral (NQF 0028) - lifestyle recommendation form Recommendation for whole food, plant based diet - lifestyle recommendation form CLINICAL IMPRESSION/PLAN: Silviano Rangel has atrial fibrillation of uncertain duration. He was in sinus rhythm earlier this year. He has a significant risk of thromboembolic complications. We discussed his Chads-Vasc score. I have encouraged him to consider the use of anticoagulant. He excepts recommendation randeed would like to be on a DOAC. He will research the best deal he can get through his insurance and will likely be started on xarelto or Eliquis. I advised him to begin Lopressor 25 milligrams twice daily. We will check magnesium level. I've asked him to check his blood pressures daily and record. Adjustments may need to be made. He's been advised to decrease his caffeine. There is no contraindication to the use of drugs for erectile dysfunction. I would avoid use of Adderall if possible. This may need to be weighed against his perceived benefit. 4 assessment of possible underlying ischemia, he will undergo stress nuclear examination. Imaging stress test is necessary due to his resting EKG abnormalities. Dilated aorta appears to be stable, but will be followed. I will tentatively see him in 2 months or as needed. Thank you for asking me to see and make recommendations on Silviano Rangel. This report is available to you in the shared medical record. Written and verbal health teaching given to patient, patient verbalizes understanding and agrees with treatment plan. DIAGNOSIS FOR VISIT: PAF Hypertension HISTORY OF PRESENT ILLNESS Silviano Rangel is a 67-year-old gentleman who was seen in consultation at the request of Dr. Kamara, for recommendations regarding recent detection of atrial fibrillation. There is a strong family history of atrial fibrillation. He brings to the table strong feeling that warfarin is dangerous as his father had complications. However, there is also stroke in family. He has noted a decrease in exercise tolerance over the last several months. He's had no chest discomfort. He has been unaware of his heart rhythm. While seeing his sleep physician recently, irregular pulse was detected. . EKG was performed and showed evidence of atrial fibrillation. He has had no TIAs, amaurosis, claudication, syncope or near syncope. He is known to have obstructive sleep apnea and is on CPAP. He has a dilated aorta. ALLERGIES: ALLERGIES No Known Allergies CURRENT OUTPATIENT MEDICATIONS: losartan-hydrochlorothiazide (HYZAAR) 100-25 mg per tablet Take 1 tablet by mouth once daily. triamcinolone (KENALOG) 0.025 % cream Apply 1 application to affected area twice daily. COMPOUNDED PRESCRIPTION CPAP @ 11 cm of water with humidification. Mask (per patient preference) optional chin strap (if indicated) , filters, tubing, humidifier and lifetime supplies. Dx. TAE 327.23 Cholecalciferol, Vitamin D3, 1,000 unit cap Take 1 capsule by mouth once daily. vitamin b complex (B-COMPLEX) ORAL Tab one tablet daily PAST MEDICAL HISTORY Diagnosis Date - Abdominal pain, generalized - Asthma - Obstructive sleep apnea - Snoring - Unspecified essential hypertension Essential hypertension PAST SURGICAL HISTORY Procedure Laterality Date - APPENDECTOMY - CARPAL TUNNEL RIGHT WRIST 01/04/10 - COLONOSCOP W/ OR W/O [facility] SPEC 01/20/07 screening thru [facility] - COLONOSCOP W/ OR W/O [facility] SPEC 07/25/2016 normal colonoscopy 10 year follow up - EGD W/O OR W/BRUSH/WASH 06/23/2008 EGD - LAP CHOLECYSTECT/CHOLANGIOGRAPHY 07/07/08 - LEFT WRIST CARPAL TUNNEL ONLY 01/04/10 - PAST SURGICAL HISTORY OF 01/2004 HEEL SPUR left - PAST SURGICAL HISTORY OF 11/16/2016 Nose procedure, by Dr. Chua - PAST SURGICAL HISTORY OF N/A 05/23/2017 Prostectomy - Dr. Cohen - REMOVAL OF HEEL SPUR 12/20/09 right heel - REMOVAL OF TONSILS,<12 Y/O Tonsillectomy - REPAIR ROTATOR CUFF,ACUTE Rotator cuff repair - ROTATOR CUFF REPAIR 2011 right FAMILY HISTORY Problem Relation Age of Onset - Heart Mother - Stroke Mother - None Father - None Brother Social History Marital status: Spouse name: Years of education: Number of children: Social History Main Topics Smoking status: Never Smoker Smokeless tobacco: Never Used Comment: smoked a year about 40 years ago Alcohol use: No Drug use: No Sexual activity: Yes Partners with: Female REVIEW OF SYSTEMS: General: No chills, fever, weight loss, night sweats. SHEENT: No change in vision or auditory acuity. Respiratory: No productive cough. Cardiac: As noted above. GI: No melena. : No dysuria. Musculoskeletal: No myalgias. Neurologic: No strokes. Psychiatric: No depression. Endocrine: No diabetes. Hematologic: No anemia. PHYSICAL EXAMINATION: S/he is alert and in no distress VITAL SIGNS: BP 137/82 Pulse 79 Ht 6' 0 (1.83m) Wt 253 lb (114.8kg) BMI 34.31 kg/(m2). SHEENT: Skin is warm and dry. Pupils are round and reactive. Retinal vessels are grossly unremarkable. No xanthelasmas appreciated. Pharynx is benign. There is no oral cyanosis. Neck: supple. No adenopathy or thyroid enlargement. Chest: Clear to percussion and auscultation. Trachea is midline. Air entry is equal. There is no chest wall tenderness. Cardiac: Irregularly irregular rhythm. S1 and S2 are normal. PMI is nondisplaced. Is a 1/6 systolic ejection. No click is heard. Carotids are brisk without bruits. JVP is less than 10 cm. Abdomen: Soft and nontender. Examination is comfortable aspirin obesity. There are no pulsatile masses or bruits. No liver enlargement. Bowel sounds are active. : Deferred. Extremities: No edema. Pulses are intact and symmetrical. No clubbing or cyanosis. No femoral bruits. Neurologic: Grossly normal motor and sensory. S/he is alert and oriented x4. Musculoskeletal: No joint deformities. Recent echocardiogram was personally reviewed. Aortic root is dilated but stable since 2007. Ejection fraction is normal. There is no significant valvular disease. Previous Holter monitor showed atrial tachycardia but no evidence of atrial fibrillation. EKG shows atrial fibrillation with rapid ventricular response. There is right bundle branch clock. Atrial fibrillation is new since 2012. Recent labs were reviewed. CBC is normal. Renal function is normal. LDL was 126. TSH is normal. Magnesium level was not performed. Electronically Signed: Chito Mcclellan MD November 22, 2017 9:12 AM CC: MD Chito Dozier MD 11/22/2017 9:13 AM Signed LIFESTYLE CHANGE A healthy lifestyle is the most important component of your overall treatment plan. Please give serious thought to the following areas and commit to making manager terminal changes. EAT A WHOLE FOOD, PLANT BASED DIET The nutrition your body gets is more important than the medicine you take. What matters most is the overall way you eat. We encourage you to minimize the use of animal products (which include dairy and all meats except fatty fish) and use whole, unprocessed plant foods to provide your protein, vitamins and other nutrients. We have a lot of information to share with you on this topic. This is not a diet. It is a way of life that you will keep with you. EXERCISE REGULARLY It is not important to spend hours in the gym, lifting weights and perspiring heavily. A total of 2-3 hours per week of aerobic (causing you to be moderately short of breath) exercise is sufficient to improve your health. Talk to us before you begin a new exercise program, if you have heart disease or experience shortness of breath or chest pain. REDUCE STRESS Chronic emotional and physical stress leads to disease. Ways of reducing stress include meditation, visualization, prayer, yoga and other forms of relaxation therapy. Consistency is the guzman. Find a technique that works for you and do it every day. CULTIVATE RELATIONSHIPS Loneliness and isolation have a major negative impact on health. Seek out others who can love, care for and nurture you. Avoid hurtful relationships. MAINTAIN IDEAL BODY WEIGHT The best way to do this is to do all the things above. Our bodies naturally find the right weight if we keep moving and feed ourselves the right food. If your BMI is greater than 25, we strongly recommend a referral to a weight management program. Please speak to us or your family physician about available programs. AVOID NICOTINE IN ALL FORMS This includes all tobacco products, whether chewed, smoked, vaped, or rubbed on the skin. Smoking cessation programs, which can make use of tobacco substitutes, medications to suppress cravings and behavior management, are available. Please contact your family physician about programs in your area. Referring Provider: RADHA KAMARA [[id number]] Allergies As of Date: 11/22/2017 (No Known Allergies) Date Reviewed: 11/22/2017 Reviewed by: Narcisa Capone MA - Fully Assessed Primary Visit Diagnosis:Essential hypertension [I10] Other Visit Diagnoses:PAF (paroxysmal atrial fibrillation) (HCC) [I48.0] Dyspnea on exertion [R06.09] Order(s):metoprolol tartrate, short acting, (LOPRESSOR) 50 mg tabletTake 0.5 tablets by mouth twice daily.Disp: 30 tabletRfl: 6 MAGNESIUM BLD [SQMG1] Order #: [id number] FUTURE IV DISCONTINUE [[id number]] Order #: [id number]: 1 IV START - SPECIFY [8309166] Order #: [id number]: 1 EXERCISE STRESS W/NUC IMAGING [[id number]] Order #: [id number]: 1 NM CARDIAC PERF STRESS/EXERCISE [[id number]] Order #: [id number] FUTURE Prescriptions as of 11/22/2017 Sig: LOSARTAN 100 MG-HYDROCHLOROTH* Take 1 tablet by mouth once d* TRIAMCINOLONE ACETONIDE 0.025* Apply 1 application to affect* COMPOUNDED PRESCRIPTION CPAP @ 11 cm of water with hu* CHOLECALCIFEROL (VITAMIN D3) * Take 1 capsule by mouth once * * B-COMPLEX TABLET one tablet daily METOPROLOL TARTRATE 50 MG TAB* Take 0.5 tablets by mouth twi* X RIVAROXABAN 20 MG TABLET Take 1 tablet by mouth daily * Problem List As Of Date 11/22/2017 Noted Resolved BENIGN HYPERTENSION [I10] INVALID FOR* SLEEP DISTURBANCE NOS [G47.9] INVALID FOR* STOMACH FUNCTION DIS NEC [K31.89, R10.13] INVALID FOR* ABDOMINAL PAIN GENERALIZED [R10.84] INVALID FOR* NAUSEA ALONE [R11.0] INVALID FOR* Anxiety [F41.9] INVALID FOR* Hypogonadism male [E29.1] INVALID FOR* TAE (obstructive sleep apnea) [G47.33] INVALID FOR* More... Elevated prostate specific antigen (PSA) [R97.2*INVALID FOR* Encounter for screening for malignant neoplasm *INVALID FOR* Attention deficit disorder [F98.8] INVALID FOR* Other instructions from your clinician: LIFESTYLE CHANGE A healthy lifestyle is the most important component of your overall treatment plan. Please give serious thought to the following areas and commit to making manager terminal changes. EAT A WHOLE FOOD, PLANT BASED DIET The nutrition your body gets is more important than the medicine you take. What matters most is the overall way you eat. We encourage you to minimize the use of animal products (which include dairy and all meats except fatty fish) and use whole, unprocessed plant foods to provide your protein, vitamins and other nutrients. We have a lot of information to share with you on this topic. This is not a diet. It is a way of life that you will keep with you. EXERCISE REGULARLY It is not important to spend hours in the gym, lifting weights and perspiring heavily. A total of 2-3 hours per week of aerobic (causing you to be moderately short of breath) exercise is sufficient to improve your health. Talk to us before you begin a new exercise program, if you have heart disease or experience shortness of breath or chest pain. REDUCE STRESS Chronic emotional and physical stress leads to disease. Ways of reducing stress include meditation, visualization, prayer, yoga and other forms of relaxation therapy. Consistency is the guzman. Find a technique that works for you and do it every day. CULTIVATE RELATIONSHIPS Loneliness and isolation have a major negative impact on health. Seek out others who can love, care for and nurture you. Avoid hurtful relationships. MAINTAIN IDEAL BODY WEIGHT The best way to do this is to do all the things above. Our bodies naturally find the right weight if we keep moving and feed ourselves the right food. If your BMI is greater than 25, we strongly recommend a referral to a weight management program. Please speak to us or your family physician about available programs. AVOID NICOTINE IN ALL FORMS This includes all tobacco products, whether chewed, smoked, vaped, or rubbed on the skin. Smoking cessation programs, which can make use of tobacco substitutes, medications to suppress cravings and behavior management, are available. Please contact your family physician about programs in your area. Prescriptions ordered this encounter Disp Refills Start End METOPROLOL TARTRATE 50 MG TABLET 30 t* 6 11/22/2017 Route: ORAL Sig: Take 0.5 tablets by mouth twice daily. RIVAROXABAN 20 MG TABLET 30 t* 6 11/22/2017 11/22/2017 Route: ORAL Sig: Take 1 tablet by mouth daily with dinner. Follow-up and Disposition History Recorded Encounter Status:Closed by CHITO MCCLELLAN MD on 11/23/17 PROGRESS Observed: 11/14/2017 Status: COMPLETED Source: [place] 8:[address] [facility] REPOSITORY HNO ID: [id number] Author: Radha Kamara Service: (none) Author Type: Physician Type: Progress Notes Filed: 11/15/2017 2:35 PM Note Text: Chief Complaint Patient presents with: Recheck HPI Silviano Rangel is a 67 year old male who presents here today for a follow up. Recently back from vacation in [place]. Weather was in the 90's, he doesn't mind the heat. Staying busy at home as well. HTN - Feels that his edema is not as well controlled then previous medication (taking 2 pills). Thinks his dose may need increased. Denies checking BP at home and having no symptoms of chest pain or dizziness. Admits to sob due to flare ups with asthma. Currently taking Prinzide 10-25 mg 1 tab po once daily Asthma - Notes that he is trying to use OTC PPI (Prilosec) to help with his dry cough with no phlegm. He feels this does help with the cough at times as well as him reducing acidic foods. Discussed this with a family member who had these same issues and a scope performed at ENT. Follows with Oral And Maxillofacial Pathologist, Dr. El at [facility]. Focus - Notified to quit taking Adderall ROS due to Pulmonary diagnosing with irregular heart beat. Pt states that he never took the full dose or the 30 mg bid, but whenever he used it he was able to focus much better. CPAP - Follows with Pulmonary. Afib - Strong FH of atrial fibrillation in the men and heart disease on mother's side. Feels that Coumadin was the downfall of his father. He was just diagnosed with a fib while seeing Pulm. Denies dizziness, SOB, chest pain. Past medical history, appointments, medications, allergies reviewed. Previous Medical History PAST MEDICAL HISTORY Diagnosis Date - Abdominal pain, generalized - Asthma - Obstructive sleep apnea - Snoring - Unspecified essential hypertension Essential hypertension Previous Surgical History PAST SURGICAL HISTORY Procedure Laterality Date - APPENDECTOMY - CARPAL TUNNEL RIGHT WRIST 01/04/10 - COLONOSCOP W/ OR W/O [facility] SPEC 01/20/07 screening thru [facility] - COLONOSCOP W/ OR W/O [facility] SPEC 07/25/2016 normal colonoscopy 10 year follow up - EGD W/O OR W/BRUSH/WASH 06/23/2008 EGD - LAP CHOLECYSTECT/CHOLANGIOGRAPHY 07/07/08 - LEFT WRIST CARPAL TUNNEL ONLY 01/04/10 - PAST SURGICAL HISTORY OF 01/2004 HEEL SPUR left - PAST SURGICAL HISTORY OF 11/16/2016 Nose procedure, by Dr. Chua - PAST SURGICAL HISTORY OF N/A 05/23/2017 Prostectomy - Dr. Cohen - REMOVAL OF HEEL SPUR 12/20/09 right heel - REMOVAL OF TONSILS,<12 Y/O Tonsillectomy - REPAIR ROTATOR CUFF,ACUTE Rotator cuff repair - ROTATOR CUFF REPAIR 2010 right Family History FAMILY HISTORY Problem Relation Age of Onset - Heart Mother - Stroke Mother - None Father - None Brother Patient Allergies ALLERGIES No Known Allergies Current Medications Current Outpatient Prescriptions on File Prior to Visit: lisinopril-hydrochlorothiazide (PRINZIDE,ZESTORETIC) 10-12.5 mg per tablet Take 1 tablet by mouth once daily. triamcinolone (KENALOG) 0.025 % cream Apply 1 application to affected area twice daily. COMPOUNDED PRESCRIPTION CPAP @ 11 cm of water with humidification. Mask (per patient preference) optional chin strap (if indicated) , filters, tubing, humidifier and lifetime supplies. Dx. TAE 327.23 Cholecalciferol, Vitamin D3, 1,000 unit cap Take 1 capsule by mouth once daily. vitamin b complex (B-COMPLEX) ORAL Tab one tablet daily [START ON 11/17/2017] Amphetamine-Dextroamphetamine (ADDERALL) 30 mg tablet Take 1 tablet by mouth twice daily for 30 days.Earliest Fill Date: 11/17/17 Amphetamine-Dextroamphetamine (ADDERALL) 30 mg tablet Take 1 tablet by mouth twice daily for 30 days.Earliest Fill Date: 06/08/17 No current facility-administered medications on file prior to visit. Social History Social History Marital status: Spouse name: Years of education: Number of children: Social History Main Topics Smoking status: Never Smoker Smokeless tobacco: Never Used Comment: smoked a year about 40 years ago Alcohol use: No Drug use: No Sexual activity: Yes Partners with: Female EXAM: BP 142/94 (BP Site: Left Arm, BP Position: Sitting, BP Cuff Size: Regular Adult) Pulse 84 Resp 16 Wt 115.8 kg (255 lb 3.2 oz) BMI 34.61 kg/m? General Appearance: Well appearing, alert, in no acute distress, well-hydrated, well nourished., Obese. Lungs: Lungs clear to auscultation. No wheezing, rhonchi, rales. Heart: RRR without murmur, gallop, or rubs. No ectopy, Positive findings: irregular rhythm - atrial fibrillation. Health Maintenance List HEPATITIS C SCREENING due on 1995 ZOSTER VACCINE (SHINGRIX)(1 of 2) due on 2001 PNEUMOVAX AGE 65 AND OVER WITH 5YR LOOKBACK(1) due on 2016 INFLUENZA(1) due on 01/05/2018 DIABETES SCREEN due on 06/18/2020 LIPID SCREEN due on 06/18/2022 DTAP,TDAP,TD(2 - Td) due on 06/21/2026 COLORECTAL CANCER SCREENING,SEE MODIFIER due on 07/25/2026 PROSTATE CANCER SCREENING DISCUSSION Completed ADULT PREVNAR-13 Completed Data reviewed Multiple tests run ASSESSMENT/PLAN: 1. Essential hypertension, benign - ICD9: 401.1, ICD10: I10 (primary diagnosis) - fair control - Continue current medication(s) - Recommend home blood pressure monitoring, to bring results in on next visit - Goal of BP <130/80 2. Attention deficit disorder, unspecified hyperactivity presence - ICD9: 314.00, ICD10: F98.8 - Discontinue Adderall due to being a stimulant 3. Atrial fibrillation, unspecified type (HCC) - ICD9: 427.31, ICD10: I48.91 - Consult to Cardiology 4. TAE (obstructive sleep apnea) - ICD9: 327.23, ICD10: G47.33 - Continue following with Pulmonary 5. Cough - ICD9: 786.2, ICD10: R05 - Cardiology 6. SOB (shortness of breath) - ICD9: 786.05, ICD10: R06.02 - Cardiology 1 mo f/u Radha Kamara MD The documentation for this note was completed by Khadra Mena Ma acting as scribe for Radha Kamara MD. November 14, 2017 8:08 AM. CNOV Observed: 11/14/2017 Status: COMPLETED Source: [place] 8:[address] [facility] REPOSITORY Office Visit (FAMPWS) SILVIANO RANGEL ([id number]) 1950 M Date Time Provider Department 11/14/17 8:00 AM RADHA KAMARA During your visit today, we recorded the following information about you: Pulse Respiration Blood pressure Weight 84/minute 16/minute 142/94 115.8 kg Radha Kamara MD 11/15/2017 2:35 PM Signed Chief Complaint Patient presents with: Recheck HPI Silviano Peace Rangel is a 67 year old male who presents here today for a follow up. Recently back from vacation in [place]. Weather was in the 90's, he doesn't mind the heat. Staying busy at home as well. HTN - Feels that his edema is not as well controlled then previous medication (taking 2 pills). Thinks his dose may need increased. Denies checking BP at home and having no symptoms of chest pain or dizziness. Admits to sob due to flare ups with asthma. Currently taking Prinzide 10-25 mg 1 tab po once daily Asthma - Notes that he is trying to use OTC PPI (Prilosec) to help with his dry cough with no phlegm. He feels this does help with the cough at times as well as him reducing acidic foods. Discussed this with a family member who had these same issues and a scope performed at ENT. Follows with Oral And Maxillofacial Pathologist, Dr. El at [facility]. Focus - Notified to quit taking Adderall ROS due to Pulmonary diagnosing with irregular heart beat. Pt states that he never took the full dose or the 30 mg bid, but whenever he used it he was able to focus much better. CPAP - Follows with Pulmonary. Afib - Strong FH of atrial fibrillation in the men and heart disease on mother's side. Feels that Coumadin was the downfall of his father. He was just diagnosed with a fib while seeing Pulm. Denies dizziness, SOB, chest pain. Past medical history, appointments, medications, allergies reviewed. Previous Medical History PAST MEDICAL HISTORY Diagnosis Date - Abdominal pain, generalized - Asthma - Obstructive sleep apnea - Snoring - Unspecified essential hypertension Essential hypertension Previous Surgical History PAST SURGICAL HISTORY Procedure Laterality Date - APPENDECTOMY - CARPAL TUNNEL RIGHT WRIST 01/04/10 - COLONOSCOP W/ OR W/O [facility] SPEC 01/20/07 screening thru [facility] - COLONOSCOP W/ OR W/O [facility] SPEC 07/25/2016 normal colonoscopy 10 year follow up - EGD W/O OR W/BRUSH/WASH 06/23/2008 EGD - LAP CHOLECYSTECT/CHOLANGIOGRAPHY 07/07/08 - LEFT WRIST CARPAL TUNNEL ONLY 01/04/10 - PAST SURGICAL HISTORY OF 01/2004 HEEL SPUR left - PAST SURGICAL HISTORY OF 11/16/2016 Nose procedure, by Dr. Chua - PAST SURGICAL HISTORY OF N/A 05/23/2017 Prostectomy - Dr. Cohen - REMOVAL OF HEEL SPUR 12/20/09 right heel - REMOVAL OF TONSILS,<12 Y/O Tonsillectomy - REPAIR ROTATOR CUFF,ACUTE Rotator cuff repair - ROTATOR CUFF REPAIR 2011 right Family History FAMILY HISTORY Problem Relation Age of Onset - Heart Mother - Stroke Mother - None Father - None Brother Patient Allergies ALLERGIES No Known Allergies Current Medications Current Outpatient Prescriptions on File Prior to Visit: lisinopril-hydrochlorothiazide (PRINZIDE,ZESTORETIC) 10-12.5 mg per tablet Take 1 tablet by mouth once daily. triamcinolone (KENALOG) 0.025 % cream Apply 1 application to affected area twice daily. COMPOUNDED PRESCRIPTION CPAP @ 11 cm of water with humidification. Mask (per patient preference) optional chin strap (if indicated) , filters, tubing, humidifier and lifetime supplies. Dx. TAE 327.23 Cholecalciferol, Vitamin D3, 1,000 unit cap Take 1 capsule by mouth once daily. vitamin b complex (B-COMPLEX) ORAL Tab one tablet daily [START ON 11/17/2017] Amphetamine-Dextroamphetamine (ADDERALL) 30 mg tablet Take 1 tablet by mouth twice daily for 30 days.Earliest Fill Date: 11/17/17 Amphetamine-Dextroamphetamine (ADDERALL) 30 mg tablet Take 1 tablet by mouth twice daily for 30 days.Earliest Fill Date: 06/08/17 No current facility-administered medications on file prior to visit. Social History Social History Marital status: Spouse name: Years of education: Number of children: Social History Main Topics Smoking status: Never Smoker Smokeless tobacco: Never Used Comment: smoked a year about 40 years ago Alcohol use: No Drug use: No Sexual activity: Yes Partners with: Female EXAM: BP 142/94 (BP Site: Left Arm, BP Position: Sitting, BP Cuff Size: Regular Adult) Pulse 84 Resp 16 Wt 115.8 kg (255 lb 3.2 oz) BMI 34.61 kg/m? General Appearance: Well appearing, alert, in no acute distress, well-hydrated, well nourished., Obese. Lungs: Lungs clear to auscultation. No wheezing, rhonchi, rales. Heart: RRR without murmur, gallop, or rubs. No ectopy, Positive findings: irregular rhythm - atrial fibrillation. Health Maintenance List HEPATITIS C SCREENING due on 1995 ZOSTER VACCINE (SHINGRIX)(1 of 2) due on 2001 PNEUMOVAX AGE 65 AND OVER WITH 5YR LOOKBACK(1) due on 2016 INFLUENZA(1) due on 01/05/2018 DIABETES SCREEN due on 06/18/2020 LIPID SCREEN due on 06/18/2022 DTAP,TDAP,TD(2 - Td) due on 06/21/2026 COLORECTAL CANCER SCREENING,SEE MODIFIER due on 07/25/2026 PROSTATE CANCER SCREENING DISCUSSION Completed ADULT PREVNAR-13 Completed Data reviewed Multiple tests run ASSESSMENT/PLAN: 1. Essential hypertension, benign - ICD9: 401.1, ICD10: I10 (primary diagnosis) - fair control - Continue current medication(s) - Recommend home blood pressure monitoring, to bring results in on next visit - Goal of BP <130/80 2. Attention deficit disorder, unspecified hyperactivity presence - ICD9: 314.00, ICD10: F98.8 - Discontinue Adderall due to being a stimulant 3. Atrial fibrillation, unspecified type (HCC) - ICD9: 427.31, ICD10: I48.91 - Consult to Cardiology 4. TAE (obstructive sleep apnea) - ICD9: 327.23, ICD10: G47.33 - Continue following with Pulmonary 5. Cough - ICD9: 786.2, ICD10: R05 - Cardiology 6. SOB (shortness of breath) - ICD9: 786.05, ICD10: R06.02 - Cardiology 1 mo f/u Radha Kamara MD The documentation for this note was completed by Khadra Mena Ma acting as scribe for Radha Kamara MD. November 14, 2017 8:08 AM. Referring Provider: RADHA KAMARA [[id number]] Allergies As of Date: 11/14/2017 (No Known Allergies) Date Reviewed: 10/09/2017 Reviewed by: Ashley Jesus - Fully Assessed Reason for Visit: Recheck [92] Primary Visit Diagnosis:Essential hypertension, benign [I10] Other Visit Diagnoses:Attention deficit disorder, unspecified hyperactivity presence [F98.8] Atrial fibrillation, unspecified type (HCC) [I48.91] TAE (obstructive sleep apnea) [G47.33] Cough [R05] SOB (shortness of breath) [R06.02] Order(s):CONSULT TO CARDIOLOGY [9004] Order #: [id number]: 1 CONSULT TO GASTROENTEROLOGY [1891] Order #: [id number]: 1 losartan-hydrochlorothiazide (HYZAAR) 100-25 mg per tabletTake 1 tablet by mouth once daily.Disp: 30 tabletRfl: 2 Prescriptions as of 11/14/2017 Sig: TRIAMCINOLONE ACETONIDE 0.025* Apply 1 application to affect* COMPOUNDED PRESCRIPTION CPAP @ 11 cm of water with hu* CHOLECALCIFEROL (VITAMIN D3) * Take 1 capsule by mouth once * * B-COMPLEX TABLET one tablet daily LOSARTAN 100 MG-HYDROCHLOROTH* Take 1 tablet by mouth once d* Problem List As Of Date 11/14/2017 Noted Resolved BENIGN HYPERTENSION [I10] INVALID FOR* SLEEP DISTURBANCE NOS [G47.9] INVALID FOR* STOMACH FUNCTION DIS NEC [K31.89, R10.13] INVALID FOR* ABDOMINAL PAIN GENERALIZED [R10.84] INVALID FOR* NAUSEA ALONE [R11.0] INVALID FOR* Anxiety [F41.9] INVALID FOR* Hypogonadism male [E29.1] INVALID FOR* TAE (obstructive sleep apnea) [G47.33] INVALID FOR* More... Elevated prostate specific antigen (PSA) [R97.2*INVALID FOR* Encounter for screening for malignant neoplasm *INVALID FOR* Attention deficit disorder [F98.8] INVALID FOR* Prescriptions ordered this encounter Disp Refills Start End LOSARTAN 100 MG-HYDROCHLOROTHIAZIDE * 30 t* 2 11/14/2017 Route: ORAL Sig: Take 1 tablet by mouth once daily. Medications Discontinued During This Encounter methylPREDNISolone (MEDROL, JUMANA,) 4 * 1 Pa* 1 10/18/2017 11/14/2017 Sig: Use orally as directed. Disc: Course of therapy completed Amphetamine-Dextroamphetamine (ADDER* 60 t* 0 11/17/2017 11/14/2017 Class: Print RX Route: ORAL Sig: Take 1 tablet by mouth twice daily for 30 days. Earliest Fill Date: 11/17/17 Disc: Reason for discontinue is not on file. Amphetamine-Dextroamphetamine (ADDER* 60 t* 0 06/08/2017 11/14/2017 Class: Print RX Route: ORAL Sig: Take 1 tablet by mouth twice daily for 30 days. Earliest Fill Date: 06/08/17 Disc: Reason for discontinue is not on file. lisinopril-hydrochlorothiazide (PRIN* 90 t* 1 09/18/2017 11/14/2017 Route: ORAL Sig: Take 1 tablet by mouth once daily. Disc: Changing Therapy/Dosage Form Disposition: Return in about 4 weeks (around 12/12/2017). Follow-up and Disposition History Recorded Encounter Status:Closed by RADHA KAMARA MD on 11/15/17 CNCO Observed: 10/29/2017 Status: COMPLETED Source: [place] 12:00 AM [facility] [place] REPOSITORY Letter Text [address] [place] [address] [phone] 10/29/2017 Silviano Rangel [address] [facility] [address] Dear Mr. Rangel: Due to a change in the provider's schedule, it has been necessary to reschedule your appointment. Enclosed please find a new appointment reminder that will replace the one previously sent to you. If this appointment is not convenient for you, please contact our office at [phone]. Thank you for choosing the [facility] as your Healthcare Provider. Sincerely, Appointment Office Department of Family Medicine Enclosure DOWNTIME REPORT Observed: 10/25/2017 Status: F Source: [place] 2:[address] [facility] REPOSITORY [facility] Medical Records Department [address] [place] [address] Downtime Report MR#: [id number] Acct: [id number] Name: SILVIANO RANGEL Rep #: [id number] : 1950 67 From: [facility] PCP: Radha Kamara MD Status: REG CLI This patient was seen during an EMR downtime October 08, 2017 - October 15, 2017. This patient may have a combination of paper and electronic documentation or all paper documentation. All documentation is viewable within the e-chart portion of [employer] for each patient visit. PROGRESS Observed: 10/24/2017 Status: COMPLETED Source: [place] 12:[address] [facility] REPOSITORY HNO ID: [id number] Author: Marisa Ta LPN Service: (none) Author Type: (none) Type: Progress Notes Filed: 10/24/2017 1:23 PM Note Text: Pt presents to have an EKG performed ordered by Dr Jesus. Pt denies problems at this time. Pt tolerated procedure well. Marisa Ta LPN ECG COMPLETE W Observed: 10/24/2017 Status: F Source: [place] INTERPRETATION 12:[address] [facility] REPOSITORY NAME : SILVIANO RANGEL PID : [id number] : 1950 Gender : Male Race : ORD : [id number] Procedure Date : Oct 24 2017 12:04:14 Edit Date : Oct 25 2017 08:10:48 Diagnosis:ATRIAL FIBRILLATION WITH RAPID VENTRICULAR RESPONSE COMPLETE RIGHT BUNDLE BRANCH BLOCK ABNORMAL ECG Confirmed by TAWANDA ESPITIA D.O. ([id number]) on 10/25/2017 8:10:41 AM Ventricular Rate : 123 BPM Atrial Rate : 110 BPM QRS Duration : 116 ms Q-T Interval : 286 ms QTC Calculation(Bezet) : 409 ms R [place] : 61 degrees T [place] : 18 degrees Test Reason : Location : 185 : [facility] Overread By : TAWANDA ESPITIA D.O. Edited By : TAWANDA ESPITIA D.O. Referred By : ASHLEY JESUS Acquired by : IRINEO TANG LPN Observed: 10/24/2017 Status: COMPLETED Source: [place] 11:[address] [facility] REPOSITORY Nurse Visit (FAMPWS) RANGELSILVIANO Peace ([id number]) 1950 M Date Time Provider Department 10/24/17 11:45 AM [place] NURSE FAMPWS During your visit today, we recorded the following information about you: Marisa Ta LPN 10/24/2017 1:23 PM Signed Pt presents to have an EKG performed ordered by Dr Jesus. Pt denies problems at this time. Pt tolerated procedure well. Marisa Ta LPN Referring Provider: RADHA KAMARA [[id number]] Allergies As of Date: 10/24/2017 (No Known Allergies) Date Reviewed: 10/09/2017 Reviewed by: Ashley Jesus - Fully Assessed Reason for Visit: EKG [793] Cmt: Nurse visit Visit Diagnosis:Obstructive sleep apnea [G47.33] Prescriptions as of 10/24/2017 Sig: METHYLPREDNISOLONE 4 MG TABLE* Use orally as directed. LISINOPRIL 10 MG-HYDROCHLOROT* Take 1 tablet by mouth once d* TRIAMCINOLONE ACETONIDE 0.025* Apply 1 application to affect* DEXTROAMPHETAMINE-AMPHETAMINE* Take 1 tablet by mouth twice * DEXTROAMPHETAMINE-AMPHETAMINE* Take 1 tablet by mouth twice * COMPOUNDED PRESCRIPTION CPAP @ 11 cm of water with hu* CHOLECALCIFEROL (VITAMIN D3) * Take 1 capsule by mouth once * * B-COMPLEX TABLET one tablet daily Problem List As Of Date 10/24/2017 Noted Resolved BENIGN HYPERTENSION [I10] INVALID FOR* SLEEP DISTURBANCE NOS [G47.9] INVALID FOR* STOMACH FUNCTION DIS NEC [K31.89, R10.13] INVALID FOR* ABDOMINAL PAIN GENERALIZED [R10.84] INVALID FOR* NAUSEA ALONE [R11.0] INVALID FOR* Anxiety [F41.9] INVALID FOR* Hypogonadism male [E29.1] INVALID FOR* TAE (obstructive sleep apnea) [G47.33] INVALID FOR* More... Elevated prostate specific antigen (PSA) [R97.2*INVALID FOR* Encounter for screening for malignant neoplasm *INVALID FOR* Attention deficit disorder [F98.8] INVALID FOR* Encounter Status:Closed by MARISA TA LPN on 10/24/17 PSA,TOTAL- DIAGNOSTIC Collected: 10/15/2017 Status: F Source: [place] 10:[address] [facility] REPOSITORY TYPE CODE TESTS RESULT OUT OF RANGE REFERENCE UNITS LAB L501.9940 0.0-4.0 ng/mL PSA, Normal DIAGNOSTIC < 0.01 Result Comment: This test was performed using the TPSA assay method for the [employer] chemistry system. Values obtained with different assay methods cannot be used interchangably. When changing PSA assays in the course of monitoring a patient, additional sequential testing should be carried out to confirm baseline values. Performed By: #### L501.9940 #### [facility] [address] [place], [address] CBC AND DIFFERENTIAL Collected: 10/09/2017 Status: F Source: [place] 10:40 AM [facility] [place] REPOSITORY TYPE CODE TESTS RESULT OUT OF REFERENCE UNITS RANGE LAB WBC 3.70-11.00 k/uL WBC 10.16 LAB RBC 4.20-6.00 m/uL RBC 5.36 LAB HGB 13.0-17.0 g/dL Hemoglobin 16.3 LAB HCT 39.0-51.0 % Hematocrit 49.3 LAB MCV 80.0-100.0 fL MCV 92.0 LAB MCH 26.0-34.0 pG MCH 30.4 LAB MCHC 30.5-36.0 g/dL MCHC 33.1 LAB RDWCV 11.5-15.0 % RDW-CV 13.0 LAB PLTCT 150-400 k/uL Platelet Count 215 LAB MPV 9.0-12.7 fL MPV 9.9 LAB ANEUT % Neut% 63.2 LAB AANEUT 1.45-7.50 k/uL Abs Neut 6.43 LAB ALYMP % Lymph% 26.1 LAB AALYMP 1.00-4.00 k/uL Abs Lymph 2.65 LAB AMONO % [place]% 7.5 LAB AAMONO <0.87 k/uL Abs [place] 0.76 LAB AEOS % Eosin% 2.7 LAB AAEOS <0.46 k/uL Abs Eosin 0.27 LAB ABASO % Baso% 0.5 LAB AABASO <0.11 k/uL Abs Baso 0.05 LAB AUNRBC 0 /100 WBC NRBCs 0.0 LAB ABNRBC <0.01 k/uL Absolute nRBC <0.01 LAB DTYP DTYPE Auto Diff Performed By: #### CBCDIF, PT, PTT, FT4, TSH, RESPR8 #### [facility] [address] [place], [place] [address] PROTIME Collected: 10/09/2017 Status: F Source: [place] 10:40 AM [facility] REPOSITORY TYPE CODE TESTS RESULT OUT OF RANGE REFERENCE UNITS LAB PSEC 9.7-13.0 sec PT Sec 11.3 LAB INR 0.9-1.3 PT INR 1.1 Result Comment: Vitamin K Antagonist (VKA) Therapeutic Range: INR 2 to 3 (Target INR of 2.5) Note: For patients treated with VKA drugs, such as warfarin, the [place] [employer] 2012 Guideline recommends a therapeutic INR range of 2 to 3 (target INR of 2.5). This recommendation includes high-risk patients with antiphospholipid syndrome with previous arterial or venous thromboembolism, current-generation mechanical or bioprosthetic aortic heart valve replacement. Note: Patients with mechanical aortic valve replacement and additional risk factors for thromboembolic events (atrial fibrillation, previous thromboembolism, LV dysfunction, hypercoagulable conditions) or an older generation mechanical AVR (i.e., ball in-Cage) or any mechanical MVR should have a INR therapeutic range of 2.5 to 3.5 (target INR of 3). Lida GH, et al. Chest 2012, 141:7S-47S Haim RA, et al. [facility] 2017, 70: 252-289 Performed By: #### CBCDIF, PT, PTT, FT4, TSH, RESPR8 #### [facility] [address] [place], [place] [address] APTT Collected: 10/09/2017 Status: F Source: [place] 10:[address] [facility] REPOSITORY TYPE CODE TESTS RESULT OUT OF RANGE REFERENCE UNITS LAB APTT 23.0-32.4 sec APTT 25.7 Result Comment: Unfractionated Heparin Therapeutic Ranges: Standard Heparin Nomogram: 53 to 78 seconds (anti-Xa level of 0.3 to 0.7 U/ml) Low Dose/ACS Nomogram: 49 to 67 seconds (anti-Xa level of 0.2 to 0.5 U/ml) Stroke Treatment Nomogram: 49 to 67 seconds (anti-Xa level of 0.2 to 0.5 U/ml) Note: The APTT therapeutic range has been determined for the current lot of laboratory APTT reagent in use throughout the [facility]. Performed By: #### CBCDIF, PT, PTT, FT4, TSH, RESPR8 #### [facility] [address] [place], [place] [address] FREE T4 Collected: 10/09/2017 Status: F Source: [place] 10:[address] [facility] REPOSITORY TYPE CODE TESTS RESULT OUT OF RANGE REFERENCE UNITS LAB FT4 0.9-1.7 ng/dL Free T4 1.5 Performed By: #### CBCDIF, PT, PTT, FT4, TSH, RESPR8 #### [facility] [address] [place], [place] [address] TSH Collected: 10/09/2017 Status: F Source: [place] 10:[address] [facility] REPOSITORY TYPE CODE TESTS RESULT OUT OF RANGE REFERENCE UNITS LAB TSH 0.400-5.500 uU/mL TSH 1.940 Performed By: #### CBCDIF, PT, PTT, FT4, TSH, RESPR8 #### [facility] [address] [place], [place] [address] ALGN RESP REGION 8 Collected: 10/09/2017 Status: F Source: [place] 10:[address] [facility] REPOSITORY TYPE CODE TESTS RESULT OUT OF REFERENCE UNITS RANGE LAB ELMT <0.35 KU/L Elm Tree IgE <0.35 LAB ELMCL 0 Elm Tree-Class 0 LAB BLDR <0.35 KU/L [place] Tree IgE <0.35 LAB BLDCL 0 [place] Tree-Class 0 LAB SRAG <0.35 KU/L Short Ragweed IgE <0.35 LAB SRACL 0 Short Ragweed-Class 0 LAB CATDN <0.35 KU/L Cat Dander IgE <0.35 LAB CTDCL 0 Cat Dander-Class 0 LAB DFRN <0.35 KU/L Derm farinae IgE <0.35 LAB DFRCL 0 D. farinae-Class 0 LAB AFUMI <0.35 KU/L A fumigatus IgE <0.35 LAB AFCL 0 A. fumigatus-Class 0 LAB MTJUN <0.35 KU/L Mountain Juniper IgE <0.35 LAB MTJUCL 0 Mountain Junip Class 0 LAB PGWD <0.35 KU/L Pigweed IgE <0.35 LAB PGWCL 0 Pigweed-Class 0 LAB TIMY <0.35 KU/L [place] Grass IgE <0.35 LAB TIMCL 0 [place] Grass-Class 0 LAB WTASH <0.35 KU/L White [place] Tree IgE <0.35 LAB ASHCL 0 White [place]lon Class 0 LAB SYCA <0.35 KU/L [place] Tree IgE <0.35 LAB SYCACL 0 [place] Tree Class 0 LAB HIKPC <0.35 KU/L HickryPecan Tree IgE <0.35 LAB HIKCL 0 [place]/Pecan-Class 0 LAB ATEN <0.35 KU/L Alternariatenuis IgE <0.35 LAB ATCL 0 A. tenuis-Class 0 LAB MRAC <0.35 KU/L Mucor racemosus IgE <0.35 LAB MCRCL 0 Mucor racem.-Class 0 LAB OAKT <0.35 KU/L Harwood Tree IgE <0.35 LAB OAKCL 0 Harwood Tree-Class 0 LAB VASQUES <0.35 KU/L Cockroach IgE <0.35 LAB ROACL 0 Cockroach-Class 0 LAB RMLDR <0.35 KU/L Rough Marshelder IgE <0.35 LAB RMLCL 0 Rough Tyson El-Class 0 LAB K9D <0.35 KU/L Dog Dander IgE <0.35 LAB K9DCL 0 Dog Dander-Class 0 LAB DPTER 0-0.35 KU/L D pteronyssinus IgE <0.35 LAB DPCL 0 D.pteronyssin-Class 0 LAB JEYSON <0.35 KU/L Clad herbarum IgE <0.35 LAB CHCL 0 C.herbarum-Class 0 LAB CTWD <0.35 KU/L Lafe Tree IgE <0.35 LAB CTWCL 0 Lafe-Class 0 LAB THSL <0.35 KU/L Martiniquais Thistle IgE <0.35 LAB THSCL 0 Zev.Thistle-Class 0 LAB BRMUD <0.35 KU/L Bermuda Grass IgE <0.35 LAB BRMCL 0 [place] Grass-Class 0 LAB PNOTA <0.35 KU/L P. chrysogenum IgE <0.35 LAB PNOCL 0 P. chrysogenum IgE 0 LAB WNUT <0.35 KU/L Luver[place] Tree IgE <0.35 LAB WNUCL 0 [place]verne Tree-Class 0 LAB MULBY <0.35 KU/L [place] IgE <0.35 LAB MULCL 0 [place] Class 0 LAB MOUE <0.35 KU/L Mouse Epithelium IgE <0.35 LAB MOECL 0 Mouse Epith Class 0 LAB BIRCH 0-0.35 KU/L Webb IgE <0.35 LAB BIRCL 0 Webb-Class 0 Performed By: #### CBCDIF, PT, PTT, FT4, TSH, RESPR8 #### [facility] [address] [place], [place] [address] B NATRIURETIC PEPTID Collected: 10/09/2017 Status: F Source: [place] 10:[address] [facility] REPOSITORY TYPE CODE TESTS RESULT OUT OF REFERENCE UNITS RANGE LAB BNPEP 0-99 pg/mL B High Natriuretic 171 Peptid Performed By: #### BNP #### [facility] [address] [place], [place] [address] PROGRESS Observed: 10/09/2017 Status: COMPLETED Source: [place] 8:[address] [facility] REPOSITORY HNO ID: [id number] Author: Ashley Jesus Service: (none) Author Type: Physician Type: Progress Notes Filed: 10/09/2017 10:13 AM Note Text: Interval history: Mr. Rangel reports increasing cough and shortness of breath over the past 2 weeks. He had been doing well over the past year otherwise from a respiratory standpoint. He also wonders whether he has allergies. He has been experiencing increasing nasal congestion particularly with the season change. His asthma control test score is 11 today. Reflux is controlled on low-dose Prilosec. He has been compliant with CPAP therapy and benefits. He has lost 44 pounds adopting a healthy lifestyle. He takes Adderall for attention deficit disorder. Extended history of present illness: Mr. Rangel is a 67 year old male with a past medical history of HTN and TAE who presented for a dry cough of 2 months duration, with some variable wheezing and SOB associated at times. He was given Tessalon perles which did not help cough, then placed on prednisone taper and antibiotic with some relief, but symptoms returned with steroid taper. He went to the ER and urgent care twice with SOB. He reported normal chest Xrays (not available for review). He had been very responsive to bronchodilators and oral steroid courses, with reoccurrence of cough, wheezing and SOB when tapering. He took 10mg Prednisone every other day. He used Flovent once or twice daily only when he was not feeling well. He did not use Albuterol inhaler. 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 Sometimes, he is affected by PVC coated fabric smoke that comes out from the machines. He remembers that his major trouble with breathing occurred during the weekdays and not over the weekends. Current Outpatient Prescriptions on File Prior to Visit: lisinopril-hydrochlorothiazide (PRINZIDE,ZESTORETIC) 10-12.5 mg per tablet Take 1 tablet by mouth once daily. triamcinolone (KENALOG) 0.025 % cream Apply 1 application to affected area twice daily. [START ON 11/17/2017] Amphetamine-Dextroamphetamine (ADDERALL) 30 mg tablet Take 1 tablet by mouth twice daily for 30 days.Earliest Fill Date: 11/17/17 Amphetamine-Dextroamphetamine (ADDERALL) 30 mg tablet Take 1 tablet by mouth twice daily for 30 days.Earliest Fill Date: 06/08/17 COMPOUNDED PRESCRIPTION CPAP @ 11 cm of water with humidification. Mask (per patient preference) optional chin strap (if indicated) , filters, tubing, humidifier and lifetime supplies. Dx. TAE 327.23 Cholecalciferol, Vitamin D3, 1,000 unit cap Take 1 capsule by mouth once daily. vitamin b complex (B-COMPLEX) ORAL Tab one tablet daily No current facility-administered medications on file prior to visit. PAST MEDICAL HISTORY Diagnosis Date - Abdominal pain, generalized - Asthma - Obstructive sleep apnea - Snoring - Unspecified essential hypertension Essential hypertension PAST SURGICAL HISTORY Procedure Laterality Date - APPENDECTOMY - CARPAL TUNNEL RIGHT WRIST 01/04/10 - COLONOSCOP W/ OR W/O [facility] SPEC 01/20/07 screening thru [facility] - COLONOSCOP W/ OR W/O [facility] SPEC 07/25/2016 normal colonoscopy 10 year follow up - EGD W/O OR W/BRUSH/WASH 06/23/2008 EGD - LAP CHOLECYSTECT/CHOLANGIOGRAPHY 07/07/08 - LEFT WRIST CARPAL TUNNEL ONLY 01/04/10 - PAST SURGICAL HISTORY OF 01/2004 HEEL SPUR left - PAST SURGICAL HISTORY OF 11/16/2016 Nose procedure, by Dr. Chua - PAST SURGICAL HISTORY OF N/A 05/23/2017 Prostectomy - Dr. Cohen - REMOVAL OF HEEL SPUR 12/20/09 right heel - REMOVAL OF TONSILS,<12 Y/O Tonsillectomy - REPAIR ROTATOR CUFF,ACUTE Rotator cuff repair - ROTATOR CUFF REPAIR 2010 right FAMILY HISTORY Problem Relation Age of Onset - Heart Mother - Stroke Mother - None Father - None Brother Social History Marital status: Spouse name: Years of education: Number of children: Social History Main Topics Smoking status: Never Smoker Smokeless tobacco: Never Used Comment: smoked a year about 40 years ago Alcohol use: No Drug use: No Sexual activity: Yes Partners with: Female Physical examination: BP 138/78 Pulse 82 Temp 36.5 ?C (97.7 ?F) (Temporal Artery) SpO2 98% No JVD No pallor Irregular rhythm Few scattered rhonchi, overall good air entry Overweight No peripheral edema. 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 2 10/21/2015 03:16:43PM Medications and Allergies were reviewed for possible drug interactions per policy MM-102. No contraindications or sensitivities were noted. Respiratory meds taken: Flovent 9 hours before testing. 4 puffs albuterol (360 mcg) delivered by MDI via valved holding chamber, HRpre= 90/min, HRpost= 90/min. Pre and Post [place]: ATS acceptability and repeatability standards for spirometry met. Lung Volumes: Lung volume repeatability not met for TLC, TGV, RV. Best value reported. DLCO: ATS acceptability and repeatability standards for DLCO met. DLCO is not hemoglobin corrected.//KF IMPRESSION: Spirometry shows no obstruction. . There is no significant bronchodilator response. The TLC, RV and RV/TLC are normal. The diffusing capacity is normal. Electronically Signed On 10-21-2015 16:41:31 EDT by Lucina Charles Electronically Signed On 10-22-2015 13:43:48 EDT by Compa Melchor [facility] [place] Pulmonary Function Lab Pred LLN ULN Pre % Post % % chg Date [id number] Time 02:46PM 03:13PM -- Height 176.6 176.6 Weight 121.5 121.5 -- FVC 4.56 3.64 5.48 3.23 71 3.29 72 2 FEV 1 3.41 2.64 4.19 2.37 70 2.58 76 9 FEV1%F 74.84 65.17 84.52 73.57 98 78.46 105 7 FEV 2 3.70 2.66 4.74 2.76 75 2.91 79 6 FEV 3 4.20 3.18 5.22 2.88 69 3.03 72 5 FEV3%E 91.74 87.10 96.38 89.27 97 92.20 101 3 MEF 50 4.20 2.57 5.82 2.15 51 2.75 65 28 FIF 50 5.51 3.99 -28 F25/75 2.73 1.15 4.31 1.66 61 2.22 81 34 FE%FIF 39.01 68.86 77 FEV6 3.08 3.18 3 PEF 8.37 6.01 10.73 7.99 96 8.19 98 2 FET 13.24 10.97 -17 FETPEF 0.05 0.04 -20 VBe%FV 3.72 1.95 -47 VBEex 0.12 0.06 -47 -- -- -- -- FRCpl 3.62 2 .16 5.08 2.64 73 ERV 0.12 RV 2.30 1.54 3.06 2.52 110 VC 4.56 3.64 5.48 3.81 84 TLC 6.91 5.30 8.52 6.34 92 RV%TLC 33.84 25.04 42.64 39.83 118 -- DLCO 27.32 19.32 35.33 23.89 87 DL/VA 4.15 2.95 5.35 4.45 107 VA 6.73 5.36 8.10 5.36 80 IGNACIO 4.56 3.64 5.48 3.48 76 BHT 11.25 %COHb 0 .00 -- -- -- CT chest: 07/02/2015 ?9:38 AM - Results In Interface ? Impression ? IMPRESSION: 1. ?Minimal atelectasis or scarring in the inferolateral left lung base. 2. ?Remote granulomatous disease. 3. ?Geographic hepatic steatosis. Formulation Scientist: PSC Transcribe Date/Time: Jul 02 2015 ?9:33A Dictated by : MAILE MCGRAW MD This examination was interpreted and the report reviewed and electronically signed by: MAILE MCGRAW MD On Jul 02 2015 ?9:33AM ? ? Assessment and plan: Asthma-uncontrolled Rule out atrial fibrillation GERD TAE on CPAP Mr. Rangel reports worsening of respiratory symptoms which may represent asthma exacerbation. I suggested prednisone 40 mg for 5 days and resuming Advair 250/50 one inhalation twice daily. Albuterol use should be judicious since there does not appear to be significant airflow limitation on exam. His heart rhythm is irregular. I consider atrial fibrillation versus prominent respiratory variation (favor former). He is hemodynamically stable. Risk factors for stroke include hypertension, age. I will obtain an ECG and guide workup based on results. If the ECG does not show atrial fibrillation or respiratory variation, he needs Holter monitoring. Decision to treat with Adderall should be reconsidered. Return to clinic in 2 months. Ashley Jesus MD [facility] [place] [facility] [place] Addendum: Mr. Rangel had an EKG strip here in a 90. His heart rate is 99 and he has an irregular rhythm with no P-wave identified. I ordered thyroid profile, BNP, PT PTT and CBC. An echocardiogram and cardiology appointment should be considered. I left a message for Dr. Ephraim faulkner, patient's primary physician and he will be calling him tomorrow. The patient is hemodynamically stable with few risk factors for stroke. He is on daily aspirin. I don't believe he needs inpatient care at the moment. I advised against the use of albuterol and Adderall at this point. Reduce/eliminate caffeine intake. ECG strip given to patient. Ashley Jesus MD [facility] [place] [facility] [place] CNOV Observed: 10/09/2017 Status: COMPLETED Source: [place] 7:[address] [facility] REPOSITORY Office Visit (PULMMN) SILVIANO RANGEL ([id number]) 1950 M Date Time Provider Department 10/09/17 7:55 AM ASHLEY JESUS During your visit today, we recorded the following information about you: Temperature Pulse Blood pressure 97.7 degrees 82/minute 138/78 Ashley Jesus MD 10/09/2017 10:13 AM Addendum Interval history: Mr. Rangel reports increasing cough and shortness of breath over the past 2 weeks. He had been doing well over the past year otherwise from a respiratory standpoint. He also wonders whether he has allergies. He has been experiencing increasing nasal congestion particularly with the season change. His asthma control test score is 11 today. Reflux is controlled on low-dose Prilosec. He has been compliant with CPAP therapy and benefits. He has lost 44 pounds adopting a healthy lifestyle. He takes Adderall for attention deficit disorder. Extended history of present illness: Mr. Rangel is a 67 year old male with a past medical history of HTN and TAE who presented for a dry cough of 2 months duration, with some variable wheezing and SOB associated at times. He was given Tessalon perles which did not help cough, then placed on prednisone taper and antibiotic with some relief, but symptoms returned with steroid taper. He went to the ER and urgent care twice with SOB. He reported normal chest Xrays (not available for review). He had been very responsive to bronchodilators and oral steroid courses, with reoccurrence of cough, wheezing and SOB when tapering. He took 10mg Prednisone every other day. He used Flovent once or twice daily only when he was not feeling well. He did not use Albuterol inhaler. 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 Sometimes, he is affected by PVC coated fabric smoke that comes out from the machines. He remembers that his major trouble with breathing occurred during the weekdays and not over the weekends. Current Outpatient Prescriptions on File Prior to Visit: lisinopril-hydrochlorothiazide (PRINZIDE,ZESTORETIC) 10-12.5 mg per tablet Take 1 tablet by mouth once daily. triamcinolone (KENALOG) 0.025 % cream Apply 1 application to affected area twice daily. [START ON 11/17/2017] Amphetamine-Dextroamphetamine (ADDERALL) 30 mg tablet Take 1 tablet by mouth twice daily for 30 days.Earliest Fill Date: 11/17/17 Amphetamine-Dextroamphetamine (ADDERALL) 30 mg tablet Take 1 tablet by mouth twice daily for 30 days.Earliest Fill Date: 06/08/17 COMPOUNDED PRESCRIPTION CPAP @ 11 cm of water with humidification. Mask (per patient preference) optional chin strap (if indicated) , filters, tubing, humidifier and lifetime supplies. Dx. TAE 327.23 Cholecalciferol, Vitamin D3, 1,000 unit cap Take 1 capsule by mouth once daily. vitamin b complex (B-COMPLEX) ORAL Tab one tablet daily No current facility-administered medications on file prior to visit. PAST MEDICAL HISTORY Diagnosis Date - Abdominal pain, generalized - Asthma - Obstructive sleep apnea - Snoring - Unspecified essential hypertension Essential hypertension PAST SURGICAL HISTORY Procedure Laterality Date - APPENDECTOMY - CARPAL TUNNEL RIGHT WRIST 01/04/10 - COLONOSCOP W/ OR W/O [facility] SPEC 01/20/07 screening thru [facility] - COLONOSCOP W/ OR W/O [facility] SPEC 07/25/2016 normal colonoscopy 10 year follow up - EGD W/O OR W/BRUSH/WASH 06/23/2008 EGD - LAP CHOLECYSTECT/CHOLANGIOGRAPHY 07/07/08 - LEFT WRIST CARPAL TUNNEL ONLY 01/04/10 - PAST SURGICAL HISTORY OF 01/2004 HEEL SPUR left - PAST SURGICAL HISTORY OF 11/16/2016 Nose procedure, by Dr. Chua - PAST SURGICAL HISTORY OF N/A 05/23/2017 Prostectomy - Dr. Cohen - REMOVAL OF HEEL SPUR 12/20/09 right heel - REMOVAL OF TONSILS,<12 Y/O Tonsillectomy - REPAIR ROTATOR CUFF,ACUTE Rotator cuff repair - ROTATOR CUFF REPAIR 2011 right FAMILY HISTORY Problem Relation Age of Onset - Heart Mother - Stroke Mother - None Father - None Brother Social History Marital status: Spouse name: Years of education: Number of children: Social History Main Topics Smoking status: Never Smoker Smokeless tobacco: Never Used Comment: smoked a year about 40 years ago Alcohol use: No Drug use: No Sexual activity: Yes Partners with: Female Physical examination: BP 138/78 Pulse 82 Temp 36.5 ?C (97.7 ?F) (Temporal Artery) SpO2 98% No JVD No pallor Irregular rhythm Few scattered rhonchi, overall good air entry Overweight No peripheral edema. 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 2 10/21/2015 03:16:43PM Medications and Allergies were reviewed for possible drug interactions per policy MM-102. No contraindications or sensitivities were noted. Respiratory meds taken: Flovent 9 hours before testing. 4 puffs albuterol (360 mcg) delivered by MDI via valved holding chamber, HRpre= 90/min, HRpost= 90/min. Pre and Post [place]: ATS acceptability and repeatability standards for spirometry met. Lung Volumes: Lung volume repeatability not met for TLC, TGV, RV. Best value reported. DLCO: ATS acceptability and repeatability standards for DLCO met. DLCO is not hemoglobin corrected.//KF IMPRESSION: Spirometry shows no obstruction. . There is no significant bronchodilator response. The TLC, RV and RV/TLC are normal. The diffusing capacity is normal. Electronically Signed On 10-21-2015 16:41:31 EDT by Fellow Jourdan Charles Electronically Signed On 10-22-2015 13:43:48 EDT by Compa Melchor [facility] [place] [facility] Function Lab Pred N [place] Pre % Post % % chg Date [id number] Time 02:46PM 03:13PM Height 176.6 176.6 Weight 121.5 121.5 FVC 4.56 3.64 5.48 3.23 71 3.29 72 2 FEV 1 3.41 2.64 4.19 2.37 70 2.58 76 9 FEV1%F 74.84 65.17 84.52 73.57 98 78.46 105 7 FEV 2 3.70 2.66 4.74 2.76 75 2.91 79 6 FEV 3 4.20 3.18 5.22 2.88 69 3.03 72 5 FEV3%E 91.74 87.10 96.38 89.27 97 92.20 101 3 MEF 50 4.20 2.57 5.82 2.15 51 2.75 65 28 FIF 50 5.51 3.99 -28 F25/75 2.73 1.15 4.31 1.66 61 2.22 81 34 FE%FIF 39.01 68.86 77 FEV6 3.08 3.18 3 PEF 8.37 6.01 10.73 7.99 96 8.19 98 2 FET 13.24 10.97 -17 FETPEF 0.05 0.04 -20 VBe%FV 3.72 1.95 -47 VBEex 0.12 0.06 -47 FRCpl 3.62 2 .16 5.08 2.64 73 ERV 0.12 RV 2.30 1.54 3.06 2.52 110 VC 4.56 3.64 5.48 3.81 84 TLC 6.91 5.30 8.52 6.34 92 RV%TLC 33.84 25.04 42.64 39.83 118 DLCO 27.32 19.32 35.33 23.89 87 DL/VA 4.15 2.95 5.35 4.45 107 VA 6.73 5.36 8.10 5.36 80 IGNACIO 4.56 3.64 5.48 3.48 76 BHT 11.25 %COHb [address] chest: 07/02/2015 ?9:38 AM - Results In Interface ? Impression ? IMPRESSION: 1. ?Minimal atelectasis or scarring in the inferolateral left lung base. 2. ?Remote granulomatous disease. 3. ?Geographic hepatic steatosis. Formulation Scientist: PSC Transcribe Date/Time: Jul 02 2015 ?9:33A Dictated by : MAILE MCGRAW MD This examination was interpreted and the report reviewed and electronically signed by: MAILE MCGRAW MD On Jul 02 2015 ?9:33AM ? ? Assessment and plan: Asthma-uncontrolled Rule out atrial fibrillation GERD TAE on CPAP Mr. Rangel reports worsening of respiratory symptoms which may represent asthma exacerbation. I suggested prednisone 40 mg for 5 days and resuming Advair 250/50 one inhalation twice daily. Albuterol use should be judicious since there does not appear to be significant airflow limitation on exam. His heart rhythm is irregular. I consider atrial fibrillation versus prominent respiratory variation (favor former). He is hemodynamically stable. Risk factors for stroke include hypertension, age. I will obtain an ECG and guide workup based on results. If the ECG does not show atrial fibrillation or respiratory variation, he needs Holter monitoring. Decision to treat with Adderall should be reconsidered. Return to clinic in 2 months. Ashley Jesus MD [facility] [place] [facility] [place] Addendum: Mr. Rangel had an EKG strip here in a 90. His heart rate is 99 and he has an irregular rhythm with no P-wave identified. I ordered thyroid profile, BNP, PT PTT and CBC. An echocardiogram and cardiology appointment should be considered. I left a message for Dr. Epharim faulkner, patient's primary physician and he will be calling him tomorrow. The patient is hemodynamically stable with few risk factors for stroke. He is on daily aspirin. I don't believe he needs inpatient care at the moment. I advised against the use of albuterol and Adderall at this point. Reduce/eliminate caffeine intake. ECG strip given to patient. Ashley Jesus MD [facility] [place] [facility] Referring Provider: MARCIANO JESUS [[id number]] Allergies As of Date: 10/09/2017 (No Known Allergies) Date Reviewed: 10/09/2017 Reviewed by: Ashley Jesus - Fully Assessed Reason for Visit: Recheck [92] Primary Visit Diagnosis:TAE (obstructive sleep apnea) [G47.33] Other Visit Diagnoses:Uncomplicated asthma, unspecified asthma severity, unspecified whether persistent [J45.909] Asthma with acute exacerbation, unspecified asthma severity, unspecified whether persistent [J45.901] Irregular heart rate [I49.9] Order(s):ECG COMPLETE W INTERPRETATION [ECG01] Order #: [id number] FUTURE predniSONE (DELTASONE) 20 mg tabletTake 2 tablets by mouth once daily.Disp: 10 tabletRfl: 5 Prescriptions as of 10/09/2017 Sig: PREDNISONE 20 MG TABLET Take 2 tablets by mouth once * LISINOPRIL 10 MG-HYDROCHLOROT* Take 1 tablet by mouth once d* TRIAMCINOLONE ACETONIDE 0.025* Apply 1 application to affect* DEXTROAMPHETAMINE-AMPHETAMINE* Take 1 tablet by mouth twice * DEXTROAMPHETAMINE-AMPHETAMINE* Take 1 tablet by mouth twice * COMPOUNDED PRESCRIPTION CPAP @ 11 cm of water with hu* CHOLECALCIFEROL (VITAMIN D3) * Take 1 capsule by mouth once * * B-COMPLEX TABLET one tablet daily Problem List As Of Date 10/09/2017 Noted Resolved BENIGN HYPERTENSION [I10] INVALID FOR* SLEEP DISTURBANCE NOS [G47.9] INVALID FOR* STOMACH FUNCTION DIS NEC [K31.89, R10.13] INVALID FOR* ABDOMINAL PAIN GENERALIZED [R10.84] INVALID FOR* NAUSEA ALONE [R11.0] INVALID FOR* Anxiety [F41.9] INVALID FOR* Hypogonadism male [E29.1] INVALID FOR* TAE (obstructive sleep apnea) [G47.33] INVALID FOR* More... Elevated prostate specific antigen (PSA) [R97.2*INVALID FOR* Encounter for screening for malignant neoplasm *INVALID FOR* Attention deficit disorder [F98.8] INVALID FOR* Prescriptions ordered this encounter Disp Refills Start End PREDNISONE 20 MG TABLET 10 t* 5 10/09/2017 Route: ORAL Sig: Take 2 tablets by mouth once daily. Disposition: Return in about 2 months (around 12/09/2017). Follow-up and Disposition History Recorded Questionnaire: ASTHMA CONTROL TEST Last 4 weeks, your asthma limited your activity at work or home: -> 3 SOME OF THE TIME Past 4 weeks, how often have you had shortness of breath? -> 1 MORE THAN ONCE A DAY Past 4 weeks: Asthma symptoms woke you at night or earlier than usual? -> 1 FOUR OR MORE NIGHTS A WEEK Past 4 weeks: How often did you use rescue inhaler or nebulizer med? -> 3 A FEW TIMES A WEEK Rate your Asthma Control during the past 4 weeks: -> 3 SOMEWHAT CONTROLLED ACT TOTAL SCORE: -> 11 Encounter Status:Closed by ASHLEY JESUS MD on 10/09/17 PROGRESS Observed: 09/18/2017 Status: COMPLETED Source: [place] 8:[address] [facility] REPOSITORY HNO ID: [id number] Author: Radha Kamara Service: (none) Author Type: Physician Type: Progress Notes Filed: 09/18/2017 4:18 PM Note Text: Chief Complaint Patient presents with: F/U 3 Month: ADD and HTN HPI Silviano Rangel is a 67 year old male who presents here today for a 3 mo f/u. HTN - Checking couple times a week with BP ranging WNL, 130/80's. Denies any chest pain, sob or dizziness. Goes to the gym daily and gets his heart rate up. Currently taking Lisinopril 10 mg 1 tab po once daily. D/c Triamterene-HCTZ 37.5-25 mg at last OV but since that time notes he is retaining fluid. Wedding rings are tight on his fingers and legs feel tight. Does drink a lot of water and not urinating as well. ADD - Currently taking Adderall 30 mg 1 tab po bid and feels that the medication is not working like it was previously for concentration, starting 3 weeks ago. Feels that it's a slow process but his concentration is just not where it was when he originally started the dose. Notices symptoms in the morning and needing second dose by 2:00 pm. Understands that not everyday will be perfect. Derm - Rash that he believed was poison godwin located on his calves and upper thighs. Pt weed-eats a lot of yard in shorts and thought this was the cause but is uncertain if this is what the rash is from. Currently using Nizoral 2% cream with no real relief. TAE - Currently using CPAP nightly and does well with machine and finds beneficial. Past medical history, appointments, medications, allergies reviewed. Previous Medical History PAST MEDICAL HISTORY Diagnosis Date - Abdominal pain, generalized - Asthma - Obstructive sleep apnea - Snoring - Unspecified essential hypertension Essential hypertension Previous Surgical History PAST SURGICAL HISTORY Procedure Laterality Date - APPENDECTOMY - CARPAL TUNNEL RIGHT WRIST 01/04/10 - COLONOSCOP W/ OR W/O [facility] SPEC 01/20/07 screening thru [facility] - COLONOSCOP W/ OR W/O [facility] SPEC 07/25/2016 normal colonoscopy 10 year follow up - EGD W/O OR W/BRUSH/WASH 06/23/2008 EGD - LAP CHOLECYSTECT/CHOLANGIOGRAPHY 07/07/08 - LEFT WRIST CARPAL TUNNEL ONLY 01/04/10 - PAST SURGICAL HISTORY OF 01/2004 HEEL SPUR left - PAST SURGICAL HISTORY OF 11/16/2016 Nose procedure, by Dr. Chua - PAST SURGICAL HISTORY OF N/A 05/23/2017 Prostectomy - Dr. Cohen - REMOVAL OF HEEL SPUR 12/20/09 right heel - REMOVAL OF TONSILS,<12 Y/O Tonsillectomy - REPAIR ROTATOR CUFF,ACUTE Rotator cuff repair - ROTATOR CUFF REPAIR 2011 right Family History FAMILY HISTORY Problem Relation Age of Onset - Heart Mother - Stroke Mother - None Father - None Brother Patient Allergies ALLERGIES No Known Allergies Current Medications Current Outpatient Prescriptions on File Prior to Visit: Amphetamine-Dextroamphetamine (ADDERALL) 30 mg tablet Take 1 tablet by mouth twice daily for 31 days.Earliest Fill Date: 09/05/17 Amphetamine-Dextroamphetamine (ADDERALL) 30 mg tablet Take 1 tablet by mouth twice daily for 30 days.Earliest Fill Date: 06/08/17 lisinopril (ZESTRIL, PRINIVIL) 10 mg tablet Take 1 tablet by mouth once daily. ketoconazole (NIZORAL) 2 % cream Apply 1 application to affected area twice daily. APPLY TOPICALLY ONCE DAILY FOR 2 WEEKS COMPOUNDED PRESCRIPTION CPAP @ 11 cm of water with humidification. Mask (per patient preference) optional chin strap (if indicated) , filters, tubing, humidifier and lifetime supplies. Dx. TAE 327.23 Cholecalciferol, Vitamin D3, 1,000 unit cap Take 1 capsule by mouth once daily. vitamin b complex (B-COMPLEX) ORAL Tab one tablet daily triamterene-hydrochlorothiazide 37.5-25 mg per capsule Take 1 capsule by mouth once daily. No current facility-administered medications on file prior to visit. Social History Social History Marital status: Spouse name: Years of education: Number of children: Social History Main Topics Smoking status: Never Smoker Smokeless tobacco: Never Used Comment: smoked a year about 40 years ago Alcohol use: No Drug use: No Sexual activity: Yes Partners with: Female EXAM: BP 138/86 (BP Site: Left Arm, BP Position: Sitting, BP Cuff Size: Regular Adult) Pulse 60 Resp 16 Wt 114.9 kg (253 lb 6.4 oz) BMI 34.37 kg/m? General Appearance: Well appearing, alert, in no acute distress, well-hydrated, well nourished., Overweight. Skin: Allergic type skin reaction on legs. Lungs: Lungs clear to auscultation. No wheezing, rhonchi, rales. Heart: RRR without murmur, gallop, or rubs. No ectopy. Health Maintenance List HEPATITIS C SCREENING due on 1995 PNEUMOVAX AGE 65 AND OVER WITH 5YR LOOKBACK(1) due on 2016 DIABETES SCREEN due on 06/18/2020 LIPID SCREEN due on 06/18/2022 DTAP,TDAP,TD(2 - Td) due on 06/21/2026 COLORECTAL CANCER SCREENING,SEE MODIFIER due on 07/25/2026 PROSTATE CANCER SCREENING DISCUSSION Completed ADULT PREVNAR-13 Completed INFLUENZA Completed Data reviewed External labs 07/10/17 ASSESSMENT/PLAN: 1. Essential hypertension, benign - ICD9: 401.1, ICD10: I10 (primary diagnosis) - good control - Add Prinzide 10-12.5 mg 1 tab po once daily - Recommended regular aerobic exercise. - Recommend home blood pressure monitoring, to bring results in on next visit - Goal of BP <130/80 2. Attention deficit disorder, unspecified hyperactivity presence - ICD9: 314.00, ICD10: F98.8 - Discussed staying on current dose. 3. TAE (obstructive sleep apnea) - ICD9: 327.23, ICD10: G47.33 - Doing well 4. Skin rash - ICD9: 782.1, ICD10: R21 - Start Kenalog cream 3 mo f/u Radha Kamara MD The documentation for this note was completed by Khadra Mena Ma acting as scribe for Radha Kamara MD. September 18, 2017 8:11 AM. CNOV Observed: 09/18/2017 Status: COMPLETED Source: [place] 8:[address] [facility] REPOSITORY Office Visit (FAMPWS) SILVIANO RANGEL ([id number]) 1950 M Date Time Provider Department 09/18/17 8:00 AM [facility] During your visit today, we recorded the following information about you: Pulse Respiration Blood pressure Weight 60/minute 16/minute 138/86 114.9 kg Radha Kamara MD 09/18/2017 4:18 PM Signed Chief Complaint Patient presents with: F/U 3 Month: ADD and HTN HPI Silviano Ranegl is a 67 year old male who presents here today for a 3 mo f/u. HTN - Checking couple times a week with BP ranging WNL, 130/80's. Denies any chest pain, sob or dizziness. Goes to the gym daily and gets his heart rate up. Currently taking Lisinopril 10 mg 1 tab po once daily. D/c Triamterene-HCTZ 37.5-25 mg at last OV but since that time notes he is retaining fluid. Wedding rings are tight on his fingers and legs feel tight. Does drink a lot of water and not urinating as well. ADD - Currently taking Adderall 30 mg 1 tab po bid and feels that the medication is not working like it was previously for concentration, starting 3 weeks ago. Feels that it's a slow process but his concentration is just not where it was when he originally started the dose. Notices symptoms in the morning and needing second dose by 2:00 pm. Understands that not everyday will be perfect. Derm - Rash that he believed was poison godwin located on his calves and upper thighs. Pt weed-eats a lot of yard in shorts and thought this was the cause but is uncertain if this is what the rash is from. Currently using Nizoral 2% cream with no real relief. TAE - Currently using CPAP nightly and does well with machine and finds beneficial. Past medical history, appointments, medications, allergies reviewed. Previous Medical History PAST MEDICAL HISTORY Diagnosis Date - Abdominal pain, generalized - Asthma - Obstructive sleep apnea - Snoring - Unspecified essential hypertension Essential hypertension Previous Surgical History PAST SURGICAL HISTORY Procedure Laterality Date - APPENDECTOMY - CARPAL TUNNEL RIGHT WRIST 01/04/10 - COLONOSCOP W/ OR W/O [facility] SPEC 01/20/07 screening thru [facility] - COLONOSCOP W/ OR W/O [facility] SPEC 07/25/2016 normal colonoscopy 10 year follow up - EGD W/O OR W/BRUSH/WASH 06/23/2008 EGD - LAP CHOLECYSTECT/CHOLANGIOGRAPHY 07/07/08 - LEFT WRIST CARPAL TUNNEL ONLY 01/04/10 - PAST SURGICAL HISTORY OF 01/2004 HEEL SPUR left - PAST SURGICAL HISTORY OF 11/16/2016 Nose procedure, by Dr. Chua - PAST SURGICAL HISTORY OF N/A 05/23/2017 Prostectomy - Dr. Cohen - REMOVAL OF HEEL SPUR 12/20/09 right heel - REMOVAL OF TONSILS,<12 Y/O Tonsillectomy - REPAIR ROTATOR CUFF,ACUTE Rotator cuff repair - ROTATOR CUFF REPAIR 2010 right Family History FAMILY HISTORY Problem Relation Age of Onset - Heart Mother - Stroke Mother - None Father - None Brother Patient Allergies ALLERGIES No Known Allergies Current Medications Current Outpatient Prescriptions on File Prior to Visit: Amphetamine-Dextroamphetamine (ADDERALL) 30 mg tablet Take 1 tablet by mouth twice daily for 31 days.Earliest Fill Date: 09/05/17 Amphetamine-Dextroamphetamine (ADDERALL) 30 mg tablet Take 1 tablet by mouth twice daily for 30 days.Earliest Fill Date: 06/08/17 lisinopril (ZESTRIL, PRINIVIL) 10 mg tablet Take 1 tablet by mouth once daily. ketoconazole (NIZORAL) 2 % cream Apply 1 application to affected area twice daily. APPLY TOPICALLY ONCE DAILY FOR 2 WEEKS COMPOUNDED PRESCRIPTION CPAP @ 11 cm of water with humidification. Mask (per patient preference) optional chin strap (if indicated) , filters, tubing, humidifier and lifetime supplies. Dx. TAE 327.23 Cholecalciferol, Vitamin D3, 1,000 unit cap Take 1 capsule by mouth once daily. vitamin b complex (B-COMPLEX) ORAL Tab one tablet daily triamterene-hydrochlorothiazide 37.5-25 mg per capsule Take 1 capsule by mouth once daily. No current facility-administered medications on file prior to visit. Social History Social History Marital status: Spouse name: Years of education: Number of children: Social History Main Topics Smoking status: Never Smoker Smokeless tobacco: Never Used Comment: smoked a year about 40 years ago Alcohol use: No Drug use: No Sexual activity: Yes Partners with: Female EXAM: BP 138/86 (BP Site: Left Arm, BP Position: Sitting, BP Cuff Size: Regular Adult) Pulse 60 Resp 16 Wt 114.9 kg (253 lb 6.4 oz) BMI 34.37 kg/m? General Appearance: Well appearing, alert, in no acute distress, well-hydrated, well nourished., Overweight. Skin: Allergic type skin reaction on legs. Lungs: Lungs clear to auscultation. No wheezing, rhonchi, rales. Heart: RRR without murmur, gallop, or rubs. No ectopy. Health Maintenance List HEPATITIS C SCREENING due on 1995 PNEUMOVAX AGE 65 AND OVER WITH 5YR LOOKBACK(1) due on 2016 DIABETES SCREEN due on 06/18/2020 LIPID SCREEN due on 06/18/2022 DTAP,TDAP,TD(2 - Td) due on 06/21/2026 COLORECTAL CANCER SCREENING,SEE MODIFIER due on 07/25/2026 PROSTATE CANCER SCREENING DISCUSSION Completed ADULT PREVNAR-13 Completed INFLUENZA Completed Data reviewed External labs 07/10/17 ASSESSMENT/PLAN: 1. Essential hypertension, benign - ICD9: 401.1, ICD10: I10 (primary diagnosis) - good control - Add Prinzide 10-12.5 mg 1 tab po once daily - Recommended regular aerobic exercise. - Recommend home blood pressure monitoring, to bring results in on next visit - Goal of BP <130/80 2. Attention deficit disorder, unspecified hyperactivity presence - ICD9: 314.00, ICD10: F98.8 - Discussed staying on current dose. 3. TAE (obstructive sleep apnea) - ICD9: 327.23, ICD10: G47.33 - Doing well 4. Skin rash - ICD9: 782.1, ICD10: R21 - Start Kenalog cream 3 mo f/u Radha Kamara MD The documentation for this note was completed by Khadra Mena Ma acting as scribe for Radha Kamara MD. September 18, 2017 8:11 AM. Referring Provider: RADHA KAMARA [[id number]] Allergies As of Date: 09/18/2017 (No Known Allergies) Date Reviewed: 09/18/2017 Reviewed by: Khadra Mena Ma - Fully Assessed Reason for Visit: F/U 3 Month [443] Cmt: ADD and HTN Primary Visit Diagnosis:Essential hypertension, benign [I10] Other Visit Diagnoses:Attention deficit disorder, unspecified hyperactivity presence [F98.8] TAE (obstructive sleep apnea) [G47.33] Skin rash [R21] Order(s):lisinopril-hydrochlorothiazide (PRINZIDE,ZESTORETIC) 10-12.5 mg per tabletTake 1 tablet by mouth once daily.Disp: 90 tabletRfl: 1 triamcinolone (KENALOG) 0.025 % creamApply 1 application to affected area twice daily.Disp: 30 gRfl: 2 [START ON 11/17/2017] Amphetamine-Dextroamphetamine (ADDERALL) 30 mg tabletTake 1 tablet by mouth twice daily for 30 days. Earliest Fill Date: 11/17/17Disp: 60 tabletRfl: 0 Prescriptions as of 09/18/2017 Sig: DEXTROAMPHETAMINE-AMPHETAMINE* Take 1 tablet by mouth twice * DEXTROAMPHETAMINE-AMPHETAMINE* Take 1 tablet by mouth twice * COMPOUNDED PRESCRIPTION CPAP @ 11 cm of water with hu* CHOLECALCIFEROL (VITAMIN D3) * Take 1 capsule by mouth once * * B-COMPLEX TABLET one tablet daily LISINOPRIL 10 MG-HYDROCHLOROT* Take 1 tablet by mouth once d* TRIAMCINOLONE ACETONIDE 0.025* Apply 1 application to affect* Problem List As Of Date 09/18/2017 Noted Resolved BENIGN HYPERTENSION [I10] INVALID FOR* SLEEP DISTURBANCE NOS [G47.9] INVALID FOR* STOMACH FUNCTION DIS NEC [K31.89, R10.13] INVALID FOR* ABDOMINAL PAIN GENERALIZED [R10.84] INVALID FOR* NAUSEA ALONE [R11.0] INVALID FOR* Anxiety [F41.9] INVALID FOR* Hypogonadism male [E29.1] INVALID FOR* TAE (obstructive sleep apnea) [G47.33] INVALID FOR* More... Elevated prostate specific antigen (PSA) [R97.2*INVALID FOR* Encounter for screening for malignant neoplasm *INVALID FOR* Attention deficit disorder [F98.8] INVALID FOR* Prescriptions ordered this encounter Disp Refills Start End LISINOPRIL 10 MG-HYDROCHLOROTHIAZIDE* 90 t* 1 09/18/2017 Route: ORAL Sig: Take 1 tablet by mouth once daily. DEXTROAMPHETAMINE-AMPHETAMINE 30 MG * 60 t* 0 09/18/2017 09/18/2017 Class: Print RX Route: ORAL Sig: Take 1 tablet by mouth twice daily for 30 days. Earliest Fill Date: 09/18/17 TRIAMCINOLONE ACETONIDE 0.025 % TOPI* 30 g 2 09/18/2017 Route: TOPICAL Sig: Apply 1 application to affected area twice daily. DEXTROAMPHETAMINE-AMPHETAMINE 30 MG * 60 t* 0 10/18/2017 09/18/2017 Class: Print RX Route: ORAL Sig: Take 1 tablet by mouth twice daily for 30 days. Earliest Fill Date: 10/18/17 DEXTROAMPHETAMINE-AMPHETAMINE 30 MG * 60 t* 0 11/17/2017 12/17/2017 Class: Print RX Route: ORAL Sig: Take 1 tablet by mouth twice daily for 30 days. Earliest Fill Date: 11/17/17 Medications Discontinued During This Encounter triamterene-hydrochlorothiazide 37.5* 90 c* 3 12/29/2016 09/18/2017 Class: [employer] Route: ORAL Sig: Take 1 capsule by mouth once daily. Disc: Reason for discontinue is not on file. ketoconazole (NIZORAL) 2 % cream 30 g 3 10/26/2016 09/18/2017 Route: TOPICAL Sig: Apply 1 application to affected area twice daily. APPLY TOPICALLY ONCE DAILY FOR 2 WEEKS Disc: Changing Therapy/Dosage Form lisinopril (ZESTRIL, PRINIVIL) 10 mg* 90 t* 3 12/29/2016 09/18/2017 Class: [employer] Route: ORAL Sig: Take 1 tablet by mouth once daily. Disc: Reason for discontinue is not on file. Amphetamine-Dextroamphetamine (ADDER* 60 t* 0 09/05/2017 09/18/2017 Class: Print RX Route: ORAL Sig: Take 1 tablet by mouth twice daily for 31 days. Earliest Fill Date: 09/05/17 Disc: Reason for discontinue is not on file. Amphetamine-Dextroamphetamine (ADDER* 60 t* 0 09/18/2017 09/18/2017 Class: Print RX Route: ORAL Sig: Take 1 tablet by mouth twice daily for 30 days. Earliest Fill Date: 09/18/17 Disc: Reason for discontinue is not on file. Amphetamine-Dextroamphetamine (ADDER* 60 t* 0 10/18/2017 09/18/2017 Class: Print RX Route: ORAL Sig: Take 1 tablet by mouth twice daily for 30 days. Earliest Fill Date: 10/18/17 Disc: Reason for discontinue is not on file. Disposition: Return in about 3 months (around 12/19/2017). Follow-up and Disposition History Recorded Encounter Status:Closed by RADHA KAMARA MD on 09/18/17 PSA,TOTAL- DIAGNOSTIC Collected: 07/06/2017 Status: F Source: [place] 9:[address] [facility] REPOSITORY TYPE CODE TESTS RESULT OUT OF RANGE REFERENCE UNITS LAB L501.9940 0.0-4.0 ng/mL PSA, Normal DIAGNOSTIC < 0.01 Result Comment: This test was performed using the TPSA assay method for the [employer] chemistry system. Values obtained with different assay methods cannot be used interchangably. When changing PSA assays in the course of monitoring a patient, additional sequential testing should be carried out to confirm baseline values. Performed By: #### L501.9940 #### [facility] [address] [place], [place], [address] PSA, SCREENING Collected: 06/18/2017 Status: F Source: [place] 8:[address] [facility] REPOSITORY TYPE CODE TESTS RESULT OUT OF REFERENCE UNITS RANGE LAB PSAS 0.00-2.59 ng/mL PSA, Screening <0.03 Result Comment: Total PSA test methodology used is the Electrochemiluminescence Immunoassay. For an individual patient, the significance of a PSA level should be interpreted in a broad clinical context, including age, race, family history, digital rectal exam, prostate size, results of prior te sting (prostate biopsy, free PSA, PCA3), and use of 5-alpha reductase inhibitors. Considering the high incidence of asymptomatic cancer in the general population that may not pose an ultimate risk to a patient, the decision to recommend urological evaluation or prostate biopsy should be individualized after consideration of all these factors. REFERENCE: Lizzette Lerma M.D., M.P.H., Jj Harding M.D., Ph.D., Amaury Salas M.D., Janet Godinez, M.P.H., Disha Rodgers Sc.D. Effect of Verification Bias on Screening for Prostate Cancer by Measurement of Prostatic Specific Antigen. N Engl J Med 2003,349:335-42. Performed By: #### PSAS1, CMP, LIPB #### [facility] [address] [place], [place] [address] COMP METABOLIC PANEL Collected: 06/18/2017 Status: F Source: [place] 8:57 AM [facility] REPOSITORY TYPE CODE TESTS RESULT OUT OF REFERENCE UNITS RANGE LAB TP 6.3-8.0 g/dL Protein, Total 7.4 LAB ALB 3.9-4.9 g/dL Albumin 4.1 LAB CA 8.5-10.2 mg/dL Calcium, Total 9.3 LAB TBIL 0.2-1.3 mg/dL Bilirubin, Total 0.3 LAB ALKP 36-108 U/L Alkaline Phosphatase 60 LAB AST 14-40 U/L AST 21 LAB GLU 74-99 mg/dL Glucose High 109 Result Comment: The [place] Diabetes Association (ADA) provides guidance for cutoff values for fasting glucose and random glucose. The ADA defines fasting as no caloric intake for at least 8 hours. Fas ting plasma glucose results between 100 to 125 mg/dL indicate increased risk for diabetes (prediabetes). Fasting plasma glucose results greater than or equal to 126 mg/dL meet the criteria for diagnosis of diabetes. In the absence of unequivocal hyperglycemia, results should be confirmed by repeat testing. In a patient with classic symptoms of hyperglycemia or hyperglycemic crisis, random plasma glucose results greater than or equal to 200 mg/dL meet the criteria for diagnosis of diabetes. Reference: Standards of Medical Care in Diabetes 2016, [place] Diabetes Association. Diabetes Care. 2016.39(Suppl 1). LAB BUN 9-24 mg/dL BUN 21 LAB CRET 0.73-1.22 mg/dL Creatinine 1.08 LAB NA 136-144 mmol/L Sodium 141 LAB K 3.7-5.1 mmol/L Potassium 4.0 LAB CL 97-105 mmol/L Chloride 103 LAB CO2 22-30 mmol/L CO2 22 LAB AGAP 9-18 mmol/L Anion Gap 16 LAB ALT 10-54 U/L ALT 24 LAB GFRAA eGFR- Amer. >60 LAB GFRNAA . eGFR-All Other Races >60 Result Comment: eGFR (Estimated GFR) Units of measure: mL/min/1.73 meters squared eGFR is derived from the reexpressed MDRD Study equation using the following parameters: serum creatinine, age, gender and race. The creatinine assay has been calibrated to be traceable to IDMS. An eGFR <60 mL/min/1.73m2 for >3 months is consistent with chronic kidney disease. Refer to KDOQI guidelines for clinical interpretation. In patients with unstable renal function, e.g. those with acute kidney injury, the eGFR may not accurately reflect actual GFR. Performed By: #### PSAS1, CMP, LIPB #### [facility] [address] [place], [place] [address] LIPID PANEL, BASIC Collected: 06/18/2017 Status: F Source: [place] 8:57 AM [facility] REPOSITORY TYPE CODE TESTS RESULT OUT OF REFERENCE UNITS RANGE LAB CHOL <200 mg/dL Cholesterol 188 Result Comment: <200 mg/dL, Desirable 200-239 mg/dL, Borderline high >239 mg/dL, High LAB TRIGLY <150 mg/dL Triglyceride 54 Result Comment: <150 mg/dL, Normal 150-199 mg/dL, Borderline high 200-499 mg/dL, High >499 mg/dL, Very high LAB HDL >39 mg/dL HDL-Cholesterol 51 Result Comment: 40-59 mg/dL, Acceptable >59 mg/dL, High: Negative risk factor for coronary heart disease <40 mg/dL, Low: Positive risk factor for coronary heart disease LAB LDL <100 mg/dL LDL-Cholesterol High 126 Result Comment: <100 mg/dL, Optimal 100-129 mg/dL, Near optimal/above optimal 130-159 mg/dL, Borderline high 160-189 mg/dL, High >189 mg/dL, Very high Secondary prevention optimal LDL Cholesterol levels are recommended to be < 70 mg/dL LAB NONHDL <130 mg/dL Non HDL High Cholesterol 137 Result Comment: <130 mg/dL, Optimal 130-159 mg/dL, Near optimal/above optimal 160-189 mg/dL, Borderline high 190-219 mg/dL, High >219 mg/dL, Very high Secondary prevention optimal non HDL Cholesterol levels are recommended to be < 100 mg/dL LAB FT hrs Fasting Time 13 LAB VLDL <30 mg/dL VLDL Cholesterol 11 LAB TCHDL <5.10 TC:HDL Ratio 3.69 LAB LDLHDL <2.54 LDL:HDL Ratio 2.47 Result Comment: Reference: 1. National Cholesterol Education Program ATP III Guideline At-A-Glance Quick Desk Reference: National Heart, Lung, and Blood [place]. National Institutes of Health. 2001: NIH Publication No. 01-3305. 2. An International Atherosclerosis Society position paper: global recommendations for the management of dyslipidemia: executive summary, Atherosclerosis. 2014: 232(2):410-413. Performed By: #### PSAS1, CMP, LIPB #### [facility] [address] [place], [place] [address] PROGRESS Observed: 06/18/2017 Status: COMPLETED Source: [place] 8:09 AM [facility] REPOSITORY HNO ID: [id number] Author: Radha Kamara Service: (none) Author Type: Physician Type: Progress Notes Filed: 06/18/2017 4:09 PM Note Text: Chief Complaint Patient presents with: F/U 3 Month: DM and medication HPI Silviano Rangel is a 67 year old male who presents here today for a 3 mo f/u. Went to [place] after having surgery and plans on returning back. Hypertension - Since losing weight would like to discuss cutting down on medication. Denies checking BP at home. Denies chest pain, sob or dizziness. Currently taking Lisinopril 10 mg once daily and Triamterene-HCTZ 37.5-25 mg once daily. ADD - Currently doing very well on dosage of Adderall 30 mg 1 tab po bid with occasional days he doesn't need it. States that he better focus and retention. Would like to complete a lipid panel, admits to having a little bit of cream in his coffee this am. Goes to the gym every day, walking on the [employer] [place] 3-4 miles daily and has weight restrictions still. Working on a refined diet as well, with eating a lot vegetables and fruits, no pop. Working on trying to get down to 200 lbs. Prostatectomy - Had surgery done by Dr. Mahoney on 05/23/17, recovering well. Minimal leakage with bending over and sneezing. Able to urinate well. Asthma - Hasn't used inhalers in months with weight loss. Past medical history, appointments, medications, allergies reviewed. Previous Medical History PAST MEDICAL HISTORY Diagnosis Date - Abdominal pain, generalized - Asthma - Obstructive sleep apnea - Snoring - Unspecified essential hypertension Essential hypertension Previous Surgical History PAST SURGICAL HISTORY Procedure Laterality Date - APPENDECTOMY - CARPAL TUNNEL RIGHT WRIST 01/04/10 - COLONOSCOP W/ OR W/O [facility] SPEC 01/20/07 screening thru [facility] - COLONOSCOP W/ OR W/O [facility] SPEC 07/25/2016 normal colonoscopy 10 year follow up - EGD W/O OR W/BRUSH/WASH 06/23/2008 EGD - LAP CHOLECYSTECT/CHOLANGIOGRAPHY 07/07/08 - LEFT WRIST CARPAL TUNNEL ONLY 01/04/10 - PAST SURGICAL HISTORY OF 01/2004 HEEL SPUR left - PAST SURGICAL HISTORY OF 11/16/2016 Nose procedure, by Dr. Chua - PAST SURGICAL HISTORY OF N/A 05/23/2017 Prostectomy - Dr. Cohen - REMOVAL OF HEEL SPUR 12/20/09 right heel - REMOVAL OF TONSILS,<12 Y/O Tonsillectomy - REPAIR ROTATOR CUFF,ACUTE Rotator cuff repair - ROTATOR CUFF REPAIR 2011 right Family History FAMILY HISTORY Problem Relation Age of Onset - Heart Mother - Stroke Mother - None Father - None Brother Patient Allergies ALLERGIES No Known Allergies Current Medications Current Outpatient Prescriptions on File Prior to Visit: Amphetamine-Dextroamphetamine (ADDERALL) 30 mg tablet Take 1 tablet by mouth twice daily for 31 days.Earliest Fill Date: 05/08/17 Amphetamine-Dextroamphetamine (ADDERALL) 30 mg tablet Take 1 tablet by mouth twice daily for 30 days.Earliest Fill Date: 06/08/17 dextroamphetamine-amphetamine (ADDERALL) 20 mg tablet Take 1 tablet by mouth twice daily. lisinopril (ZESTRIL, PRINIVIL) 10 mg tablet Take 1 tablet by mouth once daily. triamterene-hydrochlorothiazide 37.5-25 mg per capsule Take 1 capsule by mouth once daily. ketoconazole (NIZORAL) 2 % cream Apply 1 application to affected area twice daily. APPLY TOPICALLY ONCE DAILY FOR 2 WEEKS COMPOUNDED PRESCRIPTION CPAP @ 11 cm of water with humidification. Mask (per patient preference) optional chin strap (if indicated) , filters, tubing, humidifier and lifetime supplies. Dx. TAE 327.23 Cholecalciferol, Vitamin D3, 1,000 unit cap Take 1 capsule by mouth once daily. vitamin b complex (B-COMPLEX) ORAL Tab one tablet daily No current facility-administered medications on file prior to visit. Social History Social History Marital status: Spouse name: Years of education: Number of children: Social History Main Topics Smoking status: Never Smoker Smokeless status: Never Used Comment: smoked a year about 40 years ago Alcohol use: No Drug use: No Sexual activity: Yes Partners with: Female EXAM: BP 134/74 (BP Site: Left Arm, BP Position: Sitting, BP Cuff Size: Regular Adult) Pulse 60 Resp 16 Wt 113.8 kg (250 lb 12.8 oz) BMI 34.01 kg/m2 General Appearance: Well appearing, alert, in no acute distress, well-hydrated, well nourished., Obese. Lungs: Lungs clear to auscultation. No wheezing, rhonchi, rales. Heart: RRR without murmur, gallop, or rubs. No ectopy. Health Maintenance List HEPATITIS C SCREENING due on 1995 PNEUMOVAX AGE 65 AND OVER WITH 5YR LOOKBACK(1) due on 2016 DIABETES SCREEN due on 06/16/2019 LIPID SCREEN due on 06/16/2021 TETANUS due on 06/21/2026 COLORECTAL CANCER SCREENING,SEE MODIFIER due on 07/25/2026 PROSTATE CANCER SCREENING DISCUSSION Completed ADULT PREVNAR-13 Completed INFLUENZA Completed Data reviewed External ASSESSMENT/PLAN: 1. Essential hypertension, benign - ICD9: 401.1, ICD10: I10 (primary diagnosis) - good control D/C Triamterene-HCTZ; continue lifestyle changes 2. Attention deficit disorder, unspecified hyperactivity presence - ICD9: 314.00, ICD10: F98.8 Continue current medication regimen. 3. Screening for lipid disorders - ICD9: V77.91, ICD10: Z13.220 Complete Lipid 4. TAE (obstructive sleep apnea) - ICD9: 327.23, ICD10: G47.33 - CPAP Follow up in 3 mo Radha Kamara MD The documentation for this note was completed by Khadra Mena Ma acting as scribe for Radha Kamara MD. June 18, 2017 8:09 AM. ALLERGIES ALLERGIES DATE TYPE / CODE NAME / CODE REACTION SEVERITY SOURCE 11/09/2016 Drug No Known Unknown [facility] Allergy/416 Allergies/F84859 Hospital 581872(SNOM 0388(RXNORM) Repository ED CT) Drug NO KNOWN [facility] Class/71907 ALLERGIES [facility] [place] 1003(SNOMED Repository CT) ENCOUNTERS ENCOUNTERS ADMIT/DISCHARGE ACCOUNT ADMITTING ENCOUNTER LOCATION SOURCE NUMBER CLASS 04/16/2018 [id number] Ambulatory [facility] ing:LAB Repository 04/16/2018/04/16/20 [id number] [facility]ulatory [facility] [place] Repository 03/20/2018/03/20/20 [id number] Ambulatory [facility] [place] Repository 03/06/2018/03/06/20 [id number] Ambulatory [place] [facility] [place] Repository 02/26/2018/02/27/20 [id number] ISIDRO, Ambulatory [place] [facility] [place] Repository 02/05/2018/02/07/20 [id number] Ambulatory [place] 18 [facility] [place] Repository 02/05/2018/02/07/20 [id number] Ambulatory [place] 18 [facility] [place] Repository 01/29/2018 [id number] Ambulatory [facility]MS[facility] [place] [facility] Repository 01/29/2018/01/30/20 [id number] Ambulatory [place] [address] [place] [address] ing:[facility] Repository 01/25/2018/01/29/20 [id number] Ambulatory [facility] [place] Repository 01/18/2018/01/22/20 [id number] Ambulatory [place] 18 [facility] [place] Repository 01/18/2018/01/19/20 [id number] Ambulatory [place] 18 [facility] [place] Repository 01/17/2018/01/18/20 [id number] Ambulatory [facility] [place] Repository 01/17/2018/01/19/20 [id number] Ambulatory [facility] [place] Repository 12/26/2017/12/28/19 [id number] Ambulatory [facility] [place] Repository 12/21/2017/12/25/19 [id number] Ambulatory [facility] [place] Repository 12/21/2017/12/25/19 [id number] Ambulatory [facility] [place] Repository 12/21/2017/12/22/19 [id number] Ambulatory [facility] [place] Repository 12/21/2017/12/22/19 [id number] Ambulatory [facility] [place] Repository 12/19/2017/12/21/19 [id number] Ambulatory [facility] [place] Repository 11/27/2017/11/29/19 [id number] Ambulatory [facility] [place] Repository 11/22/2017/11/23/19 [id number] Ambulatory [facility] [place] Repository 11/22/2017/11/23/19 [id number] Ambulatory [address] Repository 11/14/2017/11/17/19 [id number] Ambulatory [address] Repository 10/24/2017/10/25/19 [id number] Ambulatory [address] Repository 10/24/2017/10/26/19 [id number] Ambulatory [address] Repository 10/24/2017/10/25/19 [id number] Ambulatory [address] Repository 10/15/2017 [id number] [facility] ing:LAB Repository 10/09/2017 [id number] Ambulatory [facility] Repository 10/09/2017/10/11/19 [id number] Ambulatory [address] Repository 09/18/2017/09/21/19 [id number] Ambulatory [address] Repository 07/06/2017 [id number] [facility] ing:LAB Repository 06/18/2017/06/18/19 [id number] Ambulatory [address] Repository 06/18/2017/06/18/19 [id number] Ambulatory [address] Repository PAYERS PAYERS ENCOUNTER GUARANTOR PAYER SUBSCRIBER SOURCE 04/16/2018 SILVIANO Hand Primary [address] Insurance:HUMANA [place]AKER[place] PPOPolicy [id number] Hospital [id number]: (419) Number: Repository [phone] () [id number] Date:[id number] [address]IA: 04/16/2018 Secondary NOT GIVENUNK [place] Insurance:SELF PAY [facility] Number: Effective Repository Date:2018-04-16 01/29/2018 SILVIANO Hand Primary SILVIANO [address] Insurance:[facility]NA [facility] [place] PPOPolicy [id number] Hospital [address]Fvi: (419) Number: Repository [phone] () [id number] Date:[id number] [address] [address]TV: 01/29/2018 Secondary NOT GIVENUNK [place] Insurance:SELF PAY [facility] Effective Repository Date:2018-01-29 01/29/2018 SILVIANO Hand Primary SILVIAN[address] Insurance:HUMANA BAKERDOB: [place], [place] MEDICARE [facility] [id number] Hospital [address]Hug: [phone]) Number: Repository [phone] () [id number] Date:4522-64-95LJ [address] [address]KU: 01/29/2018 Secondary NOT GIVENUNK [place] Insurance:SELF PAY [facility] Number: Effective Repository Date:2018-01-21 10/15/2017 SILVIANO Hand Primary SILVIAN[address]ANG[address] Insurance:HUMANA BAKERDOB: [place]olicy [id number] [id number]: [phone]) Number: Repository [phone] () [id number] Date:8595-11-36AO [address] [address]IG: 10/15/2017 Secondary NOT GIVENUNK [place] Insurance:SELF PAY [facility] Number: Effective Repository Date:2017-10-15 07/06/2017 SILVIANO Hand Primary SILVIANO [address] Insurance:HUMANA BAKERDOB: [place] PPOPolicy [id number] [id number]: Number: Repository [phone] [id number] -2 (HP) Date:6100-80-92[place] [address] [address]BP: 07/06/2017 Secondary NOT GIVENUNK [place] Insurance:SELF PAY [facility] Number: Effective Repository Date:2017-07-06
== END ==
PROVIDERS: Family Provider Family Medicine; PCP Family Medicine; Referring Provider Urology; Visit Provider Urology
DX: C61 Malignant neoplasm of prostate (principal)
CPT/HCPCS: 36415; 84153

== ENCOUNTER → 2018-11-13 10:01 | Outpatient (CLI) | payer MEDICARE, SELFPAY ==
[2018-11-13 08:58] VITALS: BMI 35.6
[2018-11-13 11:52] LABS: PSA,Total- Diagnostic < 0.01 ng/mL (0.0-4.0)
== END ==
PROVIDERS: Family Provider Family Medicine; PCP Family Medicine; Referring Provider Urology; Visit Provider Urology
DX: C61 Malignant neoplasm of prostate (principal)
CPT/HCPCS: 36415; 84153

== ENCOUNTER → 2019-03-19 07:59 | Outpatient (CLI) | payer MEDICARE, SELFPAY ==
[2018-11-13 08:58] VITALS: BMI 35.6
[2019-03-19 09:07] LABS: PSA,Total- Diagnostic < 0.01 ng/mL (0.0-4.0)
== END ==
PROVIDERS: Family Provider Family Medicine; PCP Family Medicine; Referring Provider Urology; Visit Provider Urology
DX: Z85.46 Personal history of malignant neoplasm of prostate (principal)
CPT/HCPCS: 36415; 84153

== ENCOUNTER → 2019-06-07 08:15 | Outpatient (CLI) | payer MEDICARE, SELFPAY ==
[2018-11-13 08:58] VITALS: BMI 35.6
[2019-06-07 11:01] LABS: AST(SGOT) 18 U/L (15-37); Alanine Aminotransfer ALT/SGPT 28 U/L (16-61); Albumin, Serum 3.9 g/dL (3.2-5.0); Alkaline Phosphatase 70 U/L (45-117); Anion Gap 5 (5-15); BUN 21 mg/dL (7-18); BUN/Creat Ratio 19.6 RATIO (10-20); Bilirubin, Direct 0.13 mg/dL (0.00-0.30); Chloride 104 mmol/L (98-107); Cholesterol 180 mg/dL (200); Creatinine, Serum 1.07 mg/dL (0.70-1.30); EST Glomerular Filtration Rate 73 mL/min (>60); Est Glom Filt Rate - Afr Amer 88 mL/min (>60); Glucose 101 mg/dL (74-106); High Density Lipoprotein 46 mg/dL; Potassium 4.1 mmol/L (3.5-5.1); Protein, Total 7.9 g/dL (6.4-8.2); Sodium Level 138 mmol/L (136-145); Triglycerides 80 mg/dL; Very Low Density Lipoprotein 16 mg/dL (5-40)
== END ==
PROVIDERS: PCP Family Medicine; Referring Provider Internal Medicine Cardiovascular Disease; Visit Provider Internal Medicine Cardiovascular Disease
DX: I10 Essential (primary) hypertension (principal); E78.5 Hyperlipidemia, unspecified
CPT/HCPCS: 36415; 80048; 80061; 80076